=== PATIENT | male | born 1945 | race Asian ===

== ENCOUNTER 2017-07-14 08:00 | Outpatient (RCR) | payer OTHER, SELFPAY ==
--- NOTE | 2017-06-07 10:25 | HP.PTEVAL_ITS ---
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 Date of Evaluation: 05/31/17 Physical Therapist: Sandip Bartlett - Visit Plan Frequency: 2x /Week Duration: 4 Weeks Plan: Start with flexion based exercises, HS stretching, nerve glides, TA activation progression. - Subjective Subjective: Pt. 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 Pt. has lumbar spine degeneration at L2/L3 and L3/L4. Pt. reports having increased pain fro ~10 days. He reports no mechanism of injury, but that his pain just started to occur. Pt. reports pain at lumbar spine, but mostly at posterior thighs and gluteal regions. Pt. denies N/T and no changes in B/B. Pt. reports increased pain with: walking, standing, lifting. Pt. has decreased pain with lying down and heat. Pt. is able to complete all ADls, but has increased pain with work and household activities. Pt. is hopeful to reduce symptoms in order to get back to all activities without limitations. - Pain bilateral posterior thighs Pain Intensity (Out of 10): 4 Pain Intensity Range: 2, 5 lumbar spine Pain Intensity (Out of 10): 3 Pain Intensity Range: 1, 4 - Objective POSTURE: Pt. has redcued lumbar lordosis, normal thoracic kyphosiss. Pt. has slight sway back positioning. Pt. has slight FH positioning. Pt. has normal iliac crest heights with equal wt. shifting between bilateral LEs. PALPATION: Pt. has increased tenderness at lumbar erector spinea throughout lumbar spine. Pt. has no tenderness at SI joint or piriformis bilaterally. No pain at bilateral HS to palpation. NEUROLOGICAL: Pt. has normal sensation to light and sharp touch of bilateral LEs. Pt. has 2+ bilateral achilles and patellar DTR. Pt. is able to rise on heels and toes without issues or LOB. ROM: LUMBAR SPINE : flexion- min loss NE, ext min/mod loss increase NW, SB right min loss NE, SB Left min loss NE, rotation R and L min loss NE. Pt. has normal hip ROM bilaterally, HS tightness noted. MMT: RLE- ankle 5/5 throughout; knee- ext 5/5 , flexion 5-/5;hip- flexion 4+/5, abd 4/5, ext 4+/5. LLE- ankle- 5/5 throughout ; knee- ext 4/5, flexion 5-/5; hip- flexion 4+/5, abd 4/5, ext 4+/5. Core- poor+ . GAIT: Pt. has normal gait pattern, but has increased sway back positioning with gait. Pt. reports increased pain with gait compared to static standing or lying. - Special Tests L/S Slump test left side: Negative L/S Slump test right side: Negative L/S Left Straight Leg Raise: Negative L/S Right Straight Leg Raise: Negative Lumbar Standing: Flexion - Mechanical Response: No effect Lumbar Standing: Flexion - Symptoms During Testing: No effect Lumbar Standing: Flexion - Symptoms After Testing: No effect Lumbar Standing: Extension - Mechanical Response: No effect Lumbar Standing: Extension - Symptoms During Testing: Increases Lumbar Standing: Extension - Symptoms After Testing: No worse Lumbar Standing: Right Side Glides - Mechanical Response: No effect Lumbar Standing: Right Side [place] - Symptoms During Testing: No effect Lumbar Standing: Right Side [place] - Symptoms After Testing: No effect Lumbar Standing: Left Side [place] - Mechanical Response: No effect Lumbar Standing: Left Side [place] - Symptoms During Testing: No effect Lumbar Standing: Left Side [place] - Symptoms After Testing: No effect Lumbar Lying: Flexion - Mechanical Response: No effect Lumbar Lying: Flexion - Symptoms During Testing: Decreases Lumbar Lying: Flexion - Symptoms After Testing: No better Lumbar Lying: Extension - Mechanical Response: No effect Lumbar Lying: Extension - Symptoms During Testing: Increases Lumbar Lying: Extension - Symptoms After Testing: No worse Lumbar Static: Slouched Sit - Mechanical Response: No effect Lumbar Static: Slouched Sit - Symptoms During Testing: No effect Lumbar Static: Slouched Sit - Symptoms After Testing: No effect Lumbar Static: Sitting Erect - Mechanical Response: No effect Lumbar Static: Sitting Erect - Symptoms During Testing: No effect Lumbar Static: Sitting Erect - Symptoms After Testing: No effect Lumbar Static:Lying Prone in Extension - Mechanical Response: No effect Lumbar Static: Lying Prone in Extension - Sx During Testing: Increases Lumbar Static: Lying Prone in Extension - Sx After Testing: Worse - Goals Goal 1:: Pt. to be I with HEP. Goal Time Frame: 4-6 Weeks Goal 2:: Pt. to have increased B hip and core strength by 1/2 grade of all effected musculature reducing stress on lumbar spine with all functional mobility. Goal Time Frame: 4-6 Weeks Goal 3:: Pt. to have increased lumbar spine by 25% in all directions without increase in symptoms. Goal Time Frame: 4-6 Weeks Goal 4:: Pt. to ambulate and tolerate all job activities without issues allowing for increased quality of life. Goal Time Frame: 4-6 Weeks Goal 5:: Pt. to be educated in proper prophalaxis techniques. 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 Pt. has no marked weakness, but does have increased weakness in his core musculature. Pt. would benefit from PT to increase ROM, increase core and hip strength, and decrease symptoms. Rehabilitation Potential: Excellent - Anticipated Interventions Patient/Client Instruction: Educate patient on: Condition, Plan of Care, Risk Factors, Benefits of Fitness Program For the Purpose of:: To improve safety, To improve health and function, To foster healthy habits, To improve decision making, To facilitate caregiver knowledge, To improve self management, To prevent re-injury, To improve ability to perform tasks related to life management, To improve tolerance to ADL's Therapeutic Exercise to Include: Strength training, Power training, Endurance training, Body mechanics, Postural training, Flexibilty training, Passive ROM, Active ROM, Dynamic Lumbar Stabilization, Helga Exercises For the Purpose of:: To decrease pain, To increase ROM, To improve nutrient delivery to tissue, To increase oxygenation perfusion, To improve muscle performance and motor function, To improve gait and locomotor functions, To improve health of tissue, To decrease soft tissue restriction Manual Therapy Techniques to Include: Mobilization, Functional dry needling, Soft tissue mobilization For the Purpose of:: To decrease pain, To increase ROM, To improve nutrient delivery to tissue, To increase oxygenation perfusion, To improve muscle performance and motor function, To improve ability to perform ADL's, To improve health of tissue, To decrease soft tissue restriction, To increase flexibility/ ROM IF ES: Yes Cryotherapy (ice pack, ice massage): Yes Ultrasound (thermal/non thermal): Yes Pelvic traction supine: Yes For the Purpose of:: To decrease pain, To increase ROM, To improve nutrient delivery to tissue, To increase oxygenation perfusion, To improve muscle performance and motor function, To improve ability to perform ADL's, To improve health of tissue, To decrease soft tissue restriction Thank you for the opportunity to evaluate your patient. For Medicare and Medicare HMO plans, please review the plan of care and approve it. It will need to be FAXED BACK to us at [phone] for Medicare purposes. Please let me know if there are questions or concerns regarding this plan of care. Physician Signature: Date:
--- NOTE | 2017-07-22 12:10 | HP.PTDCSUM ---
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 Discharge Date: 07/18/17 Please see the following information for a summary of their discharge status. - Subjective Subjective: Pt. reports I am doing pretty well today. Pt. reports no pain in low back or R leg. Pt. reports minimal LUE pain. Pt. reports being 95% better. Pt. reports occassional L shoulder pain, but is better. - Pain bilateral posterior thighs Pain Intensity (Out of 10): 0 lumbar spine Pain Intensity (Out of 10): 0 R lateral hip Pain Intensity (Out of 10): 0 L shoulder Pain Intensity (Out of 10): 1 - Overall Improvement % Improvement: 95 - Objective Objective/Function: Pt. has improved motion and decreased R sided lumbar/leg pain. Pt. has slight L shoulder pain, but minimal. Pt. is independent with [facility] HEP for both back progression and L RTC stabilization. Pt. reports no issuses. Pt. is sleeping better as well. Pt. is able to complete all ADLs and work activities without issues. - Goals Goal 1:: Pt. to be I with HEP. Goal Progress: Goal Met Goal 2:: Pt. to have increased B hip and core strength by 1/2 grade of all effected musculature reducing stress on lumbar spine with all functional mobility. Goal Progress: Goal Met Goal 3:: Pt. to have increased lumbar spine by 25% in all directions without increase in symptoms. Goal Progress: Goal Met Goal 4:: Pt. to ambulate and tolerate all job activities without issues allowing for increased quality of life. Goal Progress: Goal Met Goal 5:: Pt. to be educated in proper prophalaxis techniques. Goal Progress: Goal Met - Plan Plan: Pt. to be DC from PT to HEP at this point in time. - D/C Information Discharge Comments: Pt. progressed as expected with PT for both lumbar radiculopathy and L shoulder RTC syndrome. Pt. is no longer having pain in R leg or lumbar spine, but does have slight 1/10 pain in L shoulder at times. Pt. is indepedent with HEP for both. Pt. will be DC from PT at this point in time. If there are questions or concerns regarding this patient's physical therapy, please feel free to call me at [phone]. Thank you for the referral of this patient. Sincerely, Sandip Bartlett
== END 2017-07-14 19:00 | disposition home or self-care (01) ==
LOC: PT 08:00
PROVIDERS: Family Provider Internal Medicine; PCP Internal Medicine
DX: S43.422D Sprain of left rotator cuff capsule, subsequent encounter (principal); M47.816 Spondylosis without myelopathy or radiculopathy, lumbar region
CPT/HCPCS: 97035; 97110; 97162

== ENCOUNTER → 2017-08-17 10:00 | Outpatient (CLI) | payer OTHER, SELFPAY | PROVIDERS: Family Provider Internal Medicine; PCP Internal Medicine; Visit Provider Internal Medicine Cardiovascular Disease | DX: R07.9 Chest pain, unspecified (principal) | CPT/HCPCS: 36415; 84484 ==

== ENCOUNTER → 2018-06-30 06:26 | Outpatient (CLI) | payer OTHER, SELFPAY ==
[2018-06-22 08:56] VITALS: BMI 23.1
--- NOTE | 2018-06-30 06:27 | ECHOCS_ITS ---
Reason For Study: S/P CABG Procedure This was a 2D Doppler, Color Flow transthoracic echocardiogram. Exam performed in department. Left Ventricle Normal LV size. Left ventricular systolic function is normal. The estimated ejection fraction is 65 %. Stage 1 diastolic dysfunction. No regional wall motion abnormalities noted. Right Ventricle Normal RV size. Normal systolic function. Atria Normal left atrium. Normal right atrium. Mitral Valve Normal mitral valve. Trivial eccentric mitral valve insufficiency. Tricuspid Valve Normal tricuspid valve. Mild (1+) tricuspid valve insufficiency. Pulmonary artery systolic pressure is 27 mmHg. Pulmonic Valve Normal pulmonic valve. Great Vessels Normal aortic root. The pulmonary artery is normal size. Normal inferior vena cava. Pericardium/Pleural No pericardial effusion. Medication Diluted definity 2ml given slow IV push to enhance endocardial definition. MMode/2D Measurements & Calculations LVIDd: 3.8 cm IVSd: 1.2 cm Ao root diam: 2.9 cm LVIDs: 2.5 cm LVPWd: 1.1 cm RVDd: 2.9 cm FS: 34.5 % LAV(MOD-bp): 32.7 ml EDV(MOD-sp4): 72.0 ml EDV(MOD-sp2): 63.0 ml LAV(MOD-bp) Indexed: 18.1 ml/m2 ESV(MOD-sp4): 21.9 ml EF(MOD-sp2): 69.7 % LAV(MOD-sp2): 29.3 ml EF(MOD-sp4): 69.5 % LAV(MOD-sp4): 33.8 ml SV(MOD-sp4): 50.1 ml SV(MOD-sp2): 43.9 ml LA A4 area: 15.3 cm2 LA dimension(2D): 3.6 cm RA A4 area: 13.0 cm2 Time Measurements MV dec time: 0.30 sec Doppler Measurements & Calculations MV E max maurisio: 64.1 cm/sec Lat Peak E' Maurisio: 6.9 cm/sec Med Peak E' Maurisio: 5.1 cm/sec MV A max maurisio: 86.4 cm/sec E/E' lat: 9.3 E/E' med: 12.6 MV E/A: 0.74 Ao V2 max: 137.6 cm/sec LV V1 max: 123.2 cm/sec PA V2 max: 134.6 cm/sec Ao max P.6 mmHg LV V1 max P.1 mmHg TR max maurisio: 240.1 cm/sec TR max P.1 mmHg Interpretation Summary Normal LV size. Left ventricular systolic function is normal. The estimated ejection fraction is 65 %. Stage 1 diastolic dysfunction. Mild (1+) tricuspid valve insufficiency. Ordering Physician: Beck De La Paz Referring Physician: TEDDY ELENA Performed By: Prema Cunningham, PRADEEP, RVT
--- NOTE | 2018-06-30 08:45 | STRESSREP ---
Stress Test Report Exercise myocardial perfusion stress test. 72-year-old male with a history of coronary artery bypass surgery. Medications: Aspirin, Lipitor, Glucophage, Toprol, losartan. Stress protocol: Resting EKG demonstrates normal sinus rhythm with a rate of 71 bpm normal intervals are noted resting blood pressure 144/82 mmHg. The patient exercised according to regular Rene protocol for total duration of 9 minutes and 46 seconds the maximum heart rate attained was 160 bpm which was 108% of maximum predicted heart rate the maximum workload was 11.3 metabolic equivalents. The patient maintained sinus rhythm throughout the recording. At rest there were no ST or T wave changes noted suggest ischemia peak exercise upsloping ST changes measuring 1.4-1.6 mm were noted. The above did not meet the criteria for ischemia. The test was terminated due to leg fatigue and shortness of breath. The resting blood pressure 144/82 with a peak blood pressure 164/58. No clinical angina was noted. Myocardial perfusion protocol. 11.2 mCi of technetium 99m sestamibi was injected at rest. The patient exercised according to regular Rene protocol for total duration of 9 minutes and 46 seconds at peak exercise 32.5 mCi of technetium 99m sestamibi was injected stress images were obtained stress and rest images were reconstructed and compared in the short axis vertical long horizontal long axis. Gated images were also obtained per Perfusion SPECT analysis: Review of the stress images demonstrate normal uptake of tracer noted in all areas of the myocardium. The resting images similarly demonstrate normal uptake of tracer noted in all areas of the myocardium. No reversibility is noted suggest ischemia. The gated ejection fraction is 80%. Conclusion: Normal exercise myocardial perfusion stress test at a high workload. Excellent functional capacity. No arrhythmias noted. No clinical angina present.
== END ==
PROVIDERS: Family Provider Internal Medicine; PCP Internal Medicine; Referring Provider Internal Medicine Cardiovascular Disease; Visit Provider Internal Medicine Cardiovascular Disease
DX: I25.10 Atherosclerotic heart disease of native coronary artery without angina pectoris (principal); Z95.1 Presence of aortocoronary bypass graft
CPT/HCPCS: 78452; 93017; 93306; A9500; Q9957; A4216; C8929

== ENCOUNTER → 2019-12-25 07:22 | Outpatient (CLI) | payer OTHER, SELFPAY ==
[2018-12-26 06:57] VITALS: BMI 23.1
--- NOTE | 2019-12-25 07:23 | CDU_ITS ---
Reason For Study: vertigo Rt. Velocities/BP Lt. Velocities/BP Prox CCA 95.6/22.6 cm/sec. Prox CCA 78.6/23.9 cm/sec. Mid CCA 79.9/21.3 cm/sec. Mid CCA 77.3/21.3 cm/sec. Dist CCA 77.3/18.6 cm/sec. Dist CCA 95.6/29.1 cm/sec. Prox ICA 64.3/17.3 cm/sec. Prox ICA 87.8/21.3 cm/sec. Mid ICA 59.1/14.7 cm/sec. Mid ICA 59.1/18.6 cm/sec. Dist ICA 52.5/21.3 cm/sec. Dist ICA 56.5/22.6 cm/sec. Rt. ICA/CCA = .8. Lt. ICA/CCA = 1.1. Prox ECA 60.4/9.5 cm/sec. Prox ECA 63.0/6.9 cm/sec. Rt. Vert. 42.1/8.2 cm/sec. Lt. Vert. 61.7/13.4 cm/sec. Right Extracranial There is intimal thickening but no significant atherosclerotic plaque noted in the right common carotid artery. There is intimal thickening but no significant atherosclerotic plaque noted in the right internal carotid artery. There is intimal thickening but no significant atherosclerotic plaque noted in the right external carotid artery. Antegrade flow is noted in the right vertebral artery. Left Extracranial There is intimal thickening but no significant atherosclerotic plaque noted in the left common carotid artery. There is heterogeneous, irregular atherosclerotic plaque noted in the left internal carotid artery. There is intimal thickening but no significant atherosclerotic plaque noted in the left external carotid artery. Antegrade flow is noted in the left vertebral artery. Procedure Carotid Duplex [id number]. The exam was diagnostic. Exam performed in department. Interpretation Summary Minimal intimal thickening of the right internal carotid artery with less than 50% stenosis. <50% stenosis right external carotid Irregular calcific plaque at the proximal left internal carotid artery with less than 50% stenosis. <50% stenosis left external carotid Patent and antegrade vertebrals bilaterally with less than 50% stenosis bilaterally Ordering Physician: Beck De La Paz Performed By: David Gannon RVT
--- NOTE | 2019-12-25 10:14 | STRESSREP ---
Stress Test Report Exercise myocardial perfusion stress test. 74-year-old man with a history of diabetes coronary artery bypass surgery. Stress protocol: Resting EKG demonstrates normal sinus rhythm with a rate of 66 bpm. The resting blood pressure was 142/82 mmHg. The patient exercised according to regular Rene protocol for 9 minutes completing stage III of the Rene protocol. The maximum heart rate was 153 bpm which was 105% of max impacted heart rate the maximum workload was 10.1 metabolic equivalents. At rest there were no ST or T wave changes noted to suggest ischemia at peak exercise upsloping ST changes only were noted approximately 1.1 mm which did not meet the criteria for ischemia. No clinical angina was noted the test was terminated due to dyspnea. The peak blood pressure 178/70 mmHg. Rate-pressure product was 26,800. Myocardial perfusion protocol. 11.1 mCi of technetium 99m sestamibi was injected at rest. Patient exercised according to regular Rene protocol for a total duration of 9 minutes at peak exercise 35.0 mCi of technetium 99m sestamibi was injected stress images were obtained stress and rest images were reconstructed and compared in the short axis vertical long horizontal long axis. Gated images were also obtained P Perfusion SPECT analysis: Review of the stress images demonstrate normal uptake of tracer noted in all areas of the myocardium the resting images similar demonstrate normal uptake of tracer noted in all areas of the myocardium. No reversibility is noted suggest ischemia. Gated SPECT analysis: The gated ejection fraction is 79%. Conclusion: Normal exercise myocardial perfusion stress test at a high workload. Preserved ejection fraction. Excellent functional aerobic capacity. In comparison to the previous stress test from a year ago the above findings are similar except for the patient exercising for 46 seconds less.
== END ==
PROVIDERS: PCP Internal Medicine; Referring Provider Internal Medicine Cardiovascular Disease; Visit Provider Internal Medicine Cardiovascular Disease
DX: I25.10 Atherosclerotic heart disease of native coronary artery without angina pectoris (principal); Z95.1 Presence of aortocoronary bypass graft; R42 Dizziness and giddiness
CPT/HCPCS: 78452; 93017; 93880; A9500; A4216

== ENCOUNTER → 2020-09-11 14:53 | Outpatient (CLI) | payer OTHER, SELFPAY ==
[2018-12-26 06:57] VITALS: BMI 23.1
--- NOTE | 2020-09-11 14:56 | VDLE_ITS ---
Reason For Study: venous insufficiency, swelling RIGHT LEFT CFV is compressible, spontaneous, phasic, CFV is compressible, spontaneous, phasic, competent and demonstrates normal competent, and demonstrates normal augmentation. augmentation. FV is compressible, spontaneous, phasic, FV is compressible, spontaneous, phasic, competent and demonstrates normal competent and demonstrates normal augmentation. augmentation. POP V is compressible, spontaneous, phasic, POP V is compressible, spontaneous, phasic, competent and demonstrates normal competent and demonstrates normal augmentation. augmentation. T/P Trunk is compressible. T/P Trunk is compressible. PTV is compressible. PTV is compressible. RT PerV is compressible. LT PerV is compressible. SFJ is competent and measures .61 cm. SFJ is competent and measures .59 cm. GSV proximal thigh measures .4 x .42 cm. GSV is partially harvested. Short segment of GSV at knee measures .27 x .34 cm. the GSV in the proximal thigh is competent GSV INCOMPETENT throughout for greater than and measures .25 x .27 cm. 0.5 seconds. SSV proximal calf is competent and SSV proximal calf is competent and measures .16 x .21 cm. measures .19 x .23 cm. ASV at knee is INCOMPETENT for greater than 0.5 seconds and measures .29 x .31 cm. Piano Accompanist V 18 cm proximal to the medial malleolus is incompetent for greater than .5 seconds. Procedure This is a venous duplex using B-mode, color flow and spectral Doppler. Exam performed in department. The exam was diagnostic. VL/Venous Duplex US - Fabricio Extrem Interpretation Summary Deep veins of the lower extremities are bilaterally patent and compressible seg mentally. There is no evidence of deep vein thrombosis on either side. Valvular competence appears in tact within the proximal deep venous systems bilaterally. Sapheno-femoral junctions are bilater ally competent . The right great saphenous vein appears patent and compressible segmentally. The rig ht great saphenous vein appears segmentally incompetent. The left great saphenous vein has been pr eviously harvested, but for a short segment in the proximal thigh, which is competent. Small saphen ous veins are patent and competent bilaterally. The accessory saphenous vein at knee level on the ri t is incompetent. An incompetent certified credit counselor vein is noted in the right calf, located 18 centimete rs proximal to the right medial malleolus. Ordering Physician: Gian Colvin Performed By: David Gannon RVT
== END ==
PROVIDERS: PCP Internal Medicine; Referring Provider Podiatrist; Visit Provider Podiatrist
DX: I87.2 Venous insufficiency (chronic) (peripheral) (principal); M79.89 Other specified soft tissue disorders
CPT/HCPCS: 93970

== ENCOUNTER → 2020-09-23 14:05 | Outpatient (CLI) | payer OTHER, SELFPAY ==
[2018-12-26 06:57] VITALS: BMI 23.1
[2020-09-23 15:56] LABS: Anion Gap 7 (5-15); BUN 10 mg/dL (7-18); BUN/Creat Ratio 13.1 RATIO (10-20); Calcium,Total 8.9 mg/dL (8.5-10.1); Chloride 100 mmol/L (98-107); Creatinine, Serum 0.76 mg/dL (0.70-1.30); EST Glomerular Filtration Rate 106 mL/min (>60); Est Glom Filt Rate - Afr Amer 128 mL/min (>60); Glucose 198 mg/dL (74-106); Sodium Level 132 mmol/L (136-145)
[2020-09-23 17:13] LABS: Troponin-I HS 3.5 pg/mL (3.0-78.5)
== END ==
PROVIDERS: PCP Internal Medicine; Referring Provider Internal Medicine Cardiovascular Disease; Visit Provider Internal Medicine Cardiovascular Disease
DX: I25.10 Atherosclerotic heart disease of native coronary artery without angina pectoris (principal); R07.9 Chest pain, unspecified; Z95.1 Presence of aortocoronary bypass graft; I10 Essential (primary) hypertension; E78.00 Pure hypercholesterolemia, unspecified
CPT/HCPCS: 36415; 80048; 84484

== ENCOUNTER 2020-09-24 09:40 | Day surgery (SDC) | payer OTHER, SELFPAY ==
[2020-09-23 16:02] VITALS: BMI 22.0
[2020-09-24 07:21] VITALS: BMI 22.0
--- NOTE | 2020-09-24 09:55 | RAD_ITS ---
STUDY: X-RAY CHEST REASON FOR EXAM: Male, 74 years old. chest pain TECHNIQUE: PA and lateral views of the chest. COMPARISON: 07/28/2015 FINDINGS: Status post median sternotomy. The lungs are clear and expanded. There is no demonstrated pleural abnormality. Normal size heart. Normal mediastinum and maribell. Normal visualized pulmonary arteries. Normal visualized aortic arch and descending thoracic aorta. There is a dextroscoliosis of the thoracic spine. Normal visualized ribs, clavicles, and shoulders. There is no demonstrated abnormality of the visualized soft tissue structures of the upper abdomen. RAD/Chest PA and Lateral IMPRESSION: No active disease. Electronically Signed: Preet Villafuerte MD at 12:49 EDT Tel , Service support ,
[2020-09-24 09:57] LABS: Absolute Lymphocyte Count 1.25 X10^3/uL (0.83-4.51); Absolute Neutrophil Count 3.2 X10^3/uL (2.0-7.7); Basophil# 0.03 X10^3/uL; Basophil% 0.6 % (0-1); Eosinophil# 0.17 X10^3/uL; Eosinophils% 3.3 % (0-5); Hematocrit 44.9 % (40-54); Hemoglobin 14.3 g/dL (13.0-16.5); Lymphocyte # 1.25 X10^3/ul (0.83-4.51); Lymphocyte % 24.4 % (19-41); Mean Corp Hgb Conc 31.8 g/dL (32-36); Mean Corpuscular Hgb 28.3 pg (27.0-32.0); Mean Corpuscular Volume 88.9 fL (80-94); Mean Platelet Vol. 9.3 fl (6.2-12.0); Monocyte# 0.48 X10^3/uL; Monocyte% 9.4 % (0-10); NRBC Flagged by Analyzer 0 % (0-5); Neutrophil # 3.17 X10^3/uL (2.7-7.7); Neutrophil % 61.9 % (47-70); Platelet Count 281 K/mm3 (150-450); RBC Distribution Width CV 12.8 % (11.6-14.6); RBC Distribution Width SD 41.7 fl (35.1-43.9); Red Blood Count 5.05 M/mm3 (4.6-6.2); White Blood Count 5.1 K/mm3 (4.4-11.0)
[2020-09-24 13:01] LABS: Bedside Glucose 74 mg/dL (70-110)
--- NOTE | 2020-09-24 13:05 | CL.D_ITS ---
Patient Name: GRISELDA HANKINS Study Date: 09/24/2020 Performing: Beck De La Paz MD Ht: 68.11 inches 173 cm : 1945 Wt: 145.51 lbs 66 kg Age: 74 Gender: male BSA: 1.79 PROCEDURE(S) PERFORMED [id number]/COR/LV/CABG CLINICAL PROFILE AND INDICATIONS Indications: Worsening Angina Heart Failure: None Stress/Imaging Stress/Image Study Performed: No CAD Presentations: Stable angina. CONCLUSIONS [place] left anterior descending artery with moderate mid segment disease, mild disease noted in the c ircumflex artery, mild to moderate disease noted in the right coronary artery. Saphenous vein graft to the obtuse marginal branch and diagonal branches are patent. THOMAS to the LAD is presumed occluded due to the good flow and lack of competitive flow noted in the LAD territory. Preserved ejection fr action is noted. Patient also developed moderate allergic reaction to the contrast agent despite prior prophylaxis RECOMMENDATIONS Medical therapy DESCRIPTION OF PROCEDURE The patient arrived to the procedure lab. The risks and benefits of the procedure as well as a full d escription of our services here and current unavailability of surgical backup were fully explained to the patient and/or their significant other prior to the catheterization. The Timeout was completed, verifying the correct patient and procedure. The patient's procedural site was prepped and draped in the usual fashion. Local anesthetic was given subcutaneously to right groin region with Lidocaine 2%. Using a modified Seldinger technique, arterial access was obtained via the right femoral artery, a 5 Fr sheath was inserted. Left Coronary Artery selective angiography was performed in multiple views u sing a 5 Fr. JL4 catheter. Right Coronary Artery selective angiography was then performed in multiple views using a 5 Fr. 3DRC (Abdullahi) catheter. Saphenous Vein graft to the Circumflex selective angio graphy was performed in multiple views using a 5 Fr. 3DRC (Abdullahi) catheter. Saphenous Vein graft to the DIAG 1 selective angiography was performed in multiple views using a 5 Fr. 3DRC (Terri dietz) catheter. Left Ventriculography was performed in VILLALOBOS projection using a 5 Fr. Pigtail cathete r. LV to AO pullback pressures were then recorded.Contrast was injected through the sheath and the [facility] Iliac and Femoral artery were assessed for possible closure device.The arterial sheath was pulled and a Mynx closure device was deployed for hemostasis CORONARY ANGIOGRAPHY DOMINANCE: Right Dominant LEFT HEART ASSESSMENT Left Ventricular Ejection Fraction: by LV Gram 65 % Normal LV wall motion Normal Left Ventricular systolic function LEFT MAIN: 30 % Stenosis LEFT ANTERIOR DESCENDING ARTERY: MID LAD: Moderate luminal irregularities up to 50% CIRCUMFLEX ARTERY: Mild luminal irregularities RIGHT CORONARY ARTERY: Moderate luminal irregularities up to 50% RT PLV: 65 % Stenosis GRAFTS: THOMAS graft to the Mid LAD is totally occluded Saphenous Vein graft to the 2nd OM is patent Saphenous Vein graft to the 1st Diagonal is patent COMPLICATIONS PROCEDURE MEDICATIONS Versed 1 mg IV Fentanyl 50 mcg IV Versed 1 mg IV Oxygen: 2 L/min via nasal cannula Benadryl 25 mg IV 09/24/2020 11:54:26 Benadryl 25 mg IV @ 09/24/2020 11:54:26 Pepcid 20 mg IV 09/24/2020 12:42:14 Solu-cortef 100 mg IV 09/24/2020 11:54:18 SUMMARY OF HEMODYNAMIC DATA Time AIR REST ECG 10:28:21 AO 157/77 (109) SA 12:04:42 AO 116/72 (93) 12:07:25 AO 97/67 (83) 12:11:43 LV 123/8, 18 12:21:30 LV 121/12, 18 12:21:36 LV 113/12, 18 12:22:15 LV 112/12, 19 12:22:21 LVp 117/12, 22 12:22:26 AOp 127/62 (91) 12:22:31 AO 127/65 (93) 12:26:28 Signed By Beck De La Paz MD On 09/24/2020 13:04:41 Beck De La Paz MD
[2020-09-24 16:20] VITALS: BP 128/63; PULSE 66; RESP 18; TEMP 36.8; O2SAT 98
[2020-09-24 16:23] VITALS: BMI 21.6
[2020-09-24 16:30] VITALS: PULSE 67
[2020-09-24 19:00] VITALS: PULSE 66
[2020-09-24] MEDS: DiphenhydrAMINE 25 MG Capsule PO (20:44)
[2020-09-24] MEDS: Famotidine 20 MG Tablet 40 MG PO (20:44)
[2020-09-24] MEDS: Atorvastatin Calcium 20 MG Tablet PO (20:44)
[2020-09-24] MEDS: 0.9% Saline Lock 10 ML Syringe IV (20:45)
[2020-09-24] MEDS: Hydrocortisone Sod Succinate 100 MG/2 ML Vial IV (20:45)
[2020-09-24 20:46] VITALS: BP 113/73; PULSE 64; RESP 16; TEMP 36.9; O2SAT 99
[2020-09-24 23:00] VITALS: PULSE 67
[2020-09-25 03:00] VITALS: PULSE 68
[2020-09-25 03:51] VITALS: BP 121/73; PULSE 70; RESP 18; TEMP 36.6; O2SAT 99
--- NOTE | 2020-09-25 06:46 | PCM.PN.CARD ---
Subjective Subjective Patient seen and evaluated. Appears to be doing well. No facial swelling seen and voice back to normal. Objective Data Vital Signs: Vital Signs Temp Pulse Resp BP Pulse Ox 97.9 F 70 18 121/73 H 99 09/25/20 03:51 09/25/20 03:51 09/25/20 03:51 09/25/20 03:51 09/25/20 03:51 Oxygen Delivery Method Room Air Weight: 142 lb Body Mass Index (BMI) 21.6 Intake & Output: Intake and Output for Last 24 Hours 09/23/20 09/24/20 09/25/20 23:59 23:59 23:59 Intake Total 240 / 240 120 / 120 Balance 240 / 240 120 / 120 Lab / Micro Data Result Diagrams: 09/24/20 09:46 Labs: Laboratory Results - last 24 hr 09/24/20 09/24/20 09:46 12:52 WBC 5.1 RBC 5.05 Hgb 14.3 Hct 44.9 MCV 88.9 MCH 28.3 MCHC 31.8 L RDW Std Deviation 41.7 RDW Coeff of Braxton 12.8 Plt Count 281 MPV 9.3 Immature Gran % (Auto) 0.400 Neut % (Auto) 61.9 Lymph % (Auto) 24.4 Parke % (Auto) 9.4 Eos % (Auto) 3.3 Baso % (Auto) 0.6 Absolute Neuts (auto) 3.2 Absolute Lymphs (auto) 1.25 Nucleated RBC % 0 POC Glucose 74 Cardiology Labs/Tests 09/24/20 09:46: WBC 5.1, RBC 5.05, Hgb 14.3, Hct 44.9, MCV 88.9, MCH 28.3, MCHC 31.8 L, Plt Count 281, MPV 9.3, Immature Gran % (Auto) 0.400, Neut % (Auto) 61.9, Lymph % (Auto) 24.4, Parke % (Auto) 9.4, Eos % (Auto) 3.3, Baso % (Auto) 0.6, Absolute Neuts (auto) 3.2, Nucleated RBC % 0 Rhythm: Normal sinus rhythm EKG: ECHO: Stress Test: Cardiac Cath: PCI: CT Surgery: Holter monitor: EPS: PPM: CXR: Chest CT Scan: Radiography Diagnostic Testing: Radiology Impression Chest X-Ray 09/24/20 09:55 IMPRESSION: No active disease. Electronically Signed: Preet Villafuerte MD at 12:49 EDT Tel , Service support , Physical Exam Const oriented x3 and healthy appearing Orientation / Consciousness: awake HEENT normocephalic Eyes PERRL and conjunctivae normal Neck supple, no JVD and no carotid bruits Chest inspection of chest normal Resp normal respiratory effort and clear to auscultation bilaterally Cardio Palpation: normal PMI Rate: regular rate Rhythm: regular rhythm Heart Sounds: S1 normal and S2 normal Peripheral Pulses: pulses 2+ throughout GI normal to inspection, nondistended, normoactive bowel sounds Extremity normal to inspection and no clubbing, cyanosis or edema Psych mental status grossly normal Assessment & Plan Assessment/Plan (1) Allergic angioedema: PLAN: Patient did experience allergic reaction to contrast agent of a moderate degree. Had been prophylaxed with IV Benadryl and Solu-Medrol and was given additional Benadryl, Solu-Medrol, Pepcid with resolution. This morning feels back to normal. Will be discharged for outpatient follow-up. (2) H/O coronary artery bypass surgery: PLAN: He is status post coronary artery bypass surgery. Cardiac catheterization demonstrated patency of the saphenous vein graft to the diagonal and obtuse marginal branch, LAD with mild to moderate disease, left circumflex artery with mild disease, right coronary artery with moderate disease. The THOMAS to the LAD is presumed to be occluded. Ejection fraction was normal. We will continue with medical therapy. (3) Essential (primary) hypertension: PLAN: Blood pressure appears to be under good control and no changes will be made at this time.
--- NOTE | 2020-09-25 06:50 | DCINST_ITS ---
Discharge Instructions Diet Discharge Diet: Low fat / Low cholesterol Activity Discharge Activity: Return to Normal Activity Return to work on:: 09/26/20July shower in (days): 1 Dressing / Incision Call your doctor if your incision/area has: Continuous Slow Oozing, Increased Pain/ Swelling, Increased Redness and Swelling at the incision site Call your doctor if you observe: Fever of 101 or Higher, Shortness of breath and - (Throat discomfort or difficulty swallowing or talking) Change Dressing in: do not change dressing Remove Dressing in: 1 day Follow Up Care Test Results: Test results from this visit will be discussed in further detail a t your follow-up appointment, if applicable. Discharge Plan Admission Attending Provider: Beck De La Paz Primary Care Provider: Jb Merlos Instructions Patient Instructions: ED Chest Pain, Noncardiac Discharge Orders/Prescriptions Prescriptions: Continued losartan 25 mg tablet 25 mg PO DAILY RF: 0 esomeprazole magnesium [Nexium] 40 mg capsule,delayed release(DR/EC) 40 mg PO DAILY PRN (Reason: Heartburn) RF: 0 metformin 500 MG tablet 500 mg PO BIDCM RF: 0 atorvastatin 20 MG tablet 20 mg PO QHS RF: 0 metoprolol succinate 50 MG tablet 50 mg PO DAILY RF: 0 aspirin 81 MG tablet,chewable 81 mg PO DAILY@0800 RF: 0 cholecalciferol (vitamin D3) 1,000 UNIT tablet 1,000 unit PO DAILY RF: 0 nitroglycerin 0.4 mg tablet, sublingual 0.4 mg SUBLINGUAL Q5-15M PRN (Reason: chest pain) Qty: 25 RF: 5 Referrals / Follow Up: Jb Merlos MD [Primary Care Provider] - Disposition Disposition (needs filled in before D/C Order can be placed): Home, Self Care
[2020-09-25 06:55] VITALS: BP 121/73; PULSE 70; RESP 18; TEMP 36.6; O2SAT 99
[2020-09-25 07:00] VITALS: PULSE 66
[2020-09-25 08:10] VITALS: BP 119/55; PULSE 62; RESP 18; TEMP 36.8; O2SAT 100
[2020-09-25 08:14] VITALS: BP 119/55; PULSE 62
[2020-09-25] MEDS: Metoprolol(XL)Succ 50 MG Tablet PO (08:14)
[2020-09-25] MEDS: Losartan Potassium 25 MG Tablet PO (08:14)
[2020-09-25] MEDS: Aspirin 81 MG TAB.CHEW PO (08:14)
== END 2020-09-25 06:50 | disposition home or self-care (01) ==
LOC: CLSP 09:41 → PCU 16:11
PROVIDERS: PCP Internal Medicine; Referring Provider Internal Medicine Cardiovascular Disease; Visit Provider Internal Medicine Cardiovascular Disease
DX: I25.10 Atherosclerotic heart disease of native coronary artery without angina pectoris (principal); I10 Essential (primary) hypertension; R09.89 Other specified symptoms and signs involving the circulatory and respiratory systems; E78.5 Hyperlipidemia, unspecified; E11.9 Type 2 diabetes mellitus without complications; Z95.1 Presence of aortocoronary bypass graft; Z79.82 Long term (current) use of aspirin; Z79.84 Long term (current) use of oral hypoglycemic drugs; Z79.899 Other long term (current) drug therapy
CPT/HCPCS: 36415; 71046; 82962; 85025; 93459; 99152; 99153; C1760; J7040; Q9967; A4216; C1769; J3490

== ENCOUNTER 2021-07-07 08:54 | Outpatient (CLI) | payer OTHER, SELFPAY ==
[2021-07-07 09:27] LABS: Color, Urine Yellow (Yellow); Glucose, Dipstick Normal (Normal); Ketone-Dipstick Negative (Negative); Leukocyte Esterase-Dipstick Negative /ul (Negative); Nitrite-Dipstick Negative (Negative); Occult Blood-Urine 50 /ul (Negative); Protein-Dipstick 15 mg/dl (Negative); Specific Gravity, Urine 1.015 (1.002-1.030); Urine Bilirubin Dipstick Negative (Negative); Urine Clarity Clear (Clear); Urine Urobilinogen Normal (Normal)
== END 2021-07-07 23:59 | disposition home or self-care (01) ==
LOC: LAB 08:55
PROVIDERS: PCP Internal Medicine; Visit Provider Urology
DX: R31.21 Asymptomatic microscopic hematuria (principal)
CPT/HCPCS: 81002

== ENCOUNTER 2022-03-01 13:00 | Outpatient (RCR) | payer OTHER, SELFPAY | END 2022-03-01 19:00 | disposition home or self-care (01) | LOC: PT 13:00 | PROVIDERS: PCP Internal Medicine | DX: M19.071 Primary osteoarthritis, right ankle and foot (principal); M47.24 Other spondylosis with radiculopathy, thoracic region; M40.294 Other kyphosis, thoracic region | CPT/HCPCS: 97014; 97035; 97110; 97140; 97163; G0283 ==

== ENCOUNTER → 2022-05-12 | Outpatient (CLI) | payer OTHER, SELFPAY | END | disposition home or self-care (01) | LOC: SL 20:26 | PROVIDERS: PCP Internal Medicine; Visit Provider Otolaryngology Otolaryngology/Facial Plastic Surgery | DX: R06.83 Snoring (principal); R53.83 Other fatigue; G47.33 Obstructive sleep apnea (adult) (pediatric) | CPT/HCPCS: 95810 ==

== ENCOUNTER → 2022-07-19 | Outpatient (CLI) | payer OTHER, SELFPAY ==
[2022-07-19 10:34] LABS: Absolute Lymphocyte Count 0.88 X10^3/uL (0.83-4.51); Absolute Neutrophil Count 4.4 X10^3/uL (2.0-7.7); Basophil# 0.03 X10^3/uL; Basophil% 0.5 % (0-1); Eosinophil# 0.13 X10^3/uL; Eosinophils% 2.2 % (0-5); Hematocrit 44.8 % (40-54); Hemoglobin 14.7 g/dL (13.0-16.5); Lymphocyte # 0.88 X10^3/ul (0.83-4.51); Lymphocyte % 14.6 % (19-41); Mean Corp Hgb Conc 32.8 g/dL (32-36); Mean Corpuscular Hgb 29.4 pg (27.0-32.0); Mean Corpuscular Volume 89.6 fL (80-94); Mean Platelet Vol. 9.4 fl (6.2-12.0); Monocyte# 0.51 X10^3/uL; Monocyte% 8.5 % (0-10); NRBC Flagged by Analyzer 0 % (0-5); Neutrophil # 4.44 X10^3/uL (2.7-7.7); Neutrophil % 73.9 % (47-70); Platelet Count 332 K/mm3 (150-450); RBC Distribution Width CV 12.4 % (11.6-14.6); RBC Distribution Width SD 40.8 fl (35.1-43.9)
[2022-07-19 11:04] LABS: AST(SGOT) 23 U/L (15-37); Alanine Aminotransfer ALT/SGPT 37 U/L (16-61); Albumin, Serum 3.8 g/dL (3.2-5.0); Alkaline Phosphatase 65 U/L (45-117); Anion Gap 6 (5-15); BUN 10 mg/dL (7-18); BUN/Creat Ratio 14.6 RATIO (10-20); Bilirubin, Direct 0.15 mg/dL (0.00-0.30); CRP, High Sensitivity Cardiac < 0.16 mg/L; Calcium,Total 9.4 mg/dL (8.5-10.1); Chloride 99 mmol/L (98-107); Cholesterol 105 mg/dL (200); Creatinine, Serum 0.68 mg/dL (0.70-1.30); EST Glomerular Filtration Rate 119 mL/min (>60); Est Glom Filt Rate - Afr Amer 144 mL/min (>60); Globulin 3.2 g/dL (2.2-4.2); Glucose 118 mg/dL (74-106); High Density Lipoprotein 59 mg/dL; Potassium 4.4 mmol/L (3.5-5.1); Sodium Level 131 mmol/L (136-145); T4 Total, Thyroxin 8.4 ug/dL (4.5-12.1); Thyroid Stim Hormone (TSH) 3.39 uIU/mL (0.358-3.74); Triglycerides 74 mg/dL; Very Low Density Lipoprotein 15 mg/dL (5-40)
[2022-07-20 13:08] LABS: Anti-dsDNA Ab <1 IU/mL (0-9)
== END | disposition home or self-care (01) ==
LOC: LAB 09:03
PROVIDERS: PCP Internal Medicine; Visit Provider Internal Medicine Cardiovascular Disease
DX: Z95.1 Presence of aortocoronary bypass graft (principal); M89.8X1 Other specified disorders of bone, shoulder; R07.9 Chest pain, unspecified; E78.00 Pure hypercholesterolemia, unspecified
CPT/HCPCS: 36415; 80048; 80061; 80076; 83735; 84436; 84443; 85025; 86141; 86225

== ENCOUNTER → 2022-10-11 | Outpatient (CLI) | payer OTHER, SELFPAY ==
--- NOTE | 2022-10-11 16:15 | VDLE_ITS ---
Reason For Study: Bilateral leg pain RIGHT LEFT GSV is normal. CFV is compressible, spontaneous, phasic, CFV is compressible, spontaneous, phasic, competent, and demonstrates normal competent and demonstrates normal augmentation. augmentation. FV is compressible, spontaneous, phasic, FV is compressible, spontaneous, phasic, competent and demonstrates normal competent and demonstrates normal augmentation. augmentation. POP V is compressible, spontaneous, phasic, POP V is compressible, spontaneous, phasic, competent and demonstrates normal competent and demonstrates normal augmentation. augmentation. T/P Trunk is compressible. T/P Trunk is compressible. PTV is compressible. PTV is compressible. LT PerV is compressible. RT PerV is compressible. GSV previously harvested. Thrombus filled varicose veins, non-dilated, noted in the right mid-distal calf. Procedure This is a venous duplex using B-mode, color flow and spectral Doppler. Exam performed in department. A preliminary report was called and/or faxed to Dr. De La Paz. VL/Venous Duplex US - Fabricio Extrem Interpretation Summary Acute superficial vein thrombosis is noted in right calf varicosities. Deep veins of the bilateral lower extremities are patent and compressible segme ntally. There is no evidence of bilateral lower extremity deep vein thrombosis. The right great sap henous vein appears patent and compressible segmentally. Ordering Physician: Beck De La Paz Referring Physician: Jb Merlos M.D. Performed By: Gertrudis Cruz RVT
== END | disposition home or self-care (01) ==
PROVIDERS: PCP Internal Medicine; Referring Provider Internal Medicine Cardiovascular Disease; Visit Provider Internal Medicine Cardiovascular Disease
DX: M79.661 Pain in right lower leg (principal)
CPT/HCPCS: 93970; 93971

== ENCOUNTER → 2022-11-01 | Outpatient (CLI) | payer OTHER, SELFPAY ==
--- NOTE | 2022-11-01 13:47 | VDLE_ITS ---
Reason For Study: Lt leg pain RIGHT LEFT CFV is compressible, spontaneous, phasic, GSV is normal. competent and demonstrates normal CFV is compressible, spontaneous, phasic, augmentation. competent, and demonstrates normal Procedure augmentation. This is a venous duplex using B-mode, color FV is compressible, spontaneous, phasic, flow and spectral Doppler. competent and demonstrates normal Exam performed in department. augmentation. A preliminary report was called and/or faxed POP V is compressible, spontaneous, phasic, to Dr. Mcclendon. competent and demonstrates normal augmentation. T/P Trunk is compressible. PTV is compressible. LT PerV is compressible. VL/Venous Duplex US, Unilateral Interpretation Summary Deep veins of the left lower extremity are patent and compressible segmentally. There is no evidence of left lower extremity deep vein thrombosis. Valvular competence appears intac t within the proximal deep venous system on the left . The left great saphenous vein appears patent a nd compressible segmentally. The right common femoral vein is patent and compressible . Ordering Physician: Jose Mcclendon Referring Physician: Jb Merlos M.D. Performed By: Gertrudis Cruz RVT
== END | disposition home or self-care (01) ==
LOC: CVS 13:46
PROVIDERS: PCP Internal Medicine; Referring Provider Surgery; Visit Provider Surgery
DX: M79.605 Pain in left leg (principal)
CPT/HCPCS: 93971

== ENCOUNTER → 2023-01-17 | Outpatient (CLI) | payer OTHER, SELFPAY ==
--- NOTE | 2023-01-17 13:13 | VDLE_ITS ---
Reason For Study: Venous Insufficiency RIGHT LEFT CFV is compressible, spontaneous, phasic, CFV is compressible, spontaneous, phasic, competent and demonstrates normal competent, and demonstrates normal augmentation. augmentation. FV is compressible, spontaneous, phasic, FV is compressible, spontaneous, phasic, competent and demonstrates normal competent and demonstrates normal augmentation. augmentation. POP V is compressible, spontaneous, phasic, POP V is compressible, spontaneous, phasic, competent and demonstrates normal competent and demonstrates normal augmentation. augmentation. T/P Trunk is compressible. T/P Trunk is compressible. PTV is compressible. PTV is compressible. RT PerV is compressible. LT PerV is compressible. SFJ is competent and measures 0.52 cm. SFJ is competent and measures 0.59 cm. GSV proximal thigh measures 0.28 x 0.31 cm. GSV HX harvest for CABG. GSV at knee measures 0.30 x 0.36 cm. SSV proximal calf is competent and measures GSV is competent throughout. 0.23 x 0.28 cm. SSV proximal calf is competent and measures 0.23 x 0.28 cm. Procedure This is a venous duplex using B-mode, color flow and spectral Doppler. Exam performed in department. The exam was diagnostic. VL/Venous Duplex US - Fabricio Extrem Interpretation Summary Deep veins of the lower extremities are bilaterally patent and compressible seg mentally. There is no evidence of deep vein thrombosis on either side. Valvular competence appears in tact within the proximal deep venous systems bilaterally. The right great saphenous vein appear s patent and compressible segmentally. The left great saphenous vein is absent, having been previously harvested. Sapheno-femoral junctions are bilaterally competent . The right great saphenous vein appears segmentally competent. Small saphenous veins are patent and competent bilateral ly. Ordering Physician: Jose Mcclendon Referring Physician: Jb Merlos M.D. Performed By: Omar Quezada RVFreeman
== END | disposition home or self-care (01) ==
LOC: CVS 13:11
PROVIDERS: PCP Internal Medicine; Referring Provider Surgery; Visit Provider Surgery
DX: I80.01 Phlebitis and thrombophlebitis of superficial vessels of right lower extremity (principal)
CPT/HCPCS: 93970

== ENCOUNTER 2023-02-02 11:00 | Outpatient (RCR) | payer OTHER, SELFPAY ==
--- NOTE | 2022-11-08 15:17 | HP.PTEVAL_ITS ---
Patient's Visit Information Visit Information Visit Information: GRISELDA HANKINS is a 77 year old M referred to Physical Therapy by HODAN MAHER with a diagnosis of LBP w/o myelopathy or radicupathy. Date of Evaluation: 11/08/22 Physical Therapist: Clifford Alfaro, PT, JULIA, SCS, CSCS Visit Plan Frequency: 3x /Week Duration: 6 Weeks Plan: plan to see 3xweek for 6 weeks. Use modalities and manual therapy to decrease pain Subjective Subjective: Mr. Jas Hankins is a pleasant [employer] who I have treated in the past. He states that about 1-2 months ago he began to experience left side Low back pain. He doesn't remember a specific episode, activity or travel that increased his LBP. Since, the weekend of Oct 30 he has been experiencing left hip and leg pain. He thought that he had developed blood clots and was worked up for a DVT but those were negative. 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 In addition he has been diagnosed with long covid syndrome. Today I placed him in the seated position and tested his DTR he was 3/3 on his right side at knee and Achilles and 2/3 on his left side. He demonstrated weakness with hip flexion and left ext./curl compared to right. Int./ext. hip rotation was WFL's Mildly positive slump test on the left versus r. When I placed him prone he has a little step at L1-2 and tenderness to palpation on the lower spinous processes. Extension in proone and extension with over pressure increased his left hip symptoms. Right sideling with gapping decreased his symptoms. Balance/Special Test Scores Oswestry Low Back Score: 26 Goals Goal 1:: Return demo HEP and understand the diagnosis Goal Time Frame: 1 Week Goal 2:: Place in a postural position that reduces symtoms Goal Time Frame: 1 Week Goal 3:: Intiate a lumbar stabilization program with neutral spine Goal Time Frame: 2 Weeks Rehabilitation Potential Physical Therapy Diagnosis: LBP with L referal Rehabilitation Potential: Good Anticipated Interventions Patient/Client Instruction: Educate patient on: Condition and Plan of Care For the Purpose of:: To decrease pain and To assume or resume ADL's Text: Thank you for the opportunity to evaluate your patient. For Medicare and Medicare HMO plans, please review the plan of care and approve it. It will need to be FAXED BACK to us at [phone] for Medicare purposes. For Medicare only, by signing this I certify the plan of care. Please let me know if there are questions or concerns regarding this plan of care. Physician Signature: Date:
--- NOTE | 2023-02-14 14:00 | HP.PTDCSUM ---
Discharge Summary D/C summary: It has been my pleasure to treat GRISELDA HANKINS referred by HODAN MAHER, with the diagnosis of LBP w/o myelopathy or radicupathy for a total of 27 visit(s). Discharge Date: 02/02/23 Please see the following information for a summary of their discharge status. Subjective Subjective: Today Jas is doing well there is no report of back or leg pain for the past several days. Pain Back: Pain Intensity (Out of 10): 4 Left Hip: Pain Intensity (Out of 10): 0 Left Lower Extremity: Pain Intensity (Out of 10): 4 Overall Improvement % Improvement: 75 Objective Objective/Function: Negative slump and SLR. No referred pain into leg like previously Goals Goal 1:: Return demo HEP and understand the diagnosis Goal Progress: Goal Met Goal 2:: Place in a postural position that reduces symtoms Goal Progress: Goal Met Goal 3:: Intiate a lumbar stabilization program with neutral spine Goal Progress: Goal Met Plan Plan: As I mentioned Jas and his brother are schedule to join fitness memberships. I believe the reason that his therapy took longer to progress was his tolerance to exercises due to his long COVID syndrome. D/C Information Discharge Comments: I feel that jas will continue to progress in strength if he continues with his strengthening routine and begins to build up his aerobic stamina. d/c sentence: If there are questions or concerns regarding this patient's physical therapy, please feel free to call me at [phone]. Thank you for the referral of this patient. Sincerely, Clifford Alfaro, PT, JULIA, SCS, CSCS Balance/Gait/Functional tests Balance/Special Test Scores Oswestry Low Back Score: 17 Improvement % Improvement: 75
== END 2023-02-02 19:00 | disposition home or self-care (01) ==
LOC: PT 11:00
PROVIDERS: PCP Internal Medicine
DX: M47.816 Spondylosis without myelopathy or radiculopathy, lumbar region (principal)
CPT/HCPCS: 97012; 97014; 97035; 97110; 97140; 97162; G0283

== ENCOUNTER → 2023-04-13 | Outpatient (CLI) | payer OTHER, SELFPAY ==
--- NOTE | 2023-04-13 13:50 | RAD_ITS ---
STUDY: X-RAY CHEST REASON FOR EXAM: Male, 77 years old. Shortness of breath. TECHNIQUE: Frontal and lateral views of the chest. COMPARISON: 09/24/2020. FINDINGS: The lungs are clear and expanded. There is no demonstrated pleural abnormality. Normal size heart. Stable sternotomy wires. Normal mediastinum and maribell. Normal visualized pulmonary arteries. Normal visualized aortic arch and descending thoracic aorta. Thoracolumbar scoliosis unchanged. Normal visualized ribs, clavicles, and shoulders. No abnormality of the visualized soft tissue structures of the upper abdomen. RAD/Chest PA and Lateral IMPRESSION: Stable chest with no acute or active cardiopulmonary disease Electronically Signed: Meliton Tellez MD at 15:17 EST ,
[2023-04-13 14:54] LABS: Hematocrit 43.3 % (40-54); Hemoglobin 14.5 g/dL (13.0-16.5); Mean Corp Hgb Conc 33.5 g/dL (32-36); Mean Corpuscular Hgb 29.8 pg (27.0-32.0); Mean Corpuscular Volume 89.1 fL (80-94); Platelet Count 271 K/mm3 (150-450); RBC Distribution Width CV 12.5 % (11.6-14.6); RBC Distribution Width SD 41.3 fl (35.1-43.9); Red Blood Count 4.86 M/mm3 (4.6-6.2); White Blood Count 6.6 K/mm3 (4.4-11.0)
[2023-04-13 15:09] LABS: D-Dimer Quantitative (DVT/PE) 0.29 FEU/ug/m (0.27-0.49)
[2023-04-13 16:00] LABS: BNP,B-Type NATRIURETIC PEPTIDE 39.3 pg/mL (0-100)
[2023-04-13 16:31] LABS: ALB/GLOB Ratio 1.3 RATIO (0.9-2.4); AST(SGOT) 19 U/L (15-37); Alanine Aminotransfer ALT/SGPT 28 U/L (16-61); Albumin, Serum 3.8 g/dL (3.2-5.0); Alkaline Phosphatase 71 U/L (45-117); Anion Gap 6 (5-15); BUN 12 mg/dL (7-18); BUN/Creat Ratio 18.3 RATIO (10-20); Calcium,Total 9.1 mg/dL (8.5-10.1); Chloride 98 mmol/L (98-107); Creatinine, Serum 0.66 mg/dL (0.70-1.30); EST Glomerular Filtration Rate 125 mL/min (>60); Est Glom Filt Rate - Afr Amer 151 mL/min (>60); Glucose 134 mg/dL (74-106); Protein, Total 6.8 g/dL (6.4-8.2); Sodium Level 133 mmol/L (136-145); Troponin-I HS 6 pg/mL (3.0-78.0)
== END | disposition home or self-care (01) ==
PROVIDERS: PCP Internal Medicine; Referring Provider Internal Medicine Cardiovascular Disease; Visit Provider Internal Medicine Cardiovascular Disease
DX: R06.02 Shortness of breath (principal); I25.10 Atherosclerotic heart disease of native coronary artery without angina pectoris; Z95.1 Presence of aortocoronary bypass graft; I10 Essential (primary) hypertension; E78.00 Pure hypercholesterolemia, unspecified
CPT/HCPCS: 36415; 71046; 80053; 83880; 84484; 85027; 85379

== ENCOUNTER 2023-08-14 16:33 | Emergency (ER) | payer OTHER, SELFPAY ==
[2023-08-14 16:35] VITALS: BP 147/66; PULSE 66; RESP 16; TEMP 36.3; O2SAT 100; BMI 21.7
[2023-08-14 17:17] VITALS: BP 153/70; BP 159/78; BP 163/79; PULSE 70; PULSE 71; PULSE 74
--- NOTE | 2023-08-14 17:35 | EX.ED.DYSGE1 ---
HPI History of Present Illness Chief Complaint: Hypotension Narrative Narrative: 77-year-old male presenting with low blood pressures at home. He states his blood pressure is usually normal at about 120/80. He is on losartan 25 mg p.o. daily and metoprolol extended release 50 mg daily. Patient states his medications have not changed. Patient states that on about Tuesday of this week he had 3 days of diarrhea and felt unwell. He was seen by his primary care's nurse practitioner and had orthostatic vital signs done which were normal. He states his CBC and CMP were okay except for sodium was slightly low at around 133. Otherwise his labs were normal. Patient encouraged to drink plenty of water and Gatorade. He states he has been drinking about 48 ounces of water a day and about 12 ounces of Gatorade. His diarrhea has resolved. Does not any abdominal pain. He does state that he urinates frequently because he is on Flomax. 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 He states his fatigue is generally worse in the morning when he wakes up until about 9 or 10:00 in the morning and then he is more alert and awake. He states he does not have a history of sleep apnea but his last apnea test [facility] Medical History Atherosclerotic heart disease of [place] coronary artery without angina pectoris Carotid bruit Essential (primary) hypertension History of DVT (deep vein thrombosis) Hyperlipidemia Type 2 diabetes mellitus Home Medications ?Medication ?Instructions ?Recorded ?Last Taken ?Type aspirin 81 mg chewable tablet 81 mg PO DAILY@0800 heart health 08/26/14 09/24/20 History atorvastatin 20 mg tablet 20 mg PO QHS cholesterol 08/26/14 Unknown History cholecalciferol (vitamin D3) 25 1,000 unit PO DAILY vitamin 08/26/14 Unknown History mcg (1,000 unit) tablet metformin 500 mg tablet 500 mg PO BIDCM diabetes 08/26/14 Unknown History losartan 25 mg tablet 25 mg PO DAILY blood pressure 12/23/17 Unknown History nitroglycerin 0.4 mg sublingual 0.4 mg sublingual Q5-15M PRN chest 04/11/19 Unknown Rx tablet pain #25 tabs tamsulosin 0.4 mg capsule ea PO 05/21/22 Unknown History choline and magnesium salicylate 1 tab PO DAILY 04/13/23 Unknown History 1,000 mg tablet flaxseed oil 1,000 mg capsule 1,000 mg PO DAILY 04/13/23 Unknown History metoprolol succinate 50 mg 25 mg PO DAILY blood pressure 04/13/23 Unknown History tablet,extended release 24 hr zinc gluconate 100 mg tablet 100 mg PO DAILY 04/13/23 Unknown History Allergy/AdvReac Type Severity Reaction Status Date / Time iodine AdvReac Severe Unknown Verified 05/21/22 09:39 lisinopril AdvReac Intermediate Cough Verified 05/21/22 09:39 Iodinated Contrast Media AdvReac Swelling Verified 05/21/22 09:39 (CONTRASTS) niacin AdvReac Upset Verified 05/21/22 09:39 Stomach Family History Brother CAD (coronary artery disease) Sister CAD (coronary artery disease) Father , Age 76 of [place] CAD (coronary artery disease) Myocardial infarction Mother , Age 93 No problems noted. Surgical History H/O coronary artery bypass surgery (05/31/06) History of left heart catheterization (09/24/20) Social History Smoking Status: Never smoker EXAM Physical Exam Const Vital Signs: 08/14/23 16:35 08/14/23 16:51 08/14/23 17:17 Temperature 97.3 F L Temperature Source Temporal Pulse Rate 66 Pulse Rate [Lying] 70 Pulse Rate [Sitting (for 1 minute prior to obtaining)] 71 Pulse Rate [Standing (for 1 minute prior to obtaining)] 74 Respiratory Rate 16 Respiratory Pattern Normal Blood Pressure 147/66 H Blood Pressure [Lying] 153/70 H Blood Pressure [Sitting (for 1 minute prior to obtaining)] 159/78 H Blood Pressure [Standing (for 1 minute prior to obtaining)] 163/79 H Blood Pressure Mean 93 Blood Pressure Mean [Lying] 97 Blood Pressure Mean [Sitting (for 1 minute prior to obtaining)] 105 Blood Pressure Mean [Standing (for 1 minute prior to obtaining)] 107 Pulse Ox 100 Oxygen Delivery Method Room Air 08/14/23 18:35 Temperature Temperature Source Pulse Rate 88 Pulse Rate [Lying] Pulse Rate [Sitting (for 1 minute prior to obtaining)] Pulse Rate [Standing (for 1 minute prior to obtaining)] Respiratory Rate 16 Respiratory Pattern Blood Pressure 144/64 H Blood Pressure [Lying] Blood Pressure [Sitting (for 1 minute prior to obtaining)] Blood Pressure [Standing (for 1 minute prior to obtaining)] Blood Pressure Mean 90 Blood Pressure Mean [Lying] Blood Pressure Mean [Sitting (for 1 minute prior to obtaining)] Blood Pressure Mean [Standing (for 1 minute prior to obtaining)] Pulse Ox 98 Oxygen Delivery Method Room Air General Appearance ED: Negative for pallor HEENT Reports normocephalic, head/scalp atraumatic and moist mucous membranes Eyes PERRL and EOMs intact bilaterally Resp normal respiratory effort and clear to auscultation bilaterally Auscultation: Negative for rales, rhonchi or wheezes Cardio regular rate and regular rhythm GI normal to inspection, nondistended, normoactive bowel sounds Narrative: Deferred Neuro oriented x3 and CN's II-XII intact bilaterally Sensorium / Orientation: alert Motor Exam: strength 5/5 throughout Psych mental status grossly normal Attitude: No agitated Skin no rashes or lesions noted and no wounds General Skin Exam: Negative for jaundice or pallor MDM MDM MDM Narrative Medical decision making narrative: Patient presenting with low blood pressures and reported hypotension at home. He states his blood pressure was in the 100s systolically at home. He has been feeling lightheaded this week and has had some diarrhea which is passing still hydrating pretty well and drinking 48 ounces of water and 12 ounces Gatorade. He has not changed his blood pressure medications. His blood pressure here today on arrival was 147/66. We discussed his symptoms and he stated he had some normal blood work earlier this week. We will check a urinalysis and a CBC to assess white blood cell count, hemoglobin, platelets. BMP to assess renal function, electrolytes, glucose. Orthostatic vital signs to be obtained. Orthostatic vital signs are negative. Patient's blood pressure is normotensive and slightly high. CBC shows a normal white blood cell count of 5.9. Hemoglobin 13.7. Platelets are normal at 259. BMP shows a sodium of 138 chloride 97. Creatinine is 0.59. BUN/creatinine ratio is 27.3. Glucose 72. Patient was given a liter of normal saline. I discussed with the patient that likely he is drinking too much water to electrolyte drink ratio. Can also add salt to his diet. He should continue to drink plenty of fluids. Impression: 1. Lightheadedness 2. Dehydration 3. Hyponatremia Lab Data Labs: Laboratory Results - last 24 hr 08/14/23 08/14/23 08/14/23 17:35 17:35 18:05 WBC Cancelled Corrected WBC Cancelled RBC Cancelled Hgb Cancelled Hct Cancelled MCV Cancelled MCH Cancelled MCHC Cancelled RDW Std Deviation Cancelled RDW Coeff of Braxton Cancelled Plt Count Cancelled MPV Cancelled Immature Gran % (Auto) Cancelled Neut % (Auto) Cancelled Lymph % (Auto) Cancelled [place] % (Auto) Cancelled Eos % (Auto) Cancelled Baso % (Auto) Cancelled Absolute Neuts (auto) Cancelled Absolute Lymphs (auto) Cancelled Total Counted Cancelled Neutrophils % (Manual) Cancelled Band Neutrophils % Cancelled Lymphocytes % (Manual) Cancelled Monocytes % (Manual) Cancelled Eosinophils % (Manual) Cancelled Basophils % (Manual) Cancelled Metamyelocytes % Cancelled Myelocytes % Cancelled Promyelocytes % Cancelled Blast Cells % Cancelled Plasma Cell % (Manual) Cancelled Other Cells % Cancelled Nucleated RBC % Cancelled Nucleated RBCs/100 WBC Cancelled Differential Comment Cancelled Diff Path Review Cancelled Hypersegmented Neuts Cancelled Atypical Lymphocytes Cancelled Reactive Lymphocytes Cancelled Smudge Cells Cancelled Toxic Granulation Cancelled Toxic Vacuolation Cancelled Dohle Bodies Cancelled Solo Rods Cancelled Platelet Estimate Cancelled Plt Morphology Comment Cancelled RBC Morphology Cancelled Cancelled Polychromasia Cancelled Hypochromasia Cancelled Basophilic Stippling Cancelled Anisocytosis Cancelled Microcytosis Cancelled Macrocytosis Cancelled Spherocytes Cancelled Sickle Cells Cancelled Target Cells Cancelled Tear Drop Cells Cancelled Ovalocytes Cancelled Stomatocytes Cancelled [place] Bodies Cancelled Harleen Cells Cancelled Bite Cells Cancelled Crenated Cell Cancelled Acanthocytes (Spur) Cancelled Rouleaux Cancelled Schistocytes Cancelled Sodium 130 L Potassium 4.2 Chloride 97 L Carbon Dioxide 26.0 Anion Gap 7 BUN 16 Creatinine 0.59 L Estim Creat Clear Calc 65.86 Est GFR (MDRD) Af Amer 172 Est GFR (MDRD) Non-Af 142 BUN/Creatinine Ratio 27.3 H Glucose 72 L Calcium 8.7 Urine Color Yellow Urine Clarity Clear Urine pH 6.5 Ur Specific [place] 1.010 Urine Protein Negative Urine Glucose (UA) Normal Urine Ketones Negative Urine Occult Blood 25 H Urine Nitrite Negative Urine Bilirubin Negative Urine Urobilinogen Normal Ur Leukocyte Esterase Negative Urine RBC 0 SEEN Urine WBC 0 SEEN Ur Squamous Epith Cells 0 SEEN Urine Bacteria 0 SEEN Urine Mucus 0 SEEN 08/14/23 18:26 WBC 5.9 Corrected WBC RBC 4.58 L Hgb 13.7 Hct 40.3 MCV 88.0 MCH 29.9 MCHC 34.0 RDW Std Deviation 40.6 RDW Coeff of Braxton 12.5 Plt Count 259 MPV 8.6 Immature Gran % (Auto) 0.300 Neut % (Auto) 64.5 Lymph % (Auto) 21.2 [place] % (Auto) 10.1 H Eos % (Auto) 3.4 Baso % (Auto) 0.5 Absolute Neuts (auto) 3.8 Absolute Lymphs (auto) 1.24 Total Counted Neutrophils % (Manual) Band Neutrophils % Lymphocytes % (Manual) Monocytes % (Manual) Eosinophils % (Manual) Basophils % (Manual) Metamyelocytes % Myelocytes % Promyelocytes % Blast Cells % Plasma Cell % (Manual) Other Cells % Nucleated RBC % 0 Nucleated RBCs/100 WBC Differential Comment Diff Path Review Hypersegmented Neuts Atypical Lymphocytes Reactive Lymphocytes Smudge Cells Toxic Granulation Toxic Vacuolation Dohle Bodies Solo Rods Platelet Estimate Plt Morphology Comment RBC Morphology Polychromasia Hypochromasia Basophilic Stippling Anisocytosis Microcytosis Macrocytosis Spherocytes Sickle Cells Target Cells Tear Drop Cells Ovalocytes Stomatocytes [place] Bodies Harleen Cells Bite Cells Crenated Cell Acanthocytes (Spur) Rouleaux Schistocytes Sodium Potassium Chloride Carbon Dioxide Anion Gap BUN Creatinine Estim Creat Clear Calc Est GFR (MDRD) Af Amer Est GFR (MDRD) Non-Af BUN/Creatinine Ratio Glucose Calcium Urine Color Urine Clarity Urine pH Ur Specific [place] Urine Protein Urine Glucose (UA) Urine Ketones Urine Occult Blood Urine Nitrite Urine Bilirubin Urine Urobilinogen Ur Leukocyte Esterase Urine RBC Urine WBC Ur Squamous Epith Cells Urine Bacteria Urine Mucus Discharge Plan Triage Chief Complaint: Hypotension ED Provider: Juan M Albarran Dx/Rx/DC Orders Prescriptions: No Action losartan 25 mg tablet 25 mg PO DAILY tamsulosin 0.4 mg capsule PO Patient Comments: Take 1 capsule by mouth once daily. flaxseed oil 1,000 mg capsule 1,000 mg PO DAILY Rx Instructions: administer with a meal choline,magnesium salicylate 1,000 mg tablet 1 tab PO DAILY zinc gluconate 100 mg tablet 100 mg PO DAILY metformin 500 MG tablet 500 mg PO BIDCM atorvastatin 20 MG tablet 20 mg PO QHS aspirin 81 MG tablet,chewable 81 mg PO DAILY@0800 cholecalciferol (vitamin D3) 1,000 UNIT tablet 1,000 unit PO DAILY metoprolol succinate 50 mg tablet extended release 24 hr 25 mg PO DAILY nitroglycerin 0.4 mg tablet, sublingual 0.4 mg SUBLINGUAL Q5-15M PRN (Reason: chest pain) Qty: 25 5RF Rx Instructions: until response; do not exceed 3 doses per episode Primary Care Provider: Jb Merlos Referrals: Jb Merlos MD [Primary Care Provider] - Print Language: Latvian
[2023-08-14 18:02] LABS: Anion Gap 7 (5-15); BUN 16 mg/dL (7-18); BUN/Creat Ratio 27.3 RATIO (10-20); Calcium,Total 8.7 mg/dL (8.5-10.1); Chloride 97 mmol/L (98-107); Creatinine, Serum 0.59 mg/dL (0.70-1.30); EST Glomerular Filtration Rate 142 mL/min (>60); Est Glom Filt Rate - Afr Amer 172 mL/min (>60); Estimated Creatinine Clearance 65.86 ml/min; Glucose 72 mg/dL (74-106); Potassium 4.2 mmol/L (3.5-5.1); Sodium Level 130 mmol/L (136-145)
[2023-08-14 18:12] LABS: Bacteria 0 SEEN /hpf (None Seen); Mucous, Urine 0 SEEN /hpf (<or=2+); Red Blood Cells-Urine 0 SEEN /hpf (0-5); Squamous Epithelial Cells - UA 0 SEEN /hpf (0-5); White Blood Cells 0 SEEN /hpf (0-5)
[2023-08-14 18:18] LABS: Color, Urine Yellow (Yellow); Glucose, Dipstick Normal (Normal); Ketone-Dipstick Negative (Negative); Leukocyte Esterase-Dipstick Negative /ul (Negative); Nitrite-Dipstick Negative (Negative); Occult Blood-Urine 25 /ul (Negative); Protein-Dipstick Negative (Negative); Urine Bilirubin Dipstick Negative (Negative); Urine Clarity Clear (Clear); Urine Urobilinogen Normal (Normal); Urine pH 6.5 (5.0 - 8.0)
[2023-08-14 18:35] VITALS: BP 144/64; PULSE 88; RESP 16; O2SAT 98
[2023-08-14 18:58] LABS: Absolute Lymphocyte Count 1.24 X10^3/uL (0.83-4.51); Absolute Neutrophil Count 3.8 X10^3/uL (2.0-7.7); Basophil# 0.03 X10^3/uL; Basophil% 0.5 % (0-1); Eosinophils% 3.4 % (0-5); Hematocrit 40.3 % (40-54); Hemoglobin 13.7 g/dL (13.0-16.5); Lymphocyte # 1.24 X10^3/ul (0.83-4.51); Lymphocyte % 21.2 % (19-41); Mean Corpuscular Hgb 29.9 pg (27.0-32.0); Mean Platelet Vol. 8.6 fl (6.2-12.0); Monocyte# 0.59 X10^3/uL; Monocyte% 10.1 % (0-10); NRBC Flagged by Analyzer 0 % (0-5); Neutrophil # 3.77 X10^3/uL (2.7-7.7); Neutrophil % 64.5 % (47-70); Platelet Count 259 K/mm3 (150-450); RBC Distribution Width CV 12.5 % (11.6-14.6); RBC Distribution Width SD 40.6 fl (35.1-43.9); Red Blood Count 4.58 M/mm3 (4.6-6.2); White Blood Count 5.9 K/mm3 (4.4-11.0)
[2023-08-14] MEDS: 0.9% Normal Saline (1000mL) 1,000 ML 999 ML IV (19:08)
[2023-08-14 19:56] VITALS: BP 145/68; PULSE 75; RESP 11; TEMP 36.6; O2SAT 94
[2023-08-14 20:00] VITALS: BP 160/81; PULSE 88; RESP 16; O2SAT 98
== END 2023-08-14 20:20 | disposition home or self-care (01) ==
PROVIDERS: Emergency Provider Student in an Organized Health Care Education/Training Program; PCP Internal Medicine; Visit Provider Student in an Organized Health Care Education/Training Program
DX: I95.9 Hypotension, unspecified (principal); E11.9 Type 2 diabetes mellitus without complications; E86.0 Dehydration; E87.1 Hypo-osmolality and hyponatremia; R42 Dizziness and giddiness; I10 Essential (primary) hypertension; Z79.899 Other long term (current) drug therapy; I25.10 Atherosclerotic heart disease of native coronary artery without angina pectoris; E78.5 Hyperlipidemia, unspecified; Z79.82 Long term (current) use of aspirin; Z79.84 Long term (current) use of oral hypoglycemic drugs; Z95.5 Presence of coronary angioplasty implant and graft
CPT/HCPCS: 80048; 81001; 85025; 96360; 99284; J7030; A4216

== ENCOUNTER → 2023-09-22 | Outpatient (CLI) | payer OTHER, SELFPAY | END | disposition home or self-care (01) | PROVIDERS: PCP Internal Medicine; Referring Provider Otolaryngology Otolaryngology/Facial Plastic Surgery; Visit Provider Otolaryngology Otolaryngology/Facial Plastic Surgery | DX: J02.9 Acute pharyngitis, unspecified (principal) | CPT/HCPCS: 87070; 87077 ==

== ENCOUNTER → 2023-10-26 | Outpatient (CLI) | payer OTHER, SELFPAY ==
--- NOTE | 2023-10-26 18:39 | CT_ITS ---
STUDY: CT CHEST, ABDOMEN T PELVIS WITHOUT CONTRAST REASON FOR EXAM: Male, 78 years old. sob RADIATION DOSAGE (If Supplied By Facility): CTDIvol = ( 7.65 ) mGy, DLP = ( 688.10 ) mGycm TECHNIQUE: Transaxial imaging was performed without the administration of intravenous contrast material. Individualized dose optimization techniques were used for this CT. COMPARISON: No relevant priors. FINDINGS: CHEST The lungs are normal. There is no demonstrated pleural abnormality. Heart size is normal. There is mild coronary artery calcification Tiny subcentimeter mediastinal nodes likely benign. Normal hilar regions. Normal unenhanced pulmonary arteries. Atherosclerotic changes of the aorta without evidence for aneurysm Postop change status post median sternotomy and CABG Dorsal spine demonstrates degenerative changes . ABDOMEN . Normal liver. Normal gallbladder and extrahepatic biliary system. Normal spleen. Normal pancreas. Normal bilateral adrenal glands. No evidence for renal obstruction. There are bilateral renal cysts which will not require additional imaging. Normal visualized stomach. Normal small intestine. Normal colon. The appendix is visualized and appears normal. Atherosclerotic changes of the aorta without evidence for aneurysm. Normal inferior vena cava. Normal retroperitoneum. Normal abdominal wall. Normal osseous structures. PELVIS Markedly enlarged prostate impinging upon the base of the bladder which is poorly distended and thick walled Normal visualized small intestine. Diffuse fecal retention noted in the colon Minor diverticular changes of the colon without evidence for acute diverticulitis. No evidence for acute appendicitis. There is no pelvic fluid. There is no pelvic lymphadenopathy or mass lesion. Normal visualized pelvic arteries. Normal abdominal wall. Lumbar spine demonstrates degenerative change.. Grade 1 retrolisthesis at L3-4 Probable small bone island in the left ischium and acetabulum CT/CT Chest, Abd, Pelvis WO Cont IMPRESSION: ASHD without evidence for acute cardiopulmonary pathology. Markedly enlarged prostate encroaching upon the base of the bladder which is incompletely distended and thick walled. Minor diverticular changes of the colon without evidence for acute diverticulitis No acute abnormality within the abdomen and pelvis Electronically Signed: Gian Armas MD at 22:58 EDT ,
== END | disposition home or self-care (01) ==
PROVIDERS: PCP Internal Medicine; Referring Provider Internal Medicine Cardiovascular Disease; Visit Provider Internal Medicine Cardiovascular Disease
DX: R06.02 Shortness of breath (principal)
CPT/HCPCS: 71250; 74176

== ENCOUNTER 2024-02-20 16:39 | Emergency (ER) | payer OTHER, SELFPAY ==
[2024-02-20 16:41] VITALS: BP 149/76; PULSE 77; RESP 18; TEMP 36; O2SAT 100; BMI 21.3
--- NOTE | 2024-02-20 17:22 | EDS_ITS ---
HPI HPI - GI History of Present Illness Chief Complaint: Abd Pain Informant: patient Abdominal Pain/Flank Pain Onset: Weeks (1) Context: Gradual Onset Timing: Intermittent Quality: Burning Location: LLQ (Left inguinal area) and - Worsened by: - (Standing) Relieved by: - (Laying down, urination) Nausea/Vomiting/Emesis GI Symptom: Negative for Nausea or Vomiting Diarrhea/Melena/Hematochezia GI Symptom: Negative for Diarrhea, Melena or Hematochezia Associated Symptoms Associated Symptoms: Positive for Frequency; Negative for Dysuria or Hematuria Narrative Narrative: Patient presents with abdominal pain that has been getting worse over the past week. Patient states it is over the left inguinal area. Patient states it is gradually getting worse. Patient describes it as burning. Patient states it is worse with standing and better with laying down. Patient also states it gets better when he urinates. Patient denies any nausea or vomiting. Patient denies any diarrhea, melena, or hematochezia. Patient denies any dysuria or hematuria. Patient does admit to some urinary frequency but states he drinks a lot of water. Patient also admits to some fatigue. Patient states he knows he has a history of prostatic hypertrophy. [facility] Medical History History of DVT (deep vein thrombosis) Essential (primary) hypertension Type 2 diabetes mellitus Hyperlipidemia Atherosclerotic heart disease of [place] coronary artery without angina pectoris Carotid bruit Home Medications ?Medication ?Instructions ?Recorded ?Last Taken ?Type aspirin 81 mg chewable tablet 81 mg PO DAILY@0800 heart health 08/26/14 09/24/20 History atorvastatin 20 mg tablet 20 mg PO QHS cholesterol 08/26/14 Unknown History cholecalciferol (vitamin D3) 25 1,000 unit PO DAILY vitamin 08/26/14 Unknown History mcg (1,000 unit) tablet metformin 500 mg tablet 500 mg PO BIDCM diabetes 08/26/14 Unknown History losartan 25 mg tablet 25 mg PO DAILY blood pressure 12/23/17 Unknown History nitroglycerin 0.4 mg sublingual 0.4 mg sublingual Q5-15M PRN chest 04/11/19 Unknown Rx tablet pain #25 tabs tamsulosin 0.4 mg capsule ea PO 05/21/22 Unknown History choline and magnesium salicylate 1 tab PO DAILY 04/13/23 Unknown History 1,000 mg tablet flaxseed oil 1,000 mg capsule 1,000 mg PO DAILY 04/13/23 Unknown History metoprolol succinate 50 mg 25 mg PO DAILY blood pressure 04/13/23 Unknown History tablet,extended release 24 hr zinc gluconate 100 mg tablet 100 mg PO DAILY 04/13/23 Unknown History escitalopram oxalate 10 mg tablet 10 mg PO DAILY #60 tabs 10/12/23 Unknown Rx Allergy/AdvReac Type Severity Reaction Status Date / Time iodine AdvReac Severe Unknown Verified 02/20/24 16:41 lisinopril AdvReac Intermediate Cough Verified 02/20/24 16:41 Iodinated Contrast Media AdvReac Swelling Verified 02/20/24 16:41 (CONTRASTS) niacin AdvReac Upset Verified 02/20/24 16:41 Stomach Family History Brother CAD (coronary artery disease) Sister CAD (coronary artery disease) Father , Age 76 of [place] CAD (coronary artery disease) Myocardial infarction Mother , Age 93 No problems noted. Surgical History History of left heart catheterization (09/24/20) H/O coronary artery bypass surgery (05/31/06) Social History Smoking Status: Never smoker ROS ROS ED Constitutional Constitutional ED: Denies chills or fever(s) Eyes Eyes: Denies blurry vision or change in vision ENT ENT ED: Denies rhinorrhea or sore throat Cardiovascular Cardiovascular: Denies chest pain or palpitations Respiratory/Chest Respiratory/Chest: Denies cough or dyspnea Gastrointestinal Gastrointestinal: Reports abdominal pain; Denies nausea or vomiting Genitourinary Genitourinary ED: Denies dysuria or hematuria Musculoskeletal Musculoskeletal: Reports back pain; Denies neck pain Integumentary Reports rash; Denies abscess Neurologic Neurologic: Denies headache(s) or weakness Allergic/Immunologic Allergic/Immunologic ED: Denies mouth swelling or urticaria EXAM Physical Exam Const Vital Signs: 02/20/24 16:41 02/20/24 18:40 02/20/24 20:00 Temperature 96.8 F L 98.2 F Temperature Source Temporal Oral Pulse Rate 77 74 86 Respiratory Rate 18 16 15 Blood Pressure 149/76 H 136/82 H 130/76 H Blood Pressure Mean 100 100 94 Pulse Ox 100 99 99 Oxygen Delivery Method Room Air Room Air 02/20/24 20:46 Temperature 98.2 F Temperature Source Pulse Rate 85 Respiratory Rate 16 Blood Pressure 138/73 H Blood Pressure Mean 94 Pulse Ox 99 Oxygen Delivery Method Positive well nourished and well developed General Appearance ED: well developed and NAD HEENT Reports moist mucous membranes Neck supple and no JVD Resp normal respiratory effort and clear to auscultation bilaterally Cardio regular rate and regular rhythm GI non-tender and non-distended Palpation: soft and hernia indirect inguinal left Neuro CN's II-XII intact bilaterally, moves all extremities and no sensory deficits noted Sensorium / Orientation: alert Motor Exam: strength 5/5 throughout Psych mental status grossly normal MDM MDM MDM Narrative Medical decision making narrative: Differential diagnosis includes inguinal hernia, urinary tract infection, inguinal lymphadenopathy, and viral illness. CBC will be obtained to assess for leukocytosis and anemia. Basic metabolic profile will be obtained to assess for hepatic function, renal function, and electrolyte abnormality. Urinalysis will be obtained to assess for urinary tract infection and hematuria. CT scan of the abdomen and pelvis will be obtained to assess for ureteral calculus and inguinal hernia. Lab Data Attestation: I reviewed the patient's lab results. Lab results narrative: CBC was reviewed and was within normal limits. Basic metabolic profile was reviewed. Sodium was slightly low at 132 which is consistent with previous results. Glucose was slightly elevated at 120. The remainder is within normal limits. Urinalysis was reviewed. There is no evidence of urinary tract infection or hematuria. Labs: Laboratory Results - last 24 hr 02/20/24 02/20/24 17:20 17:46 WBC 6.2 RBC 4.62 Hgb 14.0 Hct 40.9 MCV 88.5 MCH 30.3 MCHC 34.2 RDW Std Deviation 41.1 RDW Coeff of Braxton 12.6 Plt Count 260 MPV 8.7 Immature Gran % (Auto) 0.300 Neut % (Auto) 72.0 H Lymph % (Auto) 15.8 L [place] % (Auto) 9.1 Eos % (Auto) 2.1 Baso % (Auto) 0.7 Absolute Neuts (auto) 4.4 Absolute Lymphs (auto) 0.97 Nucleated RBC % 0 Sodium 132 L Potassium 4.1 Chloride 98 Carbon Dioxide 29.0 Anion Gap 6 BUN 15 Creatinine 0.65 L Estim Creat Clear Calc 63.60 Est GFR (MDRD) Af Amer 151 Est GFR (MDRD) Non-Af 125 BUN/Creatinine Ratio 22.9 H Glucose 120 H Calcium 9.0 Urine Color Yellow Urine Clarity Clear Urine pH 6.0 Ur Specific [place] 1.010 Urine Protein Negative Urine Glucose (UA) Normal Urine Ketones Negative Urine Occult Blood 50 H Urine Nitrite Negative Urine Bilirubin Negative Urine Urobilinogen Normal Ur Leukocyte Esterase Negative Urine RBC 0-5 SEEN Urine WBC 0-5 SEEN Ur Squamous Epith Cells 0-5 SEEN Urine Bacteria 0 SEEN Urine Mucus 0 SEEN Radiography Diagnostic Testing: Clinical Impression(s) from Imaging Studies Abdomen/Pelvis CT 02/20/24 17:27 IMPRESSION: Nonspecific ileus diffuse fecal retention in the colon. Mild left renal pelvocaliectasis and hydroureter without definitive evidence for ureteral calculus of uncertain etiology possibly due to recent passage of stone or reflux.. Clinical correlation recommended Electronically Signed: Gian Armas MD at 19:01 EST , CT scan of the abdomen and pelvis was obtained. There is a nonspecific ileus and diffuse fecal retention. There is no acute abnormality noted. This was interpreted by the radiologist and was also independently reviewed by myself. Treatment and Re-Evaluation :: Patient was advised that his pain could be coming from a left inguinal hernia. It is easily reducible. There is no evidence of strangulation or incarceration. Patient was instructed to follow-up with his primary care physician in 5 to 7 days. Patient was also given a referral for general surgery. Patient was instructed return if worse in any way. Patient understood and was agreeable with the plan. All questions were answered. Discharge Plan Triage Chief Complaint: Abd Pain ED Provider: Hilario Dumont Dx/Rx/DC Orders Clinical Impression: Hernia, inguinal, left, Constipation Instructions: ED Constipation (Adult), ED Hernia (Adult) Prescriptions: No Action losartan 25 mg tablet 25 mg PO DAILY tamsulosin 0.4 mg capsule PO Patient Comments: Take 1 capsule by mouth once daily. flaxseed oil 1,000 mg capsule 1,000 mg PO DAILY Rx Instructions: administer with a meal choline,magnesium salicylate 1,000 mg tablet 1 tab PO DAILY zinc gluconate 100 mg tablet 100 mg PO DAILY metformin 500 MG tablet 500 mg PO BIDCM atorvastatin 20 MG tablet 20 mg PO QHS aspirin 81 MG tablet,chewable 81 mg PO DAILY@0800 cholecalciferol (vitamin D3) 1,000 UNIT tablet 1,000 unit PO DAILY metoprolol succinate 50 mg tablet extended release 24 hr 25 mg PO DAILY nitroglycerin 0.4 mg tablet, sublingual 0.4 mg SUBLINGUAL Q5-15M PRN (Reason: chest pain) Qty: 25 5RF Rx Instructions: until response; do not exceed 3 doses per episode escitalopram oxalate 10 mg tablet 10 mg PO DAILY Qty: 60 3RF Primary Care Provider: Jb Merlos Referrals: Jb Merlos MD [Primary Care Provider] - 5-7 Days Mita Yepez MD [Med Staff - Active Staff] - 5-7 Days Print Language: Citizen Of [place] Disposition Disposition: Home, Self Care Discharge Date/Time: 02/20/24 21:11
--- NOTE | 2024-02-20 17:27 | CT_ITS ---
STUDY: CT ABDOMEN AND PELVIS WITHOUT CONTRAST REASON FOR EXAM: Male, 78 years old. Pain RADIATION DOSAGE (If Supplied By Facility): CTDIvol = ( 6.07 ) mGy, DLP = ( 273.06 ) mGycm TECHNIQUE: Transaxial images were obtained from the dome of the diaphragm to the symphysis pubis without oral contrast, and without intravenous contrast. Sagittal and coronal images were reconstructed. Individualized dose optimization techniques were used for this CT. COMPARISON: None. FINDINGS: The visualized lung bases are unremarkable. The visualized portions of the heart are within normal limits. Normal liver. Contracted gallbladder without calcified stones likely physiologic.. Normal spleen. Normal pancreas. Normal bilateral adrenal glands. Right renal cyst is noted which will not require additional imaging. .. There is also a large left renal cyst which will not require additional imaging however there is also mild dilatation of left renal collecting system and ureter of uncertain etiology without definitive evidence for ureteral calculus possibly due to recent passage of a stone or reflux. Normal visualized stomach. Mild ileus with diffuse fecal retention in the colon. Scattered diverticular disease of the colon without evidence for acute diverticulitis. The appendix is visualized and appears normal. Atherosclerotic change of the aorta without evidence for aneurysm. Normal inferior vena cava. Normal retroperitoneum. Incompletely distended thick walled bladder in association with enlarged prostate possibly due to chronic outlet obstruction. Cystitis is less likely however clinical correlation is recommended. Large fat-containing left inguinal hernia without stranding in the fat. Lumbar spine demonstrates degenerative change . Grade 1 retrolisthesis at L2-3 CT/Abdomen/Pelvis without Cont IMPRESSION: Nonspecific ileus diffuse fecal retention in the colon. Mild left renal pelvocaliectasis and hydroureter without definitive evidence for ureteral calculus of uncertain etiology possibly due to recent passage of stone or reflux.. Clinical correlation recommended Electronically Signed: Gian Armas MD at 19:01 EST ,
[2024-02-20 17:43] LABS: Absolute Lymphocyte Count 0.97 X10^3/uL (0.83-4.51); Absolute Neutrophil Count 4.4 X10^3/uL (2.0-7.7); Basophil# 0.04 X10^3/uL; Basophil% 0.7 % (0-1); Eosinophil# 0.13 X10^3/uL; Eosinophils% 2.1 % (0-5); Hematocrit 40.9 % (40-54); Lymphocyte # 0.97 X10^3/ul (0.83-4.51); Lymphocyte % 15.8 % (19-41); Mean Corp Hgb Conc 34.2 g/dL (32-36); Mean Corpuscular Hgb 30.3 pg (27.0-32.0); Mean Corpuscular Volume 88.5 fL (80-94); Mean Platelet Vol. 8.7 fl (6.2-12.0); Monocyte# 0.56 X10^3/uL; Monocyte% 9.1 % (0-10); NRBC Flagged by Analyzer 0 % (0-5); Neutrophil # 4.43 X10^3/uL (2.7-7.7); Platelet Count 260 K/mm3 (150-450); RBC Distribution Width CV 12.6 % (11.6-14.6); RBC Distribution Width SD 41.1 fl (35.1-43.9); Red Blood Count 4.62 M/mm3 (4.6-6.2); White Blood Count 6.2 K/mm3 (4.4-11.0)
[2024-02-20 17:54] LABS: Bacteria 0 SEEN /hpf (None Seen); Mucous, Urine 0 SEEN /hpf (<or=2+)
[2024-02-20 18:08] LABS: Color, Urine Yellow (Yellow); Glucose, Dipstick Normal (Normal); Ketone-Dipstick Negative (Negative); Leukocyte Esterase-Dipstick Negative /ul (Negative); Nitrite-Dipstick Negative (Negative); Occult Blood-Urine 50 /ul (Negative); Protein-Dipstick Negative (Negative); Urine Bilirubin Dipstick Negative (Negative); Urine Clarity Clear (Clear); Urine Urobilinogen Normal (Normal)
[2024-02-20 18:32] LABS: Anion Gap 6 (5-15); BUN 15 mg/dL (7-18); BUN/Creat Ratio 22.9 RATIO (10-20); Chloride 98 mmol/L (98-107); Creatinine, Serum 0.65 mg/dL (0.70-1.30); EST Glomerular Filtration Rate 125 mL/min (>60); Est Glom Filt Rate - Afr Amer 151 mL/min (>60); Glucose 120 mg/dL (74-106); Potassium 4.1 mmol/L (3.5-5.1); Sodium Level 132 mmol/L (136-145)
[2024-02-20 18:40] VITALS: BP 136/82; PULSE 74; RESP 16; O2SAT 99
[2024-02-20 18:55] LABS: Squamous Epithelial Cells - UA 0-5 SEEN /hpf (0-5)
[2024-02-20 18:59] LABS: Red Blood Cells-Urine 0-5 SEEN /hpf (0-5); White Blood Cells 0-5 SEEN /hpf (0-5)
[2024-02-20 20:00] VITALS: BP 130/76; PULSE 86; RESP 15; TEMP 36.8; O2SAT 99
[2024-02-20 20:46] VITALS: BP 138/73; PULSE 85; RESP 16; TEMP 36.8; O2SAT 99
== END 2024-02-20 21:11 | disposition home or self-care (01) ==
PROVIDERS: Emergency Provider Emergency Medicine; PCP Internal Medicine; Referring Provider Emergency Medicine; Visit Provider Emergency Medicine
DX: K40.90 Unilateral inguinal hernia, without obstruction or gangrene, not specified as recurrent (principal); E11.9 Type 2 diabetes mellitus without complications; I25.10 Atherosclerotic heart disease of native coronary artery without angina pectoris; K59.00 Constipation, unspecified; I10 Essential (primary) hypertension; E78.5 Hyperlipidemia, unspecified; Z79.82 Long term (current) use of aspirin; Z79.84 Long term (current) use of oral hypoglycemic drugs; Z79.899 Other long term (current) drug therapy
CPT/HCPCS: 74176; 80048; 81001; 85025; 99283; A4216

== ENCOUNTER 2024-04-02 06:11 | Emergency (ER) | payer OTHER, SELFPAY ==
[2024-04-02 06:13] VITALS: BP 145/80; PULSE 70; RESP 16; TEMP 36.1; O2SAT 100; BMI 21.9
[2024-04-02] MEDS: Lidocaine Jelly 2% 20 ML Syringe (URO-JET) 1 APPLIC TOPICAL (06:28)
[2024-04-02 06:59] LABS: Bacteria 0 SEEN /hpf (None Seen); Mucous, Urine 0 SEEN /hpf (<or=2+); Squamous Epithelial Cells - UA 0 SEEN /hpf (0-5); White Blood Cells 0 SEEN /hpf (0-5)
[2024-04-02 07:11] LABS: Color, Urine Yellow (Yellow); Glucose, Dipstick Normal (Normal); Ketone-Dipstick Negative (Negative); Leukocyte Esterase-Dipstick Negative /ul (Negative); Nitrite-Dipstick Negative (Negative); Occult Blood-Urine 25 /ul (Negative); Protein-Dipstick Negative (Negative); Urine Bilirubin Dipstick Negative (Negative); Urine Clarity Clear (Clear); Urine Urobilinogen Normal (Normal)
[2024-04-02 07:12] LABS: Anion Gap 7 (5-15); BUN 9 mg/dL (7-18); BUN/Creat Ratio 16.8 RATIO (10-20); Calcium,Total 8.4 mg/dL (8.5-10.1); Chloride 87 mmol/L (98-107); Creatinine, Serum 0.54 mg/dL (0.70-1.30); EST Glomerular Filtration Rate 157 mL/min (>60); Est Glom Filt Rate - Afr Amer 190 mL/min (>60); Estimated Creatinine Clearance 65.13 ml/min; Glucose 125 mg/dL (74-106); Potassium 4.5 mmol/L (3.5-5.1); Sodium Level 121 mmol/L (136-145)
[2024-04-02 07:24] LABS: Red Blood Cells-Urine 0-5 SEEN /hpf (0-5)
--- NOTE | 2024-04-02 07:31 | EX.ED.DYSGE1 ---
HPI History of Present Illness Chief Complaint: Complaint Informant: patient and friend Narrative Narrative: Patient is a 78-year-old male with past medical history of CAD hypertension hyperlipidemia. He recently underwent surgery at outside hospital for a hernia on March 22. He also has a history of BPH. He states he has been doing well but that over the last 10 to 12 hours has only been able to get a small amount of urine out and has been feeling like his abdomen is beginning to distend and become painful. Therefore with concern for urinary retention he presents for evaluation. The patient also reports that his sodium values have been running low and has concern that it may have dropped from his last testing on March 22. He does report he drank more fluids last night to see if this would help with urination but denies any ingestion of medication that is not his own history of SIADH or polydipsia [facility] Medical History History of DVT (deep vein thrombosis) Essential (primary) hypertension Type 2 diabetes mellitus Hyperlipidemia Atherosclerotic heart disease of [place] coronary artery without angina pectoris Carotid bruit Home Medications ?Medication ?Instructions ?Recorded ?Last Taken ?Type aspirin 81 mg chewable tablet 81 mg PO DAILY@0800 heart health 08/26/14 09/24/20 History atorvastatin 20 mg tablet 20 mg PO QHS cholesterol 08/26/14 Unknown History cholecalciferol (vitamin D3) 25 1,000 unit PO DAILY vitamin 08/26/14 Unknown History mcg (1,000 unit) tablet losartan 25 mg tablet 25 mg PO DAILY blood pressure 12/23/17 Unknown History tamsulosin 0.4 mg capsule 0.4 mg PO QHS 05/21/22 Unknown History escitalopram oxalate 10 mg tablet 10 mg PO DAILY #60 tabs 10/12/23 Unknown Rx metformin 500 mg tablet,extended 500 mg PO DAILY 04/02/24 Unknown History release 24 hr metoprolol succinate 25 mg 25 mg PO DAILY 04/02/24 Unknown History tablet,extended release 24 hr (Toprol XL) Allergy/AdvReac Type Severity Reaction Status Date / Time iodine AdvReac Severe Unknown Verified 04/02/24 06:15 lisinopril AdvReac Intermediate Cough Verified 04/02/24 06:15 Iodinated Contrast Media AdvReac Swelling Verified 04/02/24 06:15 (CONTRASTS) niacin AdvReac Upset Verified 04/02/24 06:15 Stomach Family History Brother CAD (coronary artery disease) Sister CAD (coronary artery disease) Father , Age 76 of [place] CAD (coronary artery disease) Myocardial infarction Mother , Age 93 No problems noted. 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) Social History Smoking Status: Never smoker ROS ROS ED Constitutional Constitutional ED: Denies chills or fever(s) ENT ENT ED: Denies sore throat Cardiovascular Cardiovascular: Denies chest pain Respiratory/Chest Respiratory/Chest: Denies cough or dyspnea Gastrointestinal Gastrointestinal: Reports abdominal pain; Denies diarrhea, nausea or vomiting Genitourinary Genitourinary ED: Reports other Details: Positive urinary retention Musculoskeletal Musculoskeletal: Denies back pain Integumentary Reports other Details: Positive abdominal bruising Neurologic Neurologic: Denies headache(s), paresthesias or weakness Hematologic/Lymphatic Hematologic/Lymphatic: Denies easy bleeding or easy bruising EXAM Physical Exam Const Vital Signs: 04/02/24 06:13 Temperature 97 F L Temperature Source Temporal Pulse Rate 70 Respiratory Rate 16 Blood Pressure 145/80 H Blood Pressure Mean 101 Pulse Ox 100 Positive well nourished and well developed General Appearance ED: well developed; Negative for pallor HEENT HEENT Narrative: Normocephalic atraumatic Eyes PERRL and EOMs intact bilaterally General Eye ED: Negative for scleral icterus Neck supple and no JVD Resp normal respiratory effort and clear to auscultation bilaterally Cardio regular rate and regular rhythm GI GI Narrative: Patient has organomegaly in the lower mid abdomen/suprapubic region consistent with a distended bladder and acute urinary retention. There is mild pain of the palpation over top the distended bladder. Patient has ecchymosis to the anterior aspect of his abdomen consistent with recent hernia surgery. Surgical wounds are clean dry and intact. No secondary findings to suggest infection and no obvious seroma or hematoma noted. Auscultation: normoactive bowel sounds Palpation: soft Narrative: No blood or discharge from the urethral meatus. No testicular masses or swelling. No secondary soft tissue changes to suggest Kian's gangrene Extremity normal to inspection Neuro oriented x3, CN's II-XII intact bilaterally and no sensory deficits noted Sensorium / Orientation: alert Motor Exam: strength 5/5 throughout Psych mental status grossly normal Skin no rashes or lesions noted Skin Narrative: Soft tissue changes to the abdominal wall consistent recent hernia surgery as documented above General Skin Exam: Negative for jaundice or pallor MDM MDM MDM Narrative Medical decision making narrative: Patient presented to the ER slightly hypertensive but otherwise with stable vital. He reported roughly 10 to 12 hours since his last normal urination. Physical exam is consistent with acute urinary retention most likely brought about by his recent surgery/anesthesia and his history of BPH. Secondary to this a Ojeda catheter was placed and there was spontaneous resolution of the organomegaly and resolution of the patient's symptoms. In order to rule out acute kidney injury from the 10 to 12 hours without urination basic blood work was obtained. Creatinine is 0.54 which is near baseline and goes against LEXII. There is also concern for potential secondary UTI so urine sample was sent for testing and does not reveal signs of infection. As the patient does have a history of hyponatremia the base metabolic panel was also checked and now shows that it has decreased from 129 on March 22 down to 121. Chart review suggest that losartan may be the cause of his hyponatremia. A random cortisol level as well as a urinary osmole value will be checked. However as the patient is asymptomatic do not feel there is need for admission. The case was discussed with his head of sales promotion Dr. De La Paz who recommends that as losartan may be potential cause that we stop the medication for the next week. He feels there is no need for additional medications as patient is also on metoprolol. There is also potential that Lexapro could be the patient's cause for hyponatremia but the patient states he is only been on this for a few days and therefore this is most likely not the cause. Dr. De La Paz also inform me that after the patient surgery his brother was instructing him to drink lots of water as he felt he needed to rehydrate after the procedure and the excessive free water drinking could have led to the drop in sodium. Therefore at this time he does not have LEXII he is not uroseptic he is asymptomatic from the hyponatremia and his urinary retention has been resolved with the Ojeda catheter there is no need for further workup and he can follow-up as an outpatient. History & Record Review Discussion w/independent historian: Patient and Friend Lab Data Attestation: I reviewed the patient's lab results. Labs: Laboratory Results - last 24 hr 04/02/24 06:52 Sodium 121 L Potassium 4.5 Chloride 87 L Carbon Dioxide 27.0 Anion Gap 7 BUN 9 Creatinine 0.54 L Estim Creat Clear Calc 65.13 Est GFR (MDRD) Af Amer 190 Est GFR (MDRD) Non-Af 157 BUN/Creatinine Ratio 16.8 Glucose 125 H Calcium 8.4 L Urine Color Yellow Urine Clarity Clear Urine pH 7.0 Ur Specific [place] 1.010 Urine Protein Negative Urine Glucose (UA) Normal Urine Ketones Negative Urine Occult Blood 25 H Urine Nitrite Negative Urine Bilirubin Negative Urine Urobilinogen Normal Ur Leukocyte Esterase Negative Urine RBC 0-5 SEEN Urine WBC 0 SEEN Ur Squamous Epith Cells 0 SEEN Urine Bacteria 0 SEEN Urine Mucus 0 SEEN Discharge Plan Triage Chief Complaint: Complaint ED Provider: Dominick Ortiz Dx/Rx/DC Orders Clinical Impression: Acute urinary retention, Essential (primary) hypertension, Hyponatremia, BPH (benign prostatic hyperplasia) Instructions: ED Ojeda Catheter, Care, ED Hyponatremia, ED Urinary Retention, Male Prescriptions: No Action losartan 25 mg tablet 25 mg PO DAILY tamsulosin 0.4 mg capsule 0.4 mg PO QHS Patient Comments: Take 1 capsule by mouth once daily. atorvastatin 20 MG tablet 20 mg PO QHS aspirin 81 MG tablet,chewable 81 mg PO DAILY@0800 cholecalciferol (vitamin D3) 1,000 UNIT tablet 1,000 unit PO DAILY metformin 500 mg tablet extended release 24 hr 500 mg PO DAILY metoprolol succinate [Toprol XL] 25 mg tablet extended release 24 hr 25 mg PO DAILY escitalopram oxalate 10 mg tablet 10 mg PO DAILY Qty: 60 3RF Primary Care Provider: Jb Merlos Referrals: Eliud Landry MD [Med Staff - Active Staff] - Jb Merlos MD [Primary Care Provider] - Activity Restrictions/Additional Instructions: Please stop your losartan for the next week to see if this helps improve your low sodium. Also please reduce your water ingestion as this could have driven down your sodium value. Follow-up with urology for repeat evaluation and to discuss Ojeda catheter removal. Return to the ER should you have any further concerns Print Language: Montene[place] Disposition Disposition: Home, Self Care
[2024-04-02 08:34] LABS: Osmolality, Urine 297 mOsm/KG
[2024-04-02 08:57] VITALS: BP 151/74; PULSE 78; RESP 18; TEMP 36.8; O2SAT 95
== END 2024-04-02 09:09 | disposition home or self-care (01) ==
PROVIDERS: Emergency Provider Emergency Medicine; PCP Internal Medicine; Visit Provider Emergency Medicine
DX: R33.8 Other retention of urine (principal); E11.9 Type 2 diabetes mellitus without complications; I10 Essential (primary) hypertension; N40.1 Benign prostatic hyperplasia with lower urinary tract symptoms; E87.1 Hypo-osmolality and hyponatremia; E78.5 Hyperlipidemia, unspecified; I25.10 Atherosclerotic heart disease of native coronary artery without angina pectoris; Z79.82 Long term (current) use of aspirin; Z79.899 Other long term (current) drug therapy
CPT/HCPCS: 51702; 80048; 81001; 82533; 83935; 99284

== ENCOUNTER → 2024-04-03 | Outpatient (CLI) | payer OTHER, SELFPAY ==
[2024-04-03 17:20] LABS: Anion Gap 9 (5-15); BUN 13 mg/dL (7-18); BUN/Creat Ratio 23.6 RATIO (10-20); Calcium,Total 8.3 mg/dL (8.5-10.1); Chloride 88 mmol/L (98-107); Creatinine, Serum 0.55 mg/dL (0.70-1.30); EST Glomerular Filtration Rate 152 mL/min (>60); Est Glom Filt Rate - Afr Amer 184 mL/min (>60); Glucose 154 mg/dL (74-106); Potassium 4.2 mmol/L (3.5-5.1); Sodium Level 122 mmol/L (136-145)
== END | disposition home or self-care (01) ==
LOC: LAB 15:14
PROVIDERS: PCP Internal Medicine; Referring Provider Internal Medicine Cardiovascular Disease; Visit Provider Internal Medicine Cardiovascular Disease
DX: E87.1 Hypo-osmolality and hyponatremia (principal)
CPT/HCPCS: 36415; 80048

== ENCOUNTER → 2024-09-10 | Outpatient (CLI) | payer OTHER, SELFPAY ==
--- NOTE | 2024-09-10 10:00 | RAD_ITS ---
PROCEDURE: CHEST PA AND LATERAL 09/10/2024 REASON FOR EXAM: Coronary artery disease. TECHNIQUE: CHEST PA AND LATERAL COMPARISON: Chest radiograph April 13, 2023 FINDINGS: Hardware: Sternotomy wires and mediastinal vascular clips from bypass surgery. Heart: Normal size. Mediastinum: Normal contour. Lungs: Clear. Bones: No aggressive process. Stable scoliosis. RAD/Chest PA and Lateral IMPRESSION: No acute process. Stable exam compared to prior Reading Location: [facility]
--- NOTE | 2024-09-10 10:08 | ECHOD_ITS ---
Reason For Study : CORONARY ARTERY DISEASE Procedure This was a 2D Doppler, Color Flow transthoracic echocardiogram. Myocardial strain analysis was performed in this exam to aid in the assessment of cardiac function. Exam performed in department. Left Ventricle Normal LV size. The left ventricular ejection fraction is 60 %. No regional wall motion abnormalities noted. Right Ventricle Normal RV size. Normal systolic function. Atria Normal left atrium. Normal right atrium. Mitral Valve There is mild to moderate mitral annular calcification. Trivial eccentric mitral valve insufficiency. Tricuspid Valve Normal tricuspid valve. Mild (1+) tricuspid valve insufficiency. Pulmonary artery systolic pressure is 40 mmHg. Aortic Valve Trisinus/trileaflet aortic valve. Peak aortic valve gradient 15 mmHg. Mean aortic valve gradient 8 mmHg. Mild aortic stenosis. Pulmonic Valve Normal pulmonic valve. Great Vessels Normal aortic root. The pulmonary artery is normal size. Inferior vena cava collapse with respiration. Pericardium/Pleural No pericardial effusion. MMode/2D Measurements & Calculations LVIDd: 3.8 cm IVSd: 1.0 cm LVOT diam: 1.9 cm LVIDs: 1.9 cm LVPWd: 1.0 cm LVOT area: 2.7 cm2 RVDd: 3.6 cm FS: 50.0 % asc Aorta Diam: 3.0 cm LAV(MOD-bp): 39.3 ml LVAd ap4: 16.7 cm2 LAV(MOD-bp) Indexed: 23.4 ml/m2 LVLd ap4: 6.5 cm LAV(MOD-sp2): 45.4 ml EDV(MOD-sp4): 35.5 ml LAV(MOD-sp4): 32.2 ml EDV(sp4-el): 36.2 ml LVAs ap4: 7.1 cm2 LVLs ap4: 5.2 cm ESV(MOD-sp4): 9.2 ml ESV(sp4-el): 8.3 ml EF(MOD-sp4): 74.2 % EF(sp4-el): 77.0 % LVAd ap2: 15.4 cm2 SV(MOD-sp4): 26.4 ml SV(MOD-sp2): 19.4 ml LVLd ap2: 6.7 cm SI(MOD-sp4): 15.7 ml/m2 SI(MOD-sp2): 11.6 ml/m2 EDV(MOD-sp2): 30.6 ml EDV(sp2-el): 30.3 ml LVAs ap2: 8.6 cm2 LVLs ap2: 5.7 cm ESV(MOD-sp2): 11.2 ml ESV(sp2-el): 11.0 ml EF(MOD-sp2): 63.3 % SV(sp4-el): 27.8 ml Ao sinus diam: 2.[address] Junction: 2.2 cm LA dimension(2D): 3.6 cm LA A4 area: 13.7 cm2 RA A4 area: 11.3 cm2 TAPSE: 1.7 cm Time Measurements MV dec time: 0.17 sec Doppler Measurements & Calculations MV E max maurisio: 93.6 cm/sec Lat Peak E' Maurisio: 10.7 cm/sec Med Peak E' Maurisio: 8.9 cm/sec MV A max maurisio: 87.2 cm/sec E/E' lat: 8.7 E/E' med: 10.5 MV E/A: 1.1 MV dec slope: 554.7 cm/sec2 Ao V2 max: 192.9 cm/sec LV V1 max: 125.3 cm/sec Ao max P.9 mmHg LV V1 max P.3 mmHg Ao V2 mean: 134.7 cm/sec LV V1 mean P.9 mmHg Ao mean P.1 mmHg LV V1 mean: 79.7 cm/sec Ao V2 VTI: 44.2 cm LV V1 VTI: 28.9 cm AV (velocity ratio): 0.65 CINTIA(I,D): 1.8 cm2 CINTIA(V,D): 1.8 cm2 SV(LVOT): 78.6 ml PA V2 max: 124.1 cm/sec TR max maurisio: 300.3 cm/sec TR max P.1 mmHg ECHO/Echo Complete Interpretation Summary Normal LV size. No regional wall motion abnormalities noted. Mean aortic valve gradient 8 mmHg. Trisinus/trileaflet aortic valve. Mild aortic stenosis. The left ventricular ejection fraction is 60 %. Pulmonary artery systolic pressure is 40 mmHg. The global longitudinal strain = -19.4 % (normal). Ordering Physician: Beck De La Paz Referring Physician: Jb Merlos M.D. Performed By: Kathie Ernandez RDCS
--- NOTE | 2024-09-10 20:07 | STRESSREP ---
Stress Test Report Pharmacologic myocardial perfusion stress test. 78-year-old male with a history of coronary artery disease status post coronary bypass surgery for preop evaluation Resting EKG demonstrates sinus rhythm with a rate of 66 bpm. Resting blood pressure is 144/82 mmHg. 0.4 mg of regadenoson was infused per usual protocol followed by rapid intravenous saline flush injection. Continuous EKG monitoring was performed. The maximum heart rate was 94 bpm which was 66% of max impacted heart rate the maximum workload was 1 metabolic equivalent. At rest there were no ST or T wave changes noted to suggest ischemia and at peak infusion nonspecific ST changes were noted which did not meet the criteria for ischemia. No clinical angina is noted. The final blood pressure was 124/62 mmHg. Myocardial perfusion protocol. 11.7 mCi of technetium 99m sestamibi was injected at rest. 0.4 mg of regadenoson was infused per usual protocol. At peak infusion 34.4 mCi of technetium 99m sestamibi was injected stress images were obtained stress and rest images were reconstructed and compared in the short axis vertical long and horizontal long axis. Gated images were also obtained. Perfusion SPECT analysis: Review of the stress images demonstrate normal uptake of tracer noted in all areas of the myocardium. The resting images similar demonstrated normal uptake of tracer noted in all areas of the myocardium. No areas of reversibility are noted to suggest ischemia and no previous infarct is noted. Gated SPECT analysis: The gated ejection fraction is over 80%. Conclusion: Normal pharmacologic myocardial perfusion stress test. Preserved ejection fraction.
== END | disposition home or self-care (01) ==
PROVIDERS: PCP Internal Medicine; Referring Provider Internal Medicine Cardiovascular Disease; Visit Provider Internal Medicine Cardiovascular Disease
DX: I25.10 Atherosclerotic heart disease of native coronary artery without angina pectoris (principal)
CPT/HCPCS: 71046; 78452; 93017; 93306; A9500; A4216; J2785

== ENCOUNTER 2024-10-31 14:30 | Inpatient (IN) | payer OTHER, MEDICARE, SELFPAY ==
[2024-10-31 14:37] VITALS: BP 125/64; PULSE 78; RESP 16; TEMP 36.8; O2SAT 100; BMI 22.1
[2024-10-31 16:51] LABS: Mucous, Urine 0 SEEN /hpf (<or=2+); Squamous Epithelial Cells - UA 0 SEEN /hpf (0-5)
[2024-10-31 16:54] LABS: Color, Urine Yellow (Yellow); Glucose, Dipstick Normal (Normal); Ketone-Dipstick Negative (Negative); Leukocyte Esterase-Dipstick Negative /ul (Negative); Nitrite-Dipstick Negative (Negative); Occult Blood-Urine 250 /ul (Negative); Protein-Dipstick 30 mg/dl (Negative); Specific Gravity, Urine 1.010 (1.002-1.030); Urine Bilirubin Dipstick Negative (Negative)
[2024-10-31 17:03] VITALS: BP 125/64; PULSE 78; RESP 16; TEMP 36.8; O2SAT 100
[2024-10-31 17:06] LABS: Red Blood Cells-Urine 50-100 SEEN /hpf (0-5)
[2024-10-31 22:00] VITALS: PULSE 82; RESP 16
[2024-10-31] MEDS: Senna/Docusate Sodium 1 Tablet 2 TABLET PO (22:14)
[2024-11-01 06:00] LABS: Hematocrit 33.1 % (40-54); Hemoglobin 11.1 g/dL (13.0-16.5); Immature Granulocytes Count 0.030 X10^3/uL (0.0-0.0); Mean Corp Hgb Conc 33.5 g/dL (32-36); Mean Corpuscular Volume 89.2 fL (80-94); Mean Platelet Vol. 9.3 fl (6.2-12.0); NRBC Flagged by Analyzer 0 % (0-5); Platelet Count 181 K/mm3 (150-450); RBC Distribution Width CV 13.1 % (11.6-14.6); RBC Distribution Width SD 42.8 fl (35.1-43.9); Red Blood Count 3.71 M/mm3 (4.6-6.2); White Blood Count 5.3 K/mm3 (4.4-11.0)
[2024-11-01 06:20] LABS: AST(SGOT) 26 U/L (<=37); Alanine Aminotransfer ALT/SGPT 19 U/L (<=46); Albumin, Serum 3.0 g/dL (3.4-4.8); Alkaline Phosphatase 61 U/L (40-129); Anion Gap 8 (5-15); BUN 14 mg/dL (4-19); BUN/Creat Ratio 24.7 RATIO (10-20); Calcium,Total 8.5 mg/dL (7.6-11.0); Carbon Dioxide 26.4 mmol/L (21.0-32.0); Chloride 98 mmol/L (98-108); Estimated Creatinine Clearance 64.69 ml/min (50-250); Globulin 2.3 g/dL (2.2-4.2); Glucose 110 mg/dL (70-99); Magnesium 1.9 mg/dL (1.5-2.2); Potassium 5.0 mmol/L (3.3-5.1)
[2024-11-01 07:00] VITALS: BP 136/65; PULSE 83; RESP 18; TEMP 36.9; O2SAT 95
[2024-11-01] MEDS: metFORMIN (XR) 500 MG Tablet PO (08:16)
--- NOTE | 2024-11-01 09:32 | HP.PCM_ITS ---
Documented by User: SALAS Arnold 11/01/24 10:22 HPI - General General Date of Admission: 10/31/24 Date of Service: 11/01/24 Chief Complaint: rehab follow TKR HPI Narrative GRISELDA HANKINS (Bala), is a very pleasant 79 M who presents with debility related to left total knee replacement. He has history of coronary artery disease, primary essential hypertension, hyperlipidemia, type 2 diabetes, hyponatremia, BPH and urinary retention. Patient did have a total left knee replacement on 10/29/2024. At that time he did have a Ojeda catheter that was removed following surgery. He then experienced urinary retention in which the Ojeda catheter was replaced on 10/30/2024. He did present to the inpatient rehab unit with a Ojeda catheter in place. UA on 10/31/24. prior to admission to the inpatient rehab showed moderate 250 RBCs, 0-5 leukocytes, no nitrates or bacteria growth. I did review the patient's medication list with him which he indicated that he currently takes sodium chloride tablets 1 g twice daily. This order was placed. Patient did have a sodium of 132 and does have history of hyponatremia. Discussion with Dr. Castle indicated that we should place the patient on a fluid restriction of 1800 mL/day to assist with maintaining his sodium levels. I did review his previous admissions and reviewed his echocardiogram from 09/10/2024. EF was 60% showed a mild to moderate annular calcification on the patient's mitral valve, tricuspid is mild 1+ valve insufficiency, mild aortic stenosis otherwise normal. Based on the patient's urinary retention and patient having history of urinary retention we will leave the Ojeda catheter in for 48 hours prior to removing. Plan will be to remove the Ojeda catheter on 11/03/2024. When discussing the patient's pain with him he states that when he is seated his pain is minimal and it is a 2- 3/10. He states that when he eats he begins to work with physical therapy his pain does elevate to the 8/10 level. We did have a discussion about the importance of keeping his pain under control as best possible so that he can work with physical therapy to the best of his ability. Patient states agreement. Patient did receive oxycodone 5 mg p.o. 2 hours prior to physical therapy so that he would be more able to participate to his full potential. He is also receiving scheduled Tylenol every 8 hours to assist with maintaining his pain over time. Patient is in agreement that he needs to stay on top of his pain rather than getting behind his pain and understands the need to request medications prior to his pain getting out of control. He is also receiving cyclobenzaprine 10 mg p.o. every 8 hours to assist with muscle spasms. On assessment of his left lower extremity I did note that his knee is swollen but not pitting. There is no heat or erythema noted. He does have a Mepilex in place to his surgical incision which is clean dry and intact. Will continue to monitor. All questions answered. I did spend 74 minutes reviewing this patient's previous charts, discussion with Dr. Castle about the patient's care and plans going forward. Reviewing labs and radiological studies. Patient assessment, documentation and ordering. [facility] Medical History History of DVT (deep vein thrombosis) Essential (primary) hypertension Type 2 diabetes mellitus Hyperlipidemia Atherosclerotic heart disease of [place] coronary artery without angina pectoris Carotid bruit Home Medications ?Medication ?Instructions ?Recorded ?Last Taken ?Type aspirin 81 mg chewable tablet 81 mg PO DAILY@0800 hear t health 08/26/14 10/31/24 History atorvastatin 20 mg tablet 20 mg PO QHS cholesterol 04/1110/30/24 History cholecalciferol (vitamin D3) 25 1,000 unit PO DAILY vi tamin 08/26/14 Unknown History mcg (1,000 unit) tablet losartan 25 mg tablet 25 mg PO DAILY blood pressur e 12/23/17 Unknown History tamsulosin 0.4 mg capsule 0.4 mg PO QHS BPH 05/21/22 0 10/30/24 22:00 History escitalopram oxalate 10 mg tablet 10 mg PO DAILY depre ssion #60 tabs 10/12/23 10/30/24 Rx metformin 500 mg tablet,extended 500 mg PO DAILY blood sugar 04/02/24 10/31/24 History release 24 hr metoprolol succinate 25 mg 25 mg PO DAILY blood pressu re 04/02/24 10/31/24 History tablet,extended release 24 hr (Toprol XL) acetaminophen 500 mg tablet 1,000 mg PO Q8 pain Unknown History cyclobenzaprine 10 mg tablet 10 mg PO Q8H PRN muscle s pasms 10/31/24 10/30/24 History oxycodone 5 mg tablet 5 mg PO Q6H PRN pain 5 Unknown History polyethylene glycol 3350 17 17 g PO DAILY bowel mobili ty 10/31/24 Unknown History gram/dose oral powder (Miralax) urea 15 gram oral powder packet 1 packet PO DAILY sodi um 10/31/24 10/31/24 History (Ure-Na) Allergy/AdvReac Type Severity Reaction Status Date / Time iodine AdvReac Severe Unknown Verified 08/16/24 15:23 lisinopril AdvReac Intermediate Cough Verified 08/16/24 15:23 Iodinated Contrast Media AdvReac Swelling Verified 08/16/24 15:23 (CONTRASTS) niacin AdvReac Upset Verified 08/16/24 15:23 Stomach Family History Brother CAD (coronary artery disease) Sister CAD (coronary artery disease) Father , Age 76 of [place] CAD (coronary artery disease) Myocardial infarction Mother , Age 93 No problems noted. 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) Social History Smoking Status: Never smoker ROS Review of Systems ROS Unobtainable: Denies due to encephalopathy, due to endotracheal tube, due to mental condition, due to mental status or other Constitutional Constitutional: Reports systems reviewed and no addt'l complaints, except as documented and as per HPI Eyes Eyes: Reports systems reviewed and no addt'l complaints, except as documented ENT HEENT: Reports systems reviewed and no addt'l complaints, except as documented Respiratory/Chest Respiratory/Chest: Reports cough and other Details: Patient states intermittent cough that is not troublesome Gastrointestinal Gastrointestinal: Reports systems reviewed and no addt'l complaints, except as documented Genitourinary Genitourinary: Reports difficulty urinating and other Details: Patient does have a Ojeda catheter in place for urinary retention prior to admission Musculoskeletal Musculoskeletal: Reports as per HPI, extremity pain, joint pain, joint swelling, muscle spasms and muscle weakness Integumentary Integumentary: Reports systems reviewed and no addt'l complaints, except as documented and as per HPI Neurologic Neurologic: Reports systems reviewed and no addt'l complaints, except as documented Psychiatric Psychiatric: Reports systems reviewed and no addt'l complaints, except as documented Endocrine Endocrinology: Reports systems reviewed and no addt'l complaints, except as documented Hematologic/Lymphatic Hematologic/Lymphatic: Reports systems reviewed and no addt'l complaints, except as documented Allergic/Immunologic Allergic/Immunologic: Reports systems reviewed and no addt'l complaints, except as documented Vital Signs Vital Signs Vital Signs: 10/31/24 14:37 10/31/24 15:37 10/31/24 17:03 Temperature 98.2 F 98.2 F Temperature Source Temporal Temporal Pulse Rate 78 78 Pulse Strength Respiratory Rate 16 16 Respiratory Effort Normal Non-Labored Respiratory Depth Normal Respiratory Pattern Normal Blood Pressure 125/64 H 125/64 H Blood Pressure Mean 84 84 Blood Pressure Source Monitor Monitor Blood Pressure Position Semi-Fowlers Semi-Fowlers Blood Pressure Location Right Arm Right Arm Pulse Ox 100 100 Oxygen Delivery Method Room Air Room Air Room Air 10/31/24 22:00 10/31/24 22:00 11/01/24 07:00 Temperature 98.4 F Temperature Source Temporal Pulse Rate 82 83 Pulse Strength Normal (2+) Respiratory Rate 16 18 Respiratory Effort Normal Non-Labored Respiratory Depth Normal Respiratory Pattern Normal Blood Pressure 136/65 H Blood Pressure Mean 88 Blood Pressure Source Blood Pressure Position Blood Pressure Location Pulse Ox 95 Oxygen Delivery Method Room Air Room Air 11/01/24 07:00 11/01/24 08:56 Temperature 98.4 F Temperature Source Temporal Pulse Rate 83 Pulse Strength Normal (2+) Respiratory Rate 18 Respiratory Effort Respiratory Depth Respiratory Pattern Blood Pressure 136/65 H Blood Pressure Mean 88 Blood Pressure Source Blood Pressure Position Blood Pressure Location Pulse Ox 95 Oxygen Delivery Method Room Air Weight Weight: 136 lb 14.513 oz Body Mass Index (BMI) 22.1 Physical Exam Const alert, oriented x3 and no apparent distress General Appearance: cooperative, comfortable and well kempt Orientation / Consciousness: awake, oriented to person, oriented to place and oriented to time Exam Limitations: no limitations HEENT normocephalic Mouth: oral and palatal mucosa normal Eyes PERRL Neck full ROM General: normal visual inspection Lymph Lymphatic: no lymphadenopathy noted Chest Chest: abnormal inspection of the chest Resp normal respiratory effort, normal air movement, no retractions, no use of accessory muscles and clear to auscultation bilaterally Effort and Inspection: able to speak in complete sentences Cardio regular rate, regular rhythm, S1 normal heart sound and S2 normal heart sound Bruits: carotid bruit left Peripheral Pulses: pulses 2+ throughout GI normal to inspection, nondistended, normoactive bowel sounds, soft to palpation, non-tender and non-distended no CVA tenderness Bladder / Kidney Exam: catheter in place Back/Spine normal ROM Extremity Extremity Narrative: Left TKR General Extremity: other findings Other Details: Per HPI Peripheral Pulses: Yes pulses 2+ throughout Skin no rashes or lesions noted General Skin Exam: no breakdown and elasticity normal Wound Narrative: Left knee surgical incision. Dressing is clean dry and intact, no ecchymosis, heat or drainage. Edema noted Neuro oriented x3 Sensorium / Orientation: awake, alert, oriented to person, oriented to place and oriented to time Speech: speech normal Psych mental status grossly normal Appearance: grossly normal Attitude: calm and engaged Activity / Motor Behavior: appropriate eye contact Speech: normal speech Insight: insight good Judgement: judgement good Results Lab / Micro Data Attestation: I reviewed the patient's lab results. 11/01/24 05:37 11/01/24 05:37 Labs: Laboratory Results - last 24 hr 10/31/24 16:42: POC Glucose 128 H 10/31/24 16:45: Urine Color Yellow, Urine Clarity Clear, Urine pH 8.0, Ur Specific Kingsley 1.010, Urine Protein 30 H, Urine Glucose (UA) Normal, Urine Ketones Negative, Urine Occult Blood 250 H, Urine Nitrite Negative, Urine Bilirubin Negative, Urine Urobilinogen Normal, Ur Leukocyte Esterase Negative, Urine RBC 50-100 SEEN, Urine WBC 0-5 SEEN, Ur Squamous Epith Cells 0 SEEN, Urine Bacteria 0 SEEN, Urine Mucus 0 SEEN 10/31/24 22:23: POC Glucose 136 H 11/01/24 05:37: WBC 5.3, RBC 3.71 L, Hgb 11.1 L, Hct 33.1 L, MCV 89.2, MCH 29.9, MCHC 33.5, RDW Std Deviation 42.8, RDW Coeff of Braxton 13.1, Plt Count 181, MPV 9.3, Immature Gran % (Auto) 0.600, Neut % (Auto) 65.5, Lymph % (Auto) 16.0 L, M yady % (Auto) 12.2 H, Eos % (Auto) 5.1 H, Baso % (Auto) 0.6, Absolute Neuts (auto) 3.5, Absolute Lymphs (auto) 0.85, Nucleated RBC % 0, Sodium 132 L, Potassium 5.0, Chloride 98, Carbon Dioxide 26.4, Anion Gap 8, BUN 14, Creatinine 0.56 L, Estim Creat Clear Calc 64.69, Est GFR (MDRD) Non-Af 99, BUN/Creatinine Ratio 24.7 H, Glucose 110 H, Calcium 8.5, Phosphorus 3.1, Magnesium 1.9, Total Bilirubin 0.47, AST 26, ALT 19, Alkaline Phosphatase 61, Total Protein 5.3 L, A lbumin 3.0 L, Globulin 2.3, Albumin/Globulin Ratio 1.3 11/01/24 07:10: POC Glucose 111 H Imaging Per HPI Assessment & Plan Assessment/Plan (1) Physical debility: (2) Painful total knee replacement, left: QUALIFIERS: Encounter type: subsequent encounter Qualified Code(s): T84.84XD - Pain due to internal orthopedic prosthetic devices, implants and grafts, subsequent encounter; Z96.652 - Presence of left artificial knee joint PLAN: Physical debility/painful total left knee pain replacement 1. Continue with PT/OT 2. Polar Care per protocol 3. Incentive spirometry 10 times per hour while awake 4. Fall precautions 5. Wound care per protocol 6. Tylenol 1 g p.o. scheduled every 8 hours 7. Cyclobenzaprine 10 mg p.o. every 8 hours 8. Oxycodone 5 mg p.o. 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 Blood sugars AC and at bedtime 2. Sliding scale insulin per protocol 3. Metformin 500 mg p.o. daily 4. May discontinue sliding scale insulin once patient's blood sugars are consistently within normal limits Charges/Coding Visit Charges Inpatient E&M: 07342 Init Hosp L2 Documented by User: Dr. Ria Martin, 11/02/24 11:50 HPI - General General Date of Admission: 10/31/24 HPI Narrative GRISELDA HANKINS (Bala), is a very pleasant 79 M who presents with debility related to left total knee replacement. He has history of coronary artery disease, primary essential hypertension, hyperlipidemia, type 2 diabetes, hyponatremia, BPH and urinary retention. Patient did have a total left knee replacement on 10/29/2024. At that time he did have a Ojeda catheter that was removed following surgery. He then experienced urinary retention in which the Ojeda catheter was replaced on 10/30/2024. He did present to the inpatient rehab unit with a Ojeda catheter in place. UA on 10/31/24. prior to admission to the inpatient rehab showed moderate 250 RBCs, 0-5 leukocytes, no nitrates or bacteria growth. I did review the patient's medication list with him which he indicated that he currently takes sodium chloride tablets 1 g twice daily. This order was placed. Patient did have a sodium of 132 and does have history of hyponatremia. Discussion with Dr. Martin indicated that we should place the patient on a fluid restriction of 1800 mL/day to assist with maintaining his sodium levels. I did review his previous admissions and reviewed his echocardiogram from 09/10/2024. EF was 60% showed a mild to moderate annular calcification on the patient's mitral valve, tricuspid is mild 1+ valve insufficiency, mild aortic stenosis otherwise normal. Based on the patient's urinary retention and patient having history of urinary retention we will leave the Ojeda catheter in for 48 hours prior to removing. Plan will be to remove the Ojeda catheter on 11/03/2024. When discussing the patient's pain with him he states that when he is seated his pain is minimal and it is a 2- 3/10. He states that when he begins to work with physical therapy his pain does elevate to the 8/10 level. We did have a discussion about the importance of keeping his pain under control as best possible so that he can work with physical therapy to the best of his ability. Patient states agreement. Patient did receive oxycodone 5 mg p.o. 2 hours prior to physical therapy so that he would be more able to participate to his full potential. He is also receiving scheduled Tylenol every 8 hours to assist with maintaining his pain over time. Patient is in agreement that he needs to stay on top of his pain rather than getting behind his pain and understands the need to request medications prior to his pain getting out of control. He is also receiving cyclobenzaprine 10 mg p.o. every 8 hours to assist with muscle spasms. On assessment of his left lower extremity I did note that his knee is swollen but not pitting. There is no heat or erythema noted. He does have a Mepilex in place to his surgical incision which is clean dry and intact. Will continue to monitor. All questions answered. He was admitted to the acute inpt rehab unit at [facility] on 10/31/24 for 3 hours of therapy daily to restore function /independence at or near his level prior to surgery. I did spend 74 minutes reviewing this patient's previous charts, discussion with Dr. Martin about the patient's care and plans going forward. Reviewing labs and radiological studies. Patient assessment, documentation and ordering. I independently interviewed and examined the patient. I reviewed Marilee Yip's note and agree with her findings. We discussed the plan for treatment and the orders were written. I suspect the urine retention is related to narcotics and Flexeril. Will change the muscle relaxer to Tizanidine. Plan a voiding trial on Tuesday. Recheck a BMP on Tuesday and an . Fluid restrict to 1800 cc daily. [facility] Medical History History of DVT (deep vein thrombosis) Essential (primary) hypertension Type 2 diabetes mellitus Hyperlipidemia Atherosclerotic heart disease of [place] coronary artery without angina pectoris Carotid bruit Home Medications ?Medication ?Instructions ?Recorded ?Last Taken ?Type aspirin 81 mg chewable tablet 81 mg PO DAILY@0800 hear t health 08/26/14 10/31/24 History atorvastatin 20 mg tablet 20 mg PO QHS cholesterol 04/1110/30/24 History cholecalciferol (vitamin D3) 25 1,000 unit PO DAILY vi tamin 08/26/14 Unknown History mcg (1,000 unit) tablet losartan 25 mg tablet 25 mg PO DAILY blood pressur e 12/23/17 Unknown History tamsulosin 0.4 mg capsule 0.4 mg PO QHS BPH 05/21/22 0 10/30/24 22:00 History escitalopram oxalate 10 mg tablet 10 mg PO DAILY depre ssion #60 tabs 10/12/23 10/30/24 Rx metformin 500 mg tablet,extended 500 mg PO DAILY blood sugar 04/02/24 10/31/24 History release 24 hr metoprolol succinate 25 mg 25 mg PO DAILY blood pressu re 04/02/24 10/31/24 History tablet,extended release 24 hr (Toprol XL) acetaminophen 500 mg tablet 1,000 mg PO Q8 pain Unknown History cyclobenzaprine 10 mg tablet 10 mg PO Q8H PRN muscle s pasms 10/31/24 10/30/24 History oxycodone 5 mg tablet 5 mg PO Q6H PRN pain 5 Unknown History polyethylene glycol 3350 17 17 g PO DAILY bowel mobili ty 10/31/24 Unknown History gram/dose oral powder (Miralax) urea 15 gram oral powder packet 1 packet PO DAILY sodi um 10/31/24 10/31/24 History (Ure-Na) Allergy/AdvReac Type Severity Reaction Status Date / Time iodine AdvReac Severe Unknown Verified 08/16/24 15:23 lisinopril AdvReac Intermediate Cough Verified 08/16/24 15:23 Iodinated Contrast Media AdvReac Swelling Verified 08/16/24 15:23 (CONTRASTS) niacin AdvReac Upset Verified 08/16/24 15:23 Stomach Family History Brother CAD (coronary artery disease) Sister CAD (coronary artery disease) Father , Age 76 of [place] CAD (coronary artery disease) Myocardial infarction Mother , Age 93 No problems noted. 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) Social History Smoking Status: Never smoker Results Lab / Micro Data 11/01/24 05:37 11/01/24 05:37 Assessment & Plan Assessment/Plan (1) Physical debility: (2) Painful total knee replacement, left: QUALIFIERS: Encounter type: subsequent encounter Qualified Code(s): T84.84XD - Pain due to internal orthopedic prosthetic devices, implants and grafts, subsequent encounter; Z96.652 - Presence of left artificial knee joint (3) Hyperglycemia due to type 2 diabetes mellitus: QUALIFIERS: Diabetes mellitus 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
[2024-11-01 10:19] VITALS: PULSE 83
[2024-11-01] MEDS: Metoprolol(XL)Succ 25 MG Tablet PO (10:19)
[2024-11-01] MEDS: Senna/Docusate Sodium 1 Tablet 2 TABLET PO (10:19)
[2024-11-01] MEDS: Polyethylene Glycol 3350 17 GM PACKET PO (10:19)
[2024-11-01] MEDS: Cholecalciferol (VIT D3) 25 MCG TABLET (1,000 UNITS) PO (10:20)
[2024-11-01 14:02] VITALS: O2SAT 98
[2024-11-01 18:00] VITALS: BP 117/59; PULSE 82; RESP 16; TEMP 37.1; O2SAT 99
[2024-11-01 21:15] VITALS: PULSE 82; RESP 16; O2SAT 99
[2024-11-02 06:00] VITALS: BP 138/65; PULSE 79; RESP 16; TEMP 36.3; O2SAT 98
[2024-11-02] MEDS: metFORMIN (XR) 500 MG Tablet PO (08:23)
[2024-11-02 08:57] VITALS: BP 109/63; PULSE 83
[2024-11-02] MEDS: Metoprolol(XL)Succ 25 MG Tablet PO (08:57)
[2024-11-02] MEDS: Cholecalciferol (VIT D3) 25 MCG TABLET (1,000 UNITS) PO (08:58)
[2024-11-02] MEDS: Senna/Docusate Sodium 1 Tablet 2 TABLET PO ×2 (08:59→20:25)
--- NOTE | 2024-11-02 11:50 | PCM.RU.PYE ---
Admission Information Primary Diagnosis:: Physical debility secondary to left total knee replacement Status Changes from Prescreening?: No changes Identified Actual Problem List:: Skin Intergrity, Pain, ALteration in Cmfrt, Bladder Incontinence (No incontinence but does have urine retention), Bowel, Constipation, Alteration in Sleep, Mobility Impaired, Self Care Deficit, Alteration/ Air Exchange and Alteration-Leisure Activ. Potential Problem List:: DVT, Bleeding, Infection, UTI, Aspiration, Falls, Skin Integrity and Depression Risk of Complications DVT: SMITH Garcia and - (Aspirin 81 mg p.o. twice daily per orthopedics) Bleeding: Monitor Lab Values, Nursing to Teach Precautions for anti-coagulation therapy., Wound, if applicable, to be assessed every shift. and Stroke patients assessed for lethargy or change in status. Infection: Clinical Staff to Monitor for S/S of infection: and S/S of infection include fever, redness, warmth, etc. Urinary Tract Infection: Monitor for frequency, burning, discomfort, or incontinence. and Nursing will obtain urine sample for urinalysis and C&S when ordered. Aspiration: Clinical staff will monitor for coughing, drooling, congestion., Speech will evaluate swallowing and dsyphasia. and Nursing will monitor patient swallowing during meals. Falls: Patient will be evaluated for Fall Precautions and Patient will be placed on Fall Precautions as indicated per protocol. Skin Breakdown: Nursing will assess skin daily using assessment tool. and Nursing will place on Skin Breakdown Precautions as indicated. Pain: Clinical staff will assess patient's pain level per protocol., Medications will be given, if needed, and the pain level reassessed. and Other methods: Massage, distraction, decrease stimulus, etc. used PRN. Plan of Care Patient requires physician specializing in physical medicine and rehab oversight to provide close medical supervision of rehab issues including: Pain Management, Sleep Problems, Bowel and Bladder, Medical and co-morbidity Management, DVT prophylaxis, Rehabilitation Leadership and Coordination of treatment team Patient needs Physical Therapy: For a minimum of 1 hour and At least 5 out of 7 days Patient needs Physical Therapy to improve:: Mobility, Strengthening, Transfers, Stretching, ROM, Endurance, Stairs, Gait and Balance Patient needs Occupational Therapy: For a minimum of 1 hour and At least 5 out of 7 days Patient needs Occupational Therapy to improve ADL's incl.: Eating, Grooming, Bathing, Dressing, Toileting, Toilet transfers, Community Reintegration, Higher functioning activities, Household tasks, Adaptive Equipment, Splinting and Other activities as determined Patient requires 24/7 Rehabilitation Nursing for: Pain Issues, Identifying and preventing risk factors, Monitoring and reporting current medical conditions, Assisting with ambulation, transfer, and all ADL's, Teaching patients about disease process and medications, Family teaching, Providing safe environment, Bowel and Bladder Issues, Skin integrity and Medication Management Patient needs Polygraph Examiner/ Case Management for: Discharge Planning, Arranging Home Equipment or Services and Family Interventions Patient needs Dietary and Nutrition Services for: Adequate Nutrition, Nutritional Supplements and Nutritional Education Goals Goals Patient will remain: free from falls Patient will perform eating at: MOD I level of assist. Patient will perform bed mobility at: MOD I level of assist. Patient will complete transfers from bed to chair at: MOD I level of assist. Patient will ambulate: - (250 feet with wheeled walker at mod I on various surfaces) Patient will complete upper body dressing at: MOD I level of assist. Patient will complete lower body dressing at: MOD I level of assist. (Using adaptive equipment as needed to facilitate increased independence with self-care) Patient will complete toilet transfer at: MOD I level of assist. Patient will complete toileting at: MOD I level of assist. Patient will perform bathing at: MOD I level of assist. (He will complete upper body bathing independently and lower body bathing at mod I with adaptive equipment as needed) Patient will perform Tub/Shower transfer at: - (Supervision) Patient will complete grooming at: MOD I level of assist. (While standing at the sink) Patient will complete home management skills at: MOD I level of assist. Patient will achieve: - (14 steps with 1 handrail and least restrictive device at standby assist to allow access to his bedroom/full bath.) Patient will have pain level of: of 3 or less Patient's skin will: remain intact Patient will receive: adequate nutrition. Discharge Planning Pt Prognosis for Sig. Practical Improv. w/in Reasonable Time: Good Estimated Length of stay (days): 14 Anticipated D/C Destination: Home with Outpt Therapy Was Preadmission Assessment Accurate?: Yes
--- NOTE | 2024-11-02 12:02 | PN_ITS ---
Subjective Subjective Afebrile VSS -blood pressure has ranged from 109/63 to 136/65 since arrival on rehab. The heart rate has ranged from 78-83. Maintaining appropriate oxygen saturation on RA Oral intake - FOOD good FLUIDS good the record was reviewed and blood sugars are well-controlled with no hypoglycemia. No blood sugars greater than 160 since admission to rehab. Discussed with nursing - no problems that need addressed Reviewed the THERAPY notes Medication list reviewed. He only took 1 Oxy 5 mg yesterday AM and he took 5 mg this AM. C/O severe pain, 12/05, with flexing the knee today. He is c/o pain in the left thigh......this preceded the recent surgery. He has hyperalgesia with stroking the skin of the L thigh and with light touch. Some muscle spasm but, not severe. He denies shortness of breath, chest pain, lightheadedness, cephalgia, nausea/vomiting/abdominal pain and calf tenderness. Objective Data Objective Data Vital Signs: Vital Signs Temp Pulse Resp BP Pulse Ox O2 Del Method 97.4 F L 83 16 109/63 98 Room Air 11/02/24 06:00 11/02/24 08:57 11/02/24 06:00 11/02/24 08:57 11/02/24 06:00 11/02/24 09:10 Oxygen Delivery Method Room Air Weight: 136 lb 14.513 oz Body Mass Index (BMI) 22.1 Intake & Output: Intake and Output for Last 24 Hours 10/31/24 11/01/24 11/02/24 23:59 23:59 23:59 Intake Total 840 / 840 75 / 75 Output Total 550 / 550 900 / 900 695 / 695 Balance -550 / -550 -60 / -60 -620 / -620 Lab / Micro Data 11/01/24 05:37 11/01/24 05:37 Labs: Laboratory Results - last 24 hr 11/01/24 16:18: POC Glucose 159 H 11/01/24 21:26: POC Glucose 116 H 11/02/24 05:50: POC Glucose 121 H 11/02/24 11:10: POC Glucose 128 H Physical Exam Const alert, oriented x3 and no apparent distress Constitutional Narrative: Very pleasant and talkative. General Appearance: cooperative Neck supple and no JVD Resp normal respiratory effort, normal air movement and clear to auscultation bilaterally Resp Narrative: No conversational dyspnea. Using the incentive spirometer regularly. Had a mild cough yesterday but this has resolved with use of the IS. Effort and Inspection: Negative for tachypneic Cardio regular rate, regular rhythm, S1 normal heart sound, S2 normal heart sound, no murmurs, no rub and no gallops GI normal to inspection, nondistended, normoactive bowel sounds, soft to palpation and non-tender Extremity no calf tenderness Extremity Narrative: Trace edema of the left ankle. Skin Rashes: no rashes Assessment & Plan Assessment/Plan (1) Physical debility: (2) Painful total knee replacement, left: QUALIFIERS: Encounter type: subsequent encounter Qualified Code(s): T84.84XD - Pain due to internal orthopedic prosthetic devices, implants and grafts, subsequent encounter; Z96.652 - Presence of left artificial knee joint (3) Hyperglycemia due to type 2 diabetes mellitus: QUALIFIERS: Diabetes mellitus longterm insulin use: without longterm use Qualified Code(s): E11.65 - Type 2 diabetes mellitus with hyperglycemia (4) Urine retention: (5) Acute blood loss as cause of postoperative anemia: (6) Chronic hyponatremia: (7) Radicular pain: PLAN: Plan 1. Continue therapy 2. Discontinue Flexeril due to the anticholinergic side effects. Will start tizanidine 2 mg p.o. 3 times daily. 3. Neuropathy compounded pain cream to the left anterior thigh 3 times daily.......suspect there is a neuropathic component to the pain. 4. Voiding trial on Tuesday 5. BMP and HH on Tuesday. 6. I do not feel he has adequate pain relief and this will impair his ability to do therapy. Will start tramadol 50 mg p.o. every 8 hours and continue as needed oxycodone 5 mg for breakthrough pain only. Charges/Coding Visit Charges Inpatient E&M: 33747 [facility] Hosp L1
[2024-11-02] MEDS: Neuropathy Pain Cream Compound 60 CLICK TUBE TOPICAL ×2 (13:45→20:26)
[2024-11-02 18:00] VITALS: BP 130/55; PULSE 83; RESP 15; TEMP 36.7; O2SAT 98
[2024-11-02 19:45] VITALS: PULSE 83; RESP 15; O2SAT 98
[2024-11-03 06:00] VITALS: BP 139/67; PULSE 76; RESP 17; TEMP 36.7; O2SAT 99
[2024-11-03] MEDS: Neuropathy Pain Cream Compound 60 CLICK TUBE TOPICAL ×3 (08:25→22:20)
[2024-11-03] MEDS: metFORMIN (XR) 500 MG Tablet PO (08:29)
[2024-11-03 09:01] VITALS: O2SAT 99
[2024-11-03 10:37] VITALS: PULSE 88
[2024-11-03] MEDS: Cholecalciferol (VIT D3) 25 MCG TABLET (1,000 UNITS) PO (10:37)
[2024-11-03] MEDS: Polyethylene Glycol 3350 17 GM PACKET PO (10:37)
[2024-11-03] MEDS: Metoprolol(XL)Succ 25 MG Tablet PO (10:37)
[2024-11-03] MEDS: Senna/Docusate Sodium 1 Tablet 2 TABLET PO ×2 (10:40→22:20)
[2024-11-03 16:53] VITALS: BP 103/53; PULSE 74; RESP 16; TEMP 36.6; O2SAT 99
[2024-11-04 06:00] VITALS: BP 125/58; PULSE 72; RESP 16; TEMP 36.6; O2SAT 97; BMI 22.1
[2024-11-04] MEDS: Neuropathy Pain Cream Compound 60 CLICK TUBE TOPICAL ×3 (06:27→21:19)
[2024-11-04] MEDS: metFORMIN (XR) 500 MG Tablet PO (08:10)
[2024-11-04 08:11] VITALS: BP 125/58; PULSE 72
[2024-11-04] MEDS: Metoprolol(XL)Succ 25 MG Tablet PO (08:11)
[2024-11-04] MEDS: Cholecalciferol (VIT D3) 25 MCG TABLET (1,000 UNITS) PO (08:11)
[2024-11-04] MEDS: Polyethylene Glycol 3350 17 GM PACKET PO (08:12)
[2024-11-04 08:45] LABS: Hematocrit 32.7 % (40-54); Hemoglobin 11.0 g/dL (13.0-16.5)
[2024-11-04 09:15] LABS: Anion Gap 8 (5-15); BUN 11 mg/dL (4-19); BUN/Creat Ratio 20.4 RATIO (10-20); Calcium,Total 8.5 mg/dL (7.6-11.0); Carbon Dioxide 26.2 mmol/L (21.0-32.0); Chloride 96 mmol/L (98-108); Estimated Creatinine Clearance 64.69 ml/min (50-250); Glucose 241 mg/dL (70-99); Potassium 5.0 mmol/L (3.3-5.1)
[2024-11-04 17:52] VITALS: BP 128/70; PULSE 70; RESP 16; TEMP 36.8; O2SAT 97
[2024-11-04] MEDS: Senna/Docusate Sodium 1 Tablet 2 TABLET PO (21:19)
[2024-11-05] MEDS: Neuropathy Pain Cream Compound 60 CLICK TUBE TOPICAL ×3 (05:01→21:38)
[2024-11-05 06:00] VITALS: BP 133/67; PULSE 83; RESP 16; TEMP 36.8; O2SAT 98
--- NOTE | 2024-11-05 07:55 | PCM.PROGNOTE ---
Subjective Subjective Jas was seen on TEAM rounds today. His brother was present in the room for rounds and all questions were answered to their satisfaction. 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 The blood sugar record was reviewed and the blood sugars are under excellent control with no hypoglycemia. Ojeda catheter was discontinued yesterday a.m. The first postvoid residual was 156 but the postvoid residual today at 05 100 was 534. Last BM was 11/03/24 Discussed with nursing - no problems that need addressed Reviewed the THERAPY notes Medication list reviewed. Has not had to take any Oxy for breakthrough pain All recent lab was personally reviewed. Hemoglobin is stable at 11. Sodium yesterday was 130 with a potassium of 5.0. fluid restriction was decreased to 1500 cc daily but, if the I&O's are accurate he has not been drinking even 1500 cc daily. Objective Data Objective Data Vital Signs: Vital Signs Temp Pulse Resp BP Pulse Ox O2 Del Method 98.2 F 83 16 133/67 H 98 Room Air 11/05/24 06:00 11/05/24 06:00 11/05/24 06:00 11/05/24 06:00 11/05/24 06:00 11/05/24 06:00 Oxygen Delivery Method Room Air Weight: 136 lb 14.513 oz Body Mass Index (BMI) 22.1 Intake & Output: Intake and Output for Last 24 Hours 11/03/24 11/04/24 11/05/24 23:59 23:59 23:59 Intake Total 870 / 870 960 / 1160 200 / 200 Output Total 1974 / 1974 1600 / 1600 0 / 0 Balance -1105 / -1105 -640 / -440 200 / 200 Lab / Micro Data 11/04/24 08:30 11/04/24 08:30 Labs: Laboratory Results - last 24 hr 11/04/24 06:17: POC Glucose 107 H 11/04/24 08:30: Hgb 11.0 L, Hct 32.7 L, Sodium 130 L, Potassium 5.0, Chloride 96 L, Carbon Dioxide 26.2, Anion Gap 8, BUN 11, Creatinine 0.55 L, Estim Creat Clear Calc 64.69, Est GFR (MDRD) Non-Af 100, BUN/Creatinine Ratio 20.4 H, Glucose 241 H, Calcium 8.5 11/04/24 10:47: POC Glucose 148 H 11/04/24 17:21: POC Glucose 116 H 11/04/24 21:26: POC Glucose 150 H 11/05/24 07:06: POC Glucose 147 H Physical Exam Const alert, oriented x3 and no apparent distress Constitutional Narrative: Seems more fatigued today. General Appearance: cooperative Resp normal respiratory effort, normal air movement and clear to auscultation bilaterally Effort and Inspection: Negative for tachypneic Cardio regular rate, regular rhythm, no murmurs, no rub and no gallops Cardio Narrative: No ectopy GI normal to inspection, nondistended, normoactive bowel sounds, soft to palpation and non-tender Extremity no calf tenderness Extremity Narrative: Mild pitting edema of the left ankle. No pain in the calf with compression. 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 Continue therapy 2. Change Accu-Cheks to twice daily. 3. Increase Flomax to 0.8 mg nightly 4. Check urine osmolality, serum osmolality and urine sodium this morning. 5. Change the scheduled Tramadol to 25 mg BID Continue PRN Oxy for breakthrough pain. Change tizanidine to 2 mg p.o. every 8 hours as needed muscle spasm. Continue the neuropathy cream TID to the left anterior thigh. 6. I encouraged him to increase fluids........would drink the Ensure because it has protein in it for healing and this can increase the solute load rather than increasing free water. 7. Recheck BMP on Tuesday or . Charges/Coding Visit Charges Inpatient E&M: 75285 Subs Hosp L2
[2024-11-05] MEDS: Senna/Docusate Sodium 1 Tablet 2 TABLET PO (08:21)
[2024-11-05] MEDS: Polyethylene Glycol 3350 17 GM PACKET PO (08:21)
[2024-11-05] MEDS: Cholecalciferol (VIT D3) 25 MCG TABLET (1,000 UNITS) PO (08:21)
[2024-11-05] MEDS: metFORMIN (XR) 500 MG Tablet PO (08:21)
[2024-11-05 09:14] VITALS: PULSE 83
[2024-11-05] MEDS: Metoprolol(XL)Succ 25 MG Tablet PO (09:14)
[2024-11-05 10:08] LABS: Osmolality, Serum 285 mOsm/KG (280-301)
[2024-11-05 11:48] LABS: Osmolality, Urine 515 mOsm/KG
--- NOTE | 2024-11-05 13:01 | CASEMGMT ---
Social Work IDT met with patient and brother for Team meeting. Discussed patient's progress in PT/OT/SN/MD. Educated to YUMIKO Pinon CM insurance with [employer] 11/13 and continued stay is not guaranteed with each review. YOVANNY confirmed although pt lives alone, dtr is coming into town to stay with pt on 11/12. Offered therapy training with dtr and plan for DC next week after continued progress. Dtr will remain in town for about 2 weeks. Pt and brother want to ensure pt has as much independence prior to DC home. YOVANNY confirmed pt's preference is [facility] at [place]. Will ReTeam next week and assist with DC plans. Devorah Villasenor [employer]OOKB[employer] APPRENTICE EDUCATION COURSES SALES REPRESENTATIVE
[2024-11-05 18:00] VITALS: BP 137/68; PULSE 84; RESP 16; TEMP 36.9; O2SAT 99
[2024-11-06] MEDS: Neuropathy Pain Cream Compound 60 CLICK TUBE TOPICAL ×3 (05:31→22:30)
[2024-11-06 06:00] VITALS: BP 130/66; PULSE 77; RESP 18; TEMP 36.3; O2SAT 94
[2024-11-06 08:02] VITALS: PULSE 77
[2024-11-06] MEDS: Cholecalciferol (VIT D3) 25 MCG TABLET (1,000 UNITS) PO (08:02)
[2024-11-06] MEDS: Metoprolol(XL)Succ 25 MG Tablet PO (08:02)
[2024-11-06] MEDS: metFORMIN (XR) 500 MG Tablet PO (08:03)
[2024-11-06] MEDS: Polyethylene Glycol 3350 17 GM PACKET PO (08:03)
--- NOTE | 2024-11-06 11:20 | PCM.PROGNOTE ---
Subjective Subjective Afebrile VSS -blood pressure over the past 24 hours has ranged from 130/66 to 137/68. Heart rate is within normal limits. Maintaining appropriate oxygen saturation on RA Oral intake - FOOD eating 75 to 100% of his meals. FLUIDS poor. Despite encouraging him to increase his fluid intake to 1500 cc daily he only took 920 yesterday. On 11/04/2024 his intake was 9:16 AM on 11/03/2024 it was 878. The blood sugar record was reviewed and blood sugars are well-controlled. He is now on twice daily Accu-Cheks. The initial PVR after discontinuing the Ojeda catheter yesterday was 534 but the 2 PVR since then have been 55 and 68. Discussed with nursing -nursing reports he did not sleep well last night due to pain and using the bathroom frequently. Tramadol was changed to 25 mg twice daily yesterday because he was complaining of fatigue. He had 1 dose of oxycodone last night at 2:39 AM. Reviewed the THERAPY notes Medication list reviewed. Urine osmolality yesterday was 515 with a urine sodium of 50. Serum osmolality was normal at 285 and these results are consistent with SIADH. He is c/o nocturia and is trying to attribute this to Flomax. I told him Flomax helps to improve flow and improve nocturia.....it does not cause nocturia. Despite continued encouragement to increase his fluid intake he continues to have poor fluid intake. Denies dysuria. Denies calf pain. The Left thigh pain is better with the arthritis cream. Denies CP/SOB. Objective Data Objective Data Vital Signs: Vital Signs Temp Pulse Resp BP Pulse Ox O2 Del Method 97.4 F L 77 18 130/66 H 94 Room Air 11/06/24 06:00 11/06/24 08:02 11/06/24 06:00 11/06/24 06:00 11/06/24 06:00 11/06/24 09:20 Oxygen Delivery Method Room Air Weight: 136 lb 14.513 oz Body Mass Index (BMI) 22.1 Intake & Output: Intake and Output for Last 24 Hours 11/04/24 11/05/24 11/06/24 23:59 23:59 23:59 Intake Total 960 / 1160 920 / 920 390 / 390 Output Total 1600 / 1600 650 / 650 650 / 650 Balance -640 / -440 270 / 270 -260 / -260 Lab / Micro Data 11/04/24 08:30 11/04/24 08:30 Labs: Laboratory Results - last 24 hr 11/05/24 11:10: Urine Osmolality 515, Ur Random Sodium 50 11/05/24 16:33: POC Glucose 112 H 11/06/24 05:39: POC Glucose 129 H Physical Exam Const alert, oriented x3 and no apparent distress Resp normal respiratory effort, normal air movement and clear to auscultation bilaterally Resp Narrative: No conversational dyspnea. Effort and Inspection: Negative for tachypneic Cardio regular rate, regular rhythm, no murmurs, no rub and no gallops Cardio Narrative: No ectopy GI normal to inspection, nondistended, normoactive bowel sounds, soft to palpation and non-tender Extremity no calf tenderness Extremity Narrative: Mild pitting edema of the left ankle. No pain in the calf with compression. Skin Rashes: no rashes Assessment & Plan Assessment/Plan (1) Physical debility: (2) Painful total knee replacement, left: QUALIFIERS: Encounter type: subsequent encounter Qualified Code(s): T84.84XD - Pain due to internal orthopedic prosthetic devices, implants and grafts, subsequent encounter; Z96.652 - Presence of left artificial knee joint (3) Hyperglycemia due to type 2 diabetes mellitus: QUALIFIERS: Diabetes mellitus residential insulin use: without residential use Qualified Code(s): E11.65 - Type 2 diabetes mellitus with hyperglycemia (4) Urine retention: (5) Acute blood loss as cause of postoperative anemia: (6) Chronic hyponatremia: (7) Radicular pain: PLAN: Plan 1. Continue therapy 2. He had to have Oxy last night in the middle of the night. He may be getting up frequently because he awakens in pain. Will add a scheduled dose of Tramadol at HS. 3. check a UA since he had a Ojeda catheter in. He is AF and denies dysuria. Charges/Coding Visit Charges Inpatient E&M: 37549 Subs Hosp L1
[2024-11-06 18:00] VITALS: BP 139/50; PULSE 68; RESP 16; TEMP 36.6; O2SAT 95
[2024-11-06] MEDS: Senna/Docusate Sodium 1 Tablet 2 TABLET PO (22:31)
[2024-11-07 06:00] VITALS: BP 131/69; PULSE 77; RESP 16; TEMP 36.3; BMI 21.8
[2024-11-07] MEDS: Neuropathy Pain Cream Compound 60 CLICK TUBE TOPICAL ×3 (06:40→22:07)
[2024-11-07 08:21] VITALS: BP 131/69; PULSE 77
[2024-11-07] MEDS: metFORMIN (XR) 500 MG Tablet PO (08:21)
[2024-11-07] MEDS: Metoprolol(XL)Succ 25 MG Tablet PO (08:21)
[2024-11-07] MEDS: Cholecalciferol (VIT D3) 25 MCG TABLET (1,000 UNITS) PO (08:21)
[2024-11-07] MEDS: Senna/Docusate Sodium 1 Tablet 2 TABLET PO ×2 (08:23→22:05)
--- NOTE | 2024-11-07 09:48 | VDLE_ITS ---
Reason For Study Reason For Study: Left leg pain RIGHT LEFT CFV is compressible, spontaneous, phasic, competent GSV is normal. and demonstrates normal augmentation. CFV is compressible, spontaneous, phasic, competent, Procedure and demonstrates normal augmentation. This is a venous duplex using B-mode, color flow and FV is compressible, spontaneous, phasic, competent and spectral Doppler. demonstrates normal augmentation. Exam performed portable in patient room. POP V is compressible, spontaneous, phasic, competent A preliminary report was called and/or faxed to and demonstrates normal augmentation. Mario. T/P Trunk is compressible. PTV is compressible. Acute deep vein thrombosis is noted in the Vilma V and Soleus V. It is dilated and NONCOMPRESSIBLE. VL/Venous Duplex US, Unilateral Interpretation Summary Acute deep vein thrombosis noted in the left peroneal vein, soleus vein. Ordering Physician: Ria Martin Referring Physician: Jb Merlos M.D. Performed By: Gertrudis Cruz RVT
--- NOTE | 2024-11-07 11:45 | PN_ITS ---
Subjective Subjective Afebrile Vital signs stable Blood sugars are well-controlled with no hypoglycemia. Good appetite and eating well but fluid intake is still poor despite much encouragement to increase his fluids. 70 cc yesterday and then 200 overnight. Urinates small amounts ......more likely than not due to poor fluid intake. Last 2 PVR's were less than 100 He took 1 dose of oxycodone 5 mg yesterday at approximately 2:30 AM. Took 1 dose this morning at 830. He had tramadol 50 mg at at bedtime last night. Denies burning or painful urination. Complaining of urinary frequency but, D/W nursing and he only had 2 voids last night. He goes a small amount. Denies CP, SOB, cough, N/V/abd pain. He is c/o Left calf pain last night........he denies at this time but, he had an Oxycodone this AM in addition to Tramadol. Did not offer that he had L thigh pain but, when I asked about it he c/o pain.......he has not been complaining of this to nursing or therapy. Objective Data Objective Data Vital Signs: Vital Signs Temp Pulse Resp BP Pulse Ox O2 Del Method 97.3 F L 77 16 131/69 H 95 Room Air 11/07/24 06:00 11/07/24 08:21 11/07/24 06:00 11/07/24 08:21 11/06/24 18:00 11/07/24 09:28 Oxygen Delivery Method Room Air Weight: 135 lb 12.876 oz Body Mass Index (BMI) 21.8 Intake & Output: Intake and Output for Last 24 Hours 11/05/24 11/06/24 11/07/24 23:59 23:59 23:59 Intake Total 920 / 920 1070 / 1070 200 / 200 Output Total 650 / 650 1050 / 1050 600 / 600 Balance 270 / 270 20 / 20 -400 / -400 Lab / Micro Data 11/04/24 08:30 11/04/24 08:30 Labs: Laboratory Results - last 24 hr 11/06/24 17:12: POC Glucose 121 H 11/07/24 06:57: POC Glucose 128 H Physical Exam Const alert and no apparent distress General Appearance: cooperative Resp clear to auscultation bilaterally Cardio regular rate and regular rhythm GI normal to inspection, nondistended, normoactive bowel sounds, soft to palpation and non-tender Extremity Extremity Narrative: He is c/o left calf pain with compression of the calf. The left ankle edema and the edema of the knee are much improved since admission. Incision is intact with no dehiscence. No erythem and no DC from the incision. It is closed with dermabond. Assessment & Plan Assessment/Plan (1) Physical debility: (2) Painful total knee replacement, left: QUALIFIERS: Encounter type: subsequent encounter Qualified Code(s): T84.84XD - Pain due to internal orthopedic prosthetic devices, implants and grafts, subsequent encounter; Z96.652 - Presence of left artificial knee joint (3) Hyperglycemia due to type 2 diabetes mellitus: QUALIFIERS: Diabetes mellitus assisted insulin use: without assisted use Qualified Code(s): E11.65 - Type 2 diabetes mellitus with hyperglycemia (4) Urine retention: (5) Acute blood loss as cause of postoperative anemia: (6) Chronic hyponatremia: (7) Radicular pain: (8) Pain of left calf: (9) Left leg DVT: PLAN: Plan 1. Continue therapy 2. Venous US of the LLE today. Has been taking ASA 81 mg BID for DVT prophylaxis. He has a hx of DVT in the past. 3. Check a UA today 4. Check 3 more PVR's 5. Continue the current pain regimen. 6. Lab ordered for tomorrow. Charges/Coding Visit Charges Inpatient E&M: 78483 Subs Hosp L2
[2024-11-07] MEDS: APIXABAN 5 MG TABLET 10 MG PO ×2 (12:15→22:06)
[2024-11-07 12:24] LABS: Mucous, Urine 0 SEEN /hpf (<or=2+); Red Blood Cells-Urine 0 SEEN /hpf (0-5)
[2024-11-07 12:33] LABS: Color, Urine Yellow (Yellow); Glucose, Dipstick Normal (Normal); Ketone-Dipstick Negative (Negative); Leukocyte Esterase-Dipstick 500 /ul (Negative); Nitrite-Dipstick Positive (Negative); Occult Blood-Urine 50 /ul (Negative); Protein-Dipstick 30 mg/dl (Negative); Specific Gravity, Urine 1.010 (1.002-1.030); Urine Bilirubin Dipstick Negative (Negative)
[2024-11-07 12:41] LABS: Transitional Epithelial - Ur 0-5 SEEN /hpf (0-5)
[2024-11-07 12:42] LABS: Squamous Epithelial Cells - UA 0-5 SEEN /hpf (0-5)
[2024-11-07 17:05] VITALS: BP 117/58; PULSE 77; RESP 16; TEMP 36.3; O2SAT 100
[2024-11-07 22:00] VITALS: PULSE 77; RESP 16; O2SAT 100
--- NOTE | 2024-11-08 04:54 | NURSING ---
am medication given at this time d/t pt reports that his pain a 8/10 on the pain scale to his knee and calf. will give oxyir later if pain is still not controlled
[2024-11-08 05:03] VITALS: BP 143/69; PULSE 72; RESP 18; TEMP 36.8; O2SAT 97
[2024-11-08 06:22] LABS: Anion Gap 9 (5-15); BUN 14 mg/dL (4-19); BUN/Creat Ratio 25.5 RATIO (10-20); Calcium,Total 8.6 mg/dL (7.6-11.0); Carbon Dioxide 25.7 mmol/L (21.0-32.0); Chloride 97 mmol/L (98-108); Estimated Creatinine Clearance 64.17 ml/min (50-250); Glucose 134 mg/dL (70-99); Potassium 4.4 mmol/L (3.3-5.1)
[2024-11-08] MEDS: Neuropathy Pain Cream Compound 60 CLICK TUBE TOPICAL ×3 (07:14→22:20)
[2024-11-08] MEDS: Senna/Docusate Sodium 1 Tablet 2 TABLET PO ×2 (09:06→22:22)
[2024-11-08] MEDS: Cholecalciferol (VIT D3) 25 MCG TABLET (1,000 UNITS) PO (09:07)
[2024-11-08] MEDS: APIXABAN 5 MG TABLET 10 MG PO ×2 (09:07→22:21)
[2024-11-08] MEDS: metFORMIN (XR) 500 MG Tablet PO (09:07)
[2024-11-08 09:08] VITALS: BP 130/66; PULSE 77
[2024-11-08] MEDS: Metoprolol(XL)Succ 25 MG Tablet PO (09:08)
--- NOTE | 2024-11-08 10:40 | PCM.PROGNOTE ---
Subjective Subjective Afebrile VSS - Maintaining appropriate oxygen saturation on RA Oral intake - FOOD good FLUIDS he did better with fluids yesterday and took 1615 (fluid restriction is 1500) but prior to yesterday he was taking generally less than 1 L a day. The last 3 postvoid residuals have ranged from 1-142. Last bowel movement was yesterday. Discussed with nursing - He is very Anxious and perseverates. He also has short term memory problems and we have to repeat things several times. Reviewed the THERAPY notes Medication list reviewed. I observed him walking in the grant today and his pace is much better. He does not appear to be in pain ambulating. Pain seems to be adequately controlled. He is on tramadol 25 mg twice daily and 50 mg at bedtime. He has been taking oxycodone 5 mg in the a.m.......in anticipation of pain? He appears to have good energy today. Nursing tells me that he only was up 2 X's last night to urinate. He is hesitant to do things for himself and needs a lot of encouragement from nursing to do what he can. No CP, SOB, cough, hemoptysis, palpitations. C/O pain in the left thigh and worried that the clot is propagating but, the pain in the left thigh is not new and has not changed since admission. He is not c/o fatigue today. He forgot that he is on scheduled Tramadol for pain and has been asking for OXY because he wanted to prevent pain with therapy. He tells me that he does not like taking OXY. I reminded him that he is on Tramdol 25 mg in the AM and afternoon and 50 mg at HS. Objective Data Objective Data Vital Signs: Vital Signs Temp Pulse Resp BP Pulse Ox O2 Del Method 98.2 F 77 18 130/66 H 97 Room Air 11/08/24 05:03 11/08/24 09:08 11/08/24 05:03 11/08/24 09:08 11/08/24 05:03 11/08/24 05:03 Oxygen Delivery Method Room Air Weight: 135 lb 12.876 oz Body Mass Index (BMI) 21.8 Intake & Output: Intake and Output for Last 24 Hours 11/06/24 11/07/24 11/08/24 23:59 23:59 23:59 Intake Total 1070 / 1070 1615 / 1615 420 / 420 Output Total 1050 / 1050 2250 / 2250 1150 / 1150 Balance -635 / -635 -730 / -730 Lab / Micro Data 11/04/24 08:30 11/08/24 05:34 Labs: Laboratory Results - last 24 hr 11/07/24 12:06: Urine Color Yellow, Urine Clarity Sl. Cloudy, Urine pH 7.0, Ur Specific Dexter 1.010, Urine Protein 30 H, Urine Glucose (UA) Normal, Urine Ketones Negative, Urine Occult Blood 50 H, Urine Nitrite Positive H, Urine Bilirubin Negative, Urine Urobilinogen Normal, Ur Leukocyte Esterase 500 H, Urine RBC 0 SEEN, Urine WBC 25-50 SEEN, Ur Squamous Epith Cells 0-5 SEEN, Ur Transition Epith Cell 0-5 SEEN, Urine Bacteria 3+, Urine Mucus 0 SEEN 11/07/24 16:18: POC Glucose 141 H 11/08/24 05:34: Sodium 132 L, Potassium 4.4, Chloride 97 L, Carbon Dioxide 25.7, Anion Gap 9, BUN 14, Creatinine 0.57 L, Estim Creat Clear Calc 64.17, Est GFR (MDRD) Non-Af 99, BUN/Creatinine Ratio 25.5 H, Glucose 134 H, Calcium 8.6 11/08/24 06:38: POC Glucose 133 H Radiography Diagnostic Testing: Radiology Impression Venous Doppler Study 11/07/24 09:48 Interpretation Summary Acute deep vein thrombosis noted in the left peroneal vein, soleus vein. Ordering Physician: Ria Martin Referring Physician: Jb Merlos M.D. Performed By: Gertrudis Cruz RVT Physical Exam Const alert, oriented x3 and no apparent distress Constitutional Narrative: sitting in the recliner at the bedside. He is MOD I in his room now. Observed him ambulating from 1 side of the room to the other and then backing up to the recliner to sit. No LOB and very steady. Resp normal respiratory effort, normal air movement and clear to auscultation bilaterally Effort and Inspection: Negative for tachypneic Cardio regular rate, regular rhythm and no gallops Cardio Narrative: No ectopy GI normal to inspection, nondistended, normoactive bowel sounds, soft to palpation and non-tender Skin Skin Narrative: the incision is intact with Dermabond. No DC from the incision. there is some reddish/brown discoloration of the medial L knee. the entire knee is warm to the touch but, this is not new. The swelling is decreasing but, there is still significant swelling. General Skin Exam: no breakdown Assessment & Plan Assessment/Plan (1) Physical debility: (2) Painful total knee replacement, left: QUALIFIERS: Encounter type: subsequent encounter Qualified Code(s): T84.84XD - Pain due to internal orthopedic prosthetic devices, implants and grafts, subsequent encounter; Z96.652 - Presence of left artificial knee joint (3) Hyperglycemia due to type 2 diabetes mellitus: QUALIFIERS: Diabetes mellitus long term acute care registered nurse insulin use: without penitentiary use Qualified Code(s): E11.65 - Type 2 diabetes mellitus with hyperglycemia (4) Urine retention: PLAN: Resolved with increase in the Flomax to 0.8 mg. 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 Continue therapy 2. Add BuSpar 5 mg p.o. twice daily to the drug regimen for anxiety. Continue Lexapro 10 mg daily. 3. In light of the UTI and now possible cellulitis of the Left medial knee will change the antibiotic to Levaquin until the urine culture results are available. Re-examine the knee in the AM. 4. Continue loading doses of Eliquis for DVT of the left lower extremity involving the soleus and peroneal veins. 5. The blood sugars are under excellent control with no hypoglycemia and no blood sugars over 150. Will make Accu-Cheks as needed. 6. CBC with diff in the AM, ESR and CRP in the AM. 7. hold Tylenol to see if he will get a fever. If he has a fever of 100 ?F or higher will obtain blood cultures. Charges/Coding Visit Charges Inpatient E&M: 57727 Subs Hosp L1
[2024-11-08 17:48] VITALS: BP 154/69; PULSE 79; RESP 17; TEMP 37.2; O2SAT 100
[2024-11-08 22:00] VITALS: PULSE 79; RESP 17; O2SAT 100
[2024-11-09 06:00] VITALS: BP 124/69; PULSE 74; RESP 16; TEMP 36.8; BMI 21.4
[2024-11-09] MEDS: metFORMIN (XR) 500 MG Tablet PO (08:31)
[2024-11-09] MEDS: Senna/Docusate Sodium 1 Tablet 2 TABLET PO ×2 (08:31→21:53)
[2024-11-09] MEDS: Neuropathy Pain Cream Compound 60 CLICK TUBE TOPICAL ×3 (08:32→21:55)
[2024-11-09] MEDS: APIXABAN 5 MG TABLET 10 MG PO ×2 (08:32→21:55)
[2024-11-09] MEDS: Cholecalciferol (VIT D3) 25 MCG TABLET (1,000 UNITS) PO (08:32)
[2024-11-09 08:33] VITALS: PULSE 78
[2024-11-09] MEDS: Metoprolol(XL)Succ 25 MG Tablet PO (08:33)
[2024-11-09 08:34] VITALS: BP 120/58; PULSE 78
--- NOTE | 2024-11-09 08:56 | PCM.PROGNOTE ---
Subjective Subjective Afebrile VSS - Maintaining appropriate oxygen saturation on RA Oral intake - FOOD good FLUIDS fluid intake yesterday was 1270. Fluid balance was -280 yesterday and overnight he was -540. Discussed with nursing - no problems that need addressed Reviewed the THERAPY notes Medication list reviewed. Acetaminophen was placed on hold yesterday morning to see if he would have a fever and he has been afebrile. Urine culture with greater than 100,000 colonies of E. coli. Multiple drug resistance including ampicillin, ceftriaxone, ciprofloxacin, levofloxacin and intermediate susceptibility to ampicillin/sulbactam. It is sensitive to nitrofurantoin and Bactrim. He did not c/o urinary frequency, dysuria or poor sleep today. Not c/o calf pain either. NO SOB, CP, palpitations, N/V/abd pain. Had a BM today and took a shower....which made him feel good. Lab drawn this morning was personally reviewed. White blood cell count is within normal limits at 6.7. Neutrophils are 76.5% and he has 3.3% immature granulocytes. Hemoglobin is stable at 10.9. Platelets are within normal limits. ESR is mildly elevated at 25, given his age and history of osteoarthritis this is likely unremarkable. CRP is still pending.Has not had any Oxy since yesterday AM. Stool this morning is Hemoccult negative. Objective Data Objective Data Vital Signs: Vital Signs Temp Pulse Resp BP Pulse Ox O2 Del Method 98.3 F 78 16 120/58 L 100 Room Air 11/09/24 06:00 11/09/24 08:34 11/09/24 06:00 11/09/24 08:34 11/08/24 22:00 11/09/24 06:00 Oxygen Delivery Method Room Air Weight: 133 lb 6.075 oz Body Mass Index (BMI) 21.4 Intake & Output: Intake and Output for Last 24 Hours 11/07/24 11/08/24 11/09/24 23:59 23:59 23:59 Intake Total 1615 / 1615 1270 / 1270 60 / 60 Output Total 2250 / 2250 1550 / 1850 600 / 600 Balance -635 / -635 -280 / -580 -540 / -540 Lab / Micro Data 11/09/24 08:56 11/08/24 05:34 Micro: Microbiology 11/07/24 12:44 Urine, Clean Catch Urine Culture - Final Escherichia coli Physical Exam Const alert, oriented x3 and no apparent distress General Appearance: cooperative Resp clear to auscultation bilaterally Cardio regular rate, regular rhythm and no gallops GI normal to inspection, nondistended, normoactive bowel sounds and soft to palpation Extremity Extremity Narrative: Mild calf tenderness on the left with compression. Persistent mild pitting edema of the left ankle. Bruising L medial ankle......dependent from the knee surgery. Skin Skin Narrative: The L knee is less warm to touch today. the redness of the medial knee actually is less today and although it is still warm to the touch it is less so than yesterday. Swelling seems less today. Psych Psych Narrative: Less anxious, less perseveration. Tell me that he slept well last night. 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 Stool is heme negative. 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 (9) Cellulitis: QUALIFIERS: Site of cellulitis: extremity Site of cellulitis of extremity: lower extremity Laterality: left Qualified Code(s): L03.116 - Cellulitis of left lower limb (10) UTI (urinary tract infection) due to urinary indwelling catheter: QUALIFIERS: Indwelling urinary catheter type: indwelling urethral catheter Encounter type: initial encounter Qualified Code(s): T83.511A - Infection and inflammatory reaction due to indwelling urethral catheter, initial encounter; N39.0 - Urinary tract infection, site not specified PLAN: Plan 1. Continue therapy 2. Discontinue Levaquin and start Bactrim DS 1 p.o. twice daily. Will need to check a BMP Tuesday.....due to the interaction between Cozaar and Bactrim. 3. Restart acetaminophen but make it as needed for pain. 4. Continue tramadol 25 mg twice daily and 50 mg at bedtime. 5. Recheck a BMP and CBC on Tuesday 6. Continue Eliquis 7. Check a PSA The E. Coli is not ESBL but, it is R to ampicillin, Rocephin and FQ's. He denies hx of frequent UTI's. This is usually what I see in patients with hx of UTI's. He has BPH and he retains urine. We had to go up on the Flomax to 0.8mg. I recommended he follow up with a urologist soon after DC from rehab. Will treat for 7 days with Bactrim......he had 2 days of Macrobid and the E. Coli is sensitive to Macrobid.......the antibiotic was changed so that we could treat UTI and cellulitis of the knee with 1 drug. Charges/Coding Visit Charges Inpatient E&M: 52495 [facility] Hosp L1
[2024-11-09 09:24] LABS: Hematocrit 32.9 % (40-54); Hemoglobin 10.9 g/dL (13.0-16.5); Immature Granulocytes Count 0.220 X10^3/uL (0.0-0.0); Mean Corp Hgb Conc 33.1 g/dL (32-36); Mean Corpuscular Volume 89.2 fL (80-94); Mean Platelet Vol. 8.1 fl (6.2-12.0); NRBC Flagged by Analyzer 0 % (0-5); POSITIVE DIFFERENTIAL YES; Platelet Count 341 K/mm3 (150-450); RBC Distribution Width CV 13.6 % (11.6-14.6); RBC Distribution Width SD 44.5 fl (35.1-43.9); Red Blood Count 3.69 M/mm3 (4.6-6.2); White Blood Count 6.7 K/mm3 (4.4-11.0)
[2024-11-09 10:11] LABS: CRP 28.80 mg/L (0.0-3.0)
[2024-11-09 12:23] LABS: PSA,Total - Annual Screen 7.27 ng/mL (0.02-4.00)
--- NOTE | 2024-11-09 16:38 | CASEMGMT ---
Social Work Pt requesting to speak with SW. Pt does not feel he is ready for discharge as there are some new medical issues that have come up. Pt would like additional time on unit. YOVANNY explained that insurance update is early next week, and that staff will provide clinicals and also let insurance know that pt would like to continue stay. [place] in admissions updated. Pt also requesting written information on where to get DME. Pt interested in a 3 in 1 commode and shower chair at time of discharge. YOVANNY will follow up and provide needed information to pt. DAWOOD Bailey
[2024-11-09 18:00] VITALS: BP 116/63; PULSE 84; RESP 17; TEMP 37.2; O2SAT 95
[2024-11-09] MEDS: Smz/Tmp Ds Tablet 1 TABLET PO (18:27)
[2024-11-09 21:50] VITALS: PULSE 84; RESP 17; O2SAT 95
[2024-11-10 06:00] VITALS: BP 132/61; PULSE 77; RESP 18; TEMP 37.1; O2SAT 98
[2024-11-10] MEDS: Neuropathy Pain Cream Compound 60 CLICK TUBE TOPICAL ×3 (06:48→22:20)
[2024-11-10] MEDS: metFORMIN (XR) 500 MG Tablet PO (08:23)
[2024-11-10] MEDS: Senna/Docusate Sodium 1 Tablet 2 TABLET PO ×2 (08:23→22:20)
[2024-11-10] MEDS: Smz/Tmp Ds Tablet 1 TABLET PO ×2 (08:23→16:38)
[2024-11-10] MEDS: APIXABAN 5 MG TABLET 10 MG PO ×2 (08:23→22:19)
[2024-11-10 08:24] VITALS: BP 132/61; PULSE 77
[2024-11-10] MEDS: Metoprolol(XL)Succ 25 MG Tablet PO (08:24)
[2024-11-10] MEDS: Cholecalciferol (VIT D3) 25 MCG TABLET (1,000 UNITS) PO (08:24)
[2024-11-10 10:00] VITALS: PULSE 77; RESP 16; O2SAT 98
[2024-11-10 18:00] VITALS: BP 138/60; PULSE 81; RESP 16; TEMP 37.2; O2SAT 98
[2024-11-10 22:28] VITALS: BP 139/63; PULSE 74; RESP 17; TEMP 36.8; O2SAT 98
[2024-11-11 05:04] VITALS: BMI 21.7
[2024-11-11 05:06] VITALS: BP 129/61; PULSE 70; RESP 16; TEMP 36.9; O2SAT 99
[2024-11-11] MEDS: Neuropathy Pain Cream Compound 60 CLICK TUBE TOPICAL ×3 (05:20→21:42)
[2024-11-11] MEDS: Smz/Tmp Ds Tablet 1 TABLET PO ×2 (08:45→18:19)
[2024-11-11] MEDS: metFORMIN (XR) 500 MG Tablet PO (08:45)
[2024-11-11] MEDS: APIXABAN 5 MG TABLET 10 MG PO ×2 (08:46→21:35)
[2024-11-11] MEDS: Senna/Docusate Sodium 1 Tablet 2 TABLET PO ×2 (08:47→21:39)
[2024-11-11 08:48] VITALS: BP 129/61; PULSE 70
[2024-11-11] MEDS: Metoprolol(XL)Succ 25 MG Tablet PO (08:48)
[2024-11-11] MEDS: Cholecalciferol (VIT D3) 25 MCG TABLET (1,000 UNITS) PO (08:48)
[2024-11-11 10:00] VITALS: PULSE 70; RESP 17; O2SAT 99
[2024-11-11 17:23] VITALS: BP 106/62; PULSE 52; RESP 17; TEMP 36.9; O2SAT 99
[2024-11-12 06:09] LABS: Hematocrit 34.2 % (40-54); Hemoglobin 11.2 g/dL (13.0-16.5); Immature Granulocytes Count 0.460 X10^3/uL (0.0-0.0); Mean Corp Hgb Conc 32.7 g/dL (32-36); Mean Corpuscular Volume 90.7 fL (80-94); Mean Platelet Vol. 8.1 fl (6.2-12.0); NRBC Flagged by Analyzer 0 % (0-5); Platelet Count 434 K/mm3 (150-450); RBC Distribution Width CV 14.0 % (11.6-14.6); RBC Distribution Width SD 45.5 fl (35.1-43.9); Red Blood Count 3.77 M/mm3 (4.6-6.2); White Blood Count 10.9 K/mm3 (4.4-11.0)
[2024-11-12 06:33] LABS: Anion Gap 9 (5-15); BUN 23 mg/dL (4-19); BUN/Creat Ratio 34.5 RATIO (10-20); Calcium,Total 8.7 mg/dL (7.6-11.0); Carbon Dioxide 25.4 mmol/L (21.0-32.0); Chloride 98 mmol/L (98-108); Estimated Creatinine Clearance 64.06 ml/min (50-250); Glucose 115 mg/dL (70-99); Potassium 4.6 mmol/L (3.3-5.1)
[2024-11-12] MEDS: Neuropathy Pain Cream Compound 60 CLICK TUBE TOPICAL ×3 (06:36→22:41)
[2024-11-12 08:03] VITALS: BP 111/47; PULSE 84
[2024-11-12] MEDS: Smz/Tmp Ds Tablet 1 TABLET PO ×2 (08:03→16:42)
[2024-11-12] MEDS: Cholecalciferol (VIT D3) 25 MCG TABLET (1,000 UNITS) PO (08:03)
[2024-11-12] MEDS: APIXABAN 5 MG TABLET 10 MG PO ×2 (08:03→22:42)
[2024-11-12] MEDS: Metoprolol(XL)Succ 25 MG Tablet PO (08:03)
[2024-11-12] MEDS: metFORMIN (XR) 500 MG Tablet PO (08:04)
[2024-11-12] MEDS: Senna/Docusate Sodium 1 Tablet 2 TABLET PO ×2 (08:05→22:43)
--- NOTE | 2024-11-12 08:59 | PN_ITS ---
Subjective Subjective Has received 6 of 14 doses of Bactrim to treat UTI and cellulitis of the left knee Afebrile VSS - Maintaining appropriate oxygen saturation on RA Oral intake - FOOD good FLUIDS mostly poor despite telling him to increase fluids. He is on fluid restriction of 1500 cc/day but, never gets close to this. Discussed with nursing - no problems that need addressed Reviewed the THERAPY notes Medication list reviewed. Eliquis 5 mg BID will start on 11/14/24.......he is currently receiving 10mg BID for loading. Has not taken any tizanidine or oxycodone in several days. He is taking Tylenol generally once a day. Continues to take tramadol 25 mg twice daily and 50 mg at bedtime. He was c/o fatigue yesterday and Buspar was discontinued. He does not feel as tired today. Slept well last night. No CP, SOB, cough, hemoptysis. Calf pain is better. NO pain with compression of the calf today. Denies dysuria. No pelvic pain. Increased frequency resolved. All lab drawn this morning was personally reviewed. White blood cell count is normal at 10.9. He had 67.6% neutrophils. Immature granulocytes are still elevated at 4.2%. Hemoglobin is 11.2 and stable. Platelets are within normal limits. Sodium is low at 132 but stable. Potassium is 4.6. The BUN is 23 and creatinine is 0.67. Calcium is normal at 8.7. PSA is elevated at 7.27. This is the first PSA he has had at [facility]. Will obtain results of the last 3 PSA's he has had with Dr. Merlos. Objective Data Objective Data Vital Signs: Vital Signs Temp Pulse Resp BP Pulse Ox O2 Del Method 98.5 F 84 17 111/47 L 99 Room Air 11/11/24 17:23 11/12/24 08:03 11/11/24 17:23 11/12/24 08:03 11/11/24 17:23 11/11/24 17:23 Oxygen Delivery Method Room Air Weight: 135 lb 9.349 oz Body Mass Index (BMI) 21.7 Intake & Output: Intake and Output for Last 24 Hours 11/10/24 11/11/24 11/12/24 23:59 23:59 23:59 Intake Total 970 / 1170 1240 / 1240 90 / 90 Output Total 450 / 450 600 / 600 400 / 400 Balance 520 / 720 640 / 640 -310 / -310 Lab / Micro Data 11/12/24 05:50 11/12/24 05:50 Labs: Laboratory Results - last 24 hr 11/12/24 05:50: WBC 10.9, RBC 3.77 L, Hgb 11.2 L, Hct 34.2 L, MCV 90.7, MCH 29.7, MCHC 32.7, RDW Std Deviation 45.5 H, RDW Coeff of Braxton 14.0, Plt Count 434, MPV 8.1, Immature Gran % (Auto) 4.200 H, Neut % (Auto) 67.6, Lymph % (Auto) 14.2 L, Ector % (Auto) 8.9, Eos % (Auto) 4.3, Baso % (Auto) 0.8, Absolute Neuts (auto) 7.4, Absolute Lymphs (auto) 1.55, Nucleated RBC % 0, Sodium 132 L, Potassium 4.6, Chloride 98, Carbon Dioxide 25.4, Anion Gap 9, BUN 23 H, Creatinine 0.67 L, Estim Creat Clear Calc 64.06, Est GFR (MDRD) Non-Af 94, BUN/Creatinine Ratio 34.5 H, Glucose 115 H, Calcium 8.7 Micro: Microbiology 11/09/24 08:40 Stool Stool Occult Blood (TAYA) - Final 11/07/24 12:44 Urine, Clean Catch Urine Culture - Final Escherichia coli Physical Exam Const alert, oriented x3 and no apparent distress Resp clear to auscultation bilaterally Cardio regular rate, regular rhythm and no gallops GI normal to inspection, nondistended, normoactive bowel sounds, soft to palpation and non-tender GI Narrative: No diarrhea Extremity Extremity Narrative: Swelling in the left knee is much improved from admission. the erythema and increased warmth of the left medial knee is resolved. He continues to c/o pain. Still taking Tramadol 3 times a day and he is POD # 13. He is only taking the Tylenol once a day. Attempts to make Tramadol PRN failed......He would not ask for it but, would c/o severe pain. Skin General Skin Exam: no breakdown Rashes: no rashes Assessment & Plan Assessment/Plan (1) Physical debility: (2) Painful total knee replacement, left: QUALIFIERS: Encounter type: subsequent encounter Qualified Code(s): T84.84XD - Pain due to internal orthopedic prosthetic devices, implants and grafts, subsequent encounter; Z96.652 - Presence of left artificial knee joint (3) Hyperglycemia due to type 2 diabetes mellitus: QUALIFIERS: Diabetes mellitus group home insulin use: without group home use Qualified Code(s): E11.65 - Type 2 diabetes mellitus with hyperglycemia (4) Urine retention: PLAN: Had to increase Flomax to 0.8mg daily (5) Acute blood loss as cause of postoperative anemia: PLAN: Stable. Stool is heme negative. 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 (9) Cellulitis: QUALIFIERS: Site of cellulitis: extremity Site of cellulitis of extremity: lower extremity Laterality: left Qualified Code(s): L03.116 - Cellulitis of left lower limb (10) UTI (urinary tract infection) due to urinary indwelling catheter: QUALIFIERS: Indwelling urinary catheter type: indwelling urethral catheter Encounter type: initial encounter Qualified Code(s): T83.511A - Infection and inflammatory reaction due to indwelling urethral catheter, initial encounter; N39.0 - Urinary tract infection, site not specified PLAN: Secondary to E. Coli. Resistant to FQ's, ampicillin and ceftriaxone. Only intermediately sensitive to ampicillin/sulbactam. Denies hx of UTI's. (11) Elevated PSA, less than 10 ng/ml: PLAN: due to BPH?, prostate CA? or prostatitis? PLAN: Plan 1. Continue therapy 2. Obtain Dr. Merlos's results of PSAs over the past 3 years. If the PSA has been normal in the past would be inclined to tx with Bactrim DS for 2 weeks for suspected acute prostatitis. He will need to follow up with urology going forward for urine retention and elevated PSA. 3. Continue Bactrim DS 1 p.o. twice daily 4. Continue Eliquis for left lower extremity DVT 5. Encouraged him to take Tylenol for breakthrough pain We received the PSA's from Dr. Merlos. PSA on 10/26/2021 was 2.14. The PSA on 11/15/2022 was 2.72 and the most recent PSA in May 2023 was 2.79. Will treat for 14 days with Bactrim for suspected acute bacterial prostatitis. Charges/Coding Visit Charges Inpatient E&M: 76488 [facility] Hosp L1
--- NOTE | 2024-11-12 13:37 | CASEMGMT ---
Social Work IDT met with patient and brother for Team meeting. Discussed patient's progress in PT/OT/SN/MD. Educated to YUMIKO Pinon CM insurance and insurance rep stated pt will be approved for continued stay and pt can set a DC date. SW offered for dtr to complete therapy training and SW to assist with setting DC date once pt elects. SW has noted to coordinate [facility] and [facility] at DC. Pt expressed some concerns that he would like resolved prior to DC. After some discussion, pt/family and IDT agreed upon DC home 11/15. SW to place referrals. Plan: DC home alone with dtr supervision 11/15, [facility], [facility] - SW faxed referral to [facility] and sent referral to [facility] via [employer] for [facility]. Devorah Villasenor MSW RECEIVING TELLER
[2024-11-12 16:40] VITALS: BP 123/51; PULSE 65; RESP 15; TEMP 36.7; O2SAT 97
[2024-11-12 22:30] VITALS: BP 131/64; PULSE 73; RESP 16; TEMP 36.4; O2SAT 99
[2024-11-13 06:00] VITALS: BP 115/55; PULSE 69; RESP 18; TEMP 36.9; O2SAT 97; BMI 21.8
[2024-11-13] MEDS: Neuropathy Pain Cream Compound 60 CLICK TUBE TOPICAL ×3 (06:14→21:04)
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
[2024-11-13 08:38] VITALS: PULSE 69
[2024-11-13] MEDS: Metoprolol(XL)Succ 25 MG Tablet PO (08:38)
[2024-11-13] MEDS: Smz/Tmp Ds Tablet 1 TABLET PO ×2 (08:39→16:33)
[2024-11-13] MEDS: metFORMIN (XR) 500 MG Tablet PO (08:39)
[2024-11-13] MEDS: APIXABAN 5 MG TABLET 10 MG PO ×2 (08:39→21:08)
[2024-11-13] MEDS: Cholecalciferol (VIT D3) 25 MCG TABLET (1,000 UNITS) PO (08:39)
--- NOTE | 2024-11-13 10:45 | PCM.DC ---
Discharge Instructions DC O2, CPAP, BIPAP needs Home O2 Discharge instructions: No Dressing / Incision Discharge Activity: May Not Drive, May Shower and Use Walker Weight Bearing Status: Full weight bearing Keep extremity elevated above heart level: Left Leg (S/P left knee total knee replacement. ) Dressing / Incision Call your doctor if your incision/area has: Continuous Slow Oozing, Sudden Increased Bleeding, Increased Pain/ Swelling, Increased Redness, Foul Smelling Discharge and Swelling at the incision site Call your doctor if you observe: Fever of 101 or Higher, Inability to urinate, Shortness of breath, Dizziness, Fainting spells, Swelling in the ankles, Chest pain, Increased palpitations (irregular heartbeat), Calf discomfort and Uncontrolled pain Suture Line Care: Avoid Pulling/Pushing and Avoid Pinching/Bending Cleanse incision/area with: Soap & Water (No dressing needed. ) Follow Up Care When: Appts are listed later in this document. Test Results: Test results from this visit will be discussed in further detail at your follow-up appointment, if applicable. Pending Tests Upon Discharge: none Discharge Plan Admission Admit Date/Time: 10/31/24 14:30 Primary Reason for Your Visit: Debility secondary to left total knee replacement Attending Provider: Ria Martin Primary Care Provider: Jb Merlos Instructions Patient Instructions: Your Body's Response to Anxiety, Anxiety Disorders Tx, Understanding Anxiety Disorders, Caring for Your Incision Additional Instructions / Restrictions: 1. You have done very well in therapy and I do not think you will have any problem returning home. 2. You blood sugars are well controlled. 3. Your BP is on the lower side of what your normal is.......I think this is due to dehydration. Your sodium is stable at 132. You are allowed 1,500 cc/day (that is 50 ounces). Measure you fluid intake and attempt to at least get close to 1,500 cc per day. You are not lightheaded and so a BP of 94/52 is OK for you. Less work for your heart. This BP is an outlier......all the other BP's have been good. BP changes from one minute to the next. It is dependent on what you are doing. If you are calm and resting it will be lower. When you are exercising and exerting yourself it will be higher. 4. I think your anxiety is getting the best of you at times. I have given you some literature to read on how to control anxiety and what the symptoms of anxiety are. I think you have had anxiety for a long time but, you were able to cope with the anxiety by working and exercising. You had to stop exercising because of the pain in the knee and you have not been working while you have had surgery and been in rehab. You lost your coping mechanisms. Some people can learn to control their anxiety without medication. Sometimes you have to develop new coping mechanisms. Sometimes medication is needed. The Lexapro is controlling depression but, not help so much with anxiety. I am glad you are willing to try counselling to help you manage your stress. You may still need a drug to help with anxiety but, I would try the therapy first. 5. Tramadol is a pain medication. It can be addictive. You are now 2 weeks post-op and the pain should be getting better. Your knee looks very good. I want your to take Tylenol 1,000 every 8 hours. Tylenol is not addictive and it is a good pain reliever. It does not cause nausea/abdominal pain of sedation. I have given you a prescription for Tramadol. Do not be afraid to take it if you need it. You can take 1 tablet every 6 hours as needed for pain not controlled with Tylenol. All pain is worse at night because you are not distracted by therapy/people/tasks. For at least the first 5-7 days at home I recommend you take a Tramadol prior to going to bed at night. 6. You will need to stay on the Eliquis (anticoagulant) to treat the blood clot in the left leg. The medication does not dissolve the clot.......your own body will take care of that. The anticoagulant prevents the clot from getting bigger. In 3 months you will need to get another ultrasound of the Left leg to make sure the clot is gone prior to stopping the Eliquis. Eliquis is a blood thinner. If you are having blood in your stool, bleeding from your nose, large areas of bruising you should call your primary care doctor for advice. Also call if you have black tarry stool. or you are coughing up blood. We checked your stool while you were on Eliquis in the rehab unit and it had no blood in it. 7. Your PSA is a little elevated and we had to go up on the Flomax to 0.8 mg to keep you from retaining urine. You are going to see Dr. Mccall about the urine retention and the elevation of the PSA. I do NOT think you have infection of the prostate because your prostate is not tender to palpation and it is not Boggy. 8. If has been a pleasure meeting you [place] and getting to know you. I have enjoyed talking with you. If you or your daughter have any questions after you leave rehab please do not hesitate to call me. Also call if there is anything I can help you with. OFFICE: [phone] CELL: [phone] NURSES ST[facility] ON REHAB: [phone] Discharge Orders/Prescriptions Prescriptions: New sennosides-docusate sodium [Stimulant Laxative Plus] 8.6-50 mg Tablet 1 tab PO BID Qty: 60 0RF sulfamethoxazole-trimethoprim 800-160 mg Tablet 1 tab PO BIDCM Qty: 4 0RF Rx Instructions: discontinue when you have taken the 4 tabs acetaminophen 500 mg Tablet 1,000 mg PO Q8 PRN (Reason: Pain 1-10 Or Fever) Qty: 100 0RF tamsulosin 0.4 mg Capsule 0.8 mg PO QHS Qty: 60 0RF Rx Instructions: Take 2 caps at bedtime sodium chloride 1,000 mg Tablet,Soluble 1,000 mg PO BID Qty: 60 0RF Eliquis 5 mg Tablet 5 mg PO BID Qty: 60 2RF tramadol 25 mg tablet 25 mg PO 0600,1400 7 Days Qty: 42 0RF Rx Instructions: Take 1-2 tabs every 8 hours as needed for pain not relieved with Tylenol Continued losartan 25 mg tablet 25 mg PO DAILY atorvastatin 20 MG tablet 20 mg PO QHS aspirin 81 MG tablet,chewable 81 mg PO DAILY@0800 cholecalciferol (vitamin D3) 1,000 UNIT tablet 1,000 unit PO DAILY metformin 500 mg tablet extended release 24 hr 500 mg PO DAILY metoprolol succinate [Toprol XL] 25 mg tablet extended release 24 hr 25 mg PO DAILY escitalopram oxalate 10 mg tablet 10 mg PO DAILY Qty: 60 3RF Discontinued tamsulosin 0.4 mg capsule 0.4 mg PO QHS Patient Comments: Take 1 capsule by mouth once daily. cyclobenzaprine 10 mg tablet 10 mg PO Q8H PRN (Reason: muscle spasms) oxycodone 5 mg tablet 5 mg PO Q6H PRN (Reason: pain) Ure-Na 15 gram powder in packet 1 packet PO DAILY polyethylene glycol 3350 [Miralax] 17 gram/dose powder 17 g PO DAILY acetaminophen 500 mg tablet 1,000 mg PO Q8 Referrals / Follow Up: Christopher Gibbs [Other] - 11/19/24 1:45 pm Ignacio Mccall MD [Non-Staff] - (patient will make appointment) Gian Colvin DPM [Med Staff - Active Staff] - 12/05/24 1:30 pm Jb Merlos MD [Primary Care Provider] - 12/12/24 3:00 pm (patient made appointment for this date) Disposition Disposition (needs filled in before D/C Order can be placed): Home, Self Care
[2024-11-13 17:39] VITALS: BP 112/60; PULSE 70; RESP 17; TEMP 36.6; O2SAT 98
[2024-11-13] MEDS: Senna/Docusate Sodium 1 Tablet 2 TABLET PO (21:06)
[2024-11-14 06:00] VITALS: BP 128/58; PULSE 72; RESP 16; TEMP 36.4; O2SAT 99
[2024-11-14] MEDS: Neuropathy Pain Cream Compound 60 CLICK TUBE TOPICAL ×3 (06:16→21:15)
[2024-11-14 06:20] VITALS: BMI 21.9
[2024-11-14 08:00] VITALS: BP 94/52; PULSE 78
[2024-11-14] MEDS: Cholecalciferol (VIT D3) 25 MCG TABLET (1,000 UNITS) PO (08:02)
[2024-11-14] MEDS: Senna/Docusate Sodium 1 Tablet 2 TABLET PO ×2 (08:02→21:14)
[2024-11-14] MEDS: APIXABAN 5 MG TABLET PO ×2 (08:02→21:15)
[2024-11-14] MEDS: Smz/Tmp Ds Tablet 1 TABLET PO ×2 (08:02→18:46)
[2024-11-14] MEDS: metFORMIN (XR) 500 MG Tablet PO (08:02)
--- NOTE | 2024-11-14 11:58 | PN_ITS ---
Progress Note VSS Afebrile Maintaining appropriate oxygen saturation on room air Blood sugars are under excellent control Blood pressure is 94/52 this a.m. but he is asymptomatic. Will hold metoprolol today and instructed him to increase his fluid intake today. Alert, no apparent distress Heart-regular rate and rhythm, no ectopy, no gallop Lungs-clear to auscultation Abdomen-soft, nontender, nondistended, no guarding with palpation No significant edema of the left ankle. Denies calf pain when I compress the calf. Assessment & Plan Assessment/Plan (1) Physical debility: (2) Painful total knee replacement, left: QUALIFIERS: Encounter type: subsequent encounter Qualified Code(s): T84.84XD - Pain due to internal orthopedic prosthetic devices, implants and grafts, subsequent encounter; Z96.652 - Presence of left artificial knee joint (3) Hyperglycemia due to type 2 diabetes mellitus: QUALIFIERS: Diabetes mellitus snf insulin use: without intermediate manager use Qualified Code(s): E11.65 - Type 2 diabetes mellitus with hyperglycemia (4) Urine retention: PLAN: Had to increase Flomax to 0.8mg daily (5) Acute blood loss as cause of postoperative anemia: PLAN: Stable. Stool is heme negative. 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 (9) Cellulitis: QUALIFIERS: Site of cellulitis: extremity Site of cellulitis of extremity: lower extremity Laterality: left Qualified Code(s): L03.116 - Cellulitis of left lower limb (10) UTI (urinary tract infection) due to urinary indwelling catheter: QUALIFIERS: Indwelling urinary catheter type: indwelling urethral catheter Encounter type: initial encounter Qualified Code(s): T83.511A - Infection and inflammatory reaction due to indwelling urethral catheter, initial encounter; N39.0 - Urinary tract infection, site not specified PLAN: Secondary to E. Coli. Resistant to FQ's, ampicillin and ceftriaxone. Only intermediately sensitive to ampicillin/sulbactam. Denies hx of UTI's. (11) Elevated PSA, less than 10 ng/ml: PLAN: due to BPH?, prostate CA? or prostatitis? (12) Anxiety and depression: PLAN: Plan 1. Plan discharge home tomorrow with outpatient therapy at [facility] 2. His daughter came in for family training today to learn how best to assist follow-up 3. SW will see patient to discuss options for securing psychotherapy for anxiety post DC from rehab. Visit Charges Inpatient E&M: 47267 Subs Hosp L1
--- NOTE | 2024-11-14 12:04 | PCM.DC.SUM ---
Providers Date of Admission: 10/31/24 Date of Discharge: 11/15/24 Primary Care Physician: Dr. Jb Merlos MD None Reason For Visit: LEFT KNEE REPLACEMENT Diagnosis Discharge Diagnosis (1) Physical debility: Status: Acute Code(s): R53.81 - Other malaise (2) Painful total knee replacement, left: Status: Acute Code(s): T84.84XA - Pain due to internal orthopedic prosthetic devices, implants and grafts, initial encounter; Z96.652 - Presence of left artificial knee joint Qualifiers: Encounter type: subsequent encounter Qualified Code(s): T84.84XD - Pain due to internal orthopedic prosthetic devices, implants and grafts, subsequent encounter; Z96.652 - Presence of left artificial knee joint Plan: 10/29/2024 at [facility]. (3) Hyperglycemia due to type 2 diabetes mellitus: Status: Resolved Code(s): E11.65 - Type 2 diabetes mellitus with hyperglycemia Qualifiers: Diabetes mellitus poultry packer insulin use: without chcf use Qualified Code(s): E11.65 - Type 2 diabetes mellitus with hyperglycemia (4) Urine retention: Status: Resolved Code(s): R33.9 - Retention of urine, unspecified Plan: Had to increase Flomax to 0.8mg daily (5) Acute blood loss as cause of postoperative anemia: Status: Acute Code(s): D62 - Acute posthemorrhagic anemia Plan: Stable. Stool is heme negative. Hemoglobin at discharge from rehab is 11.2. 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 Stable at 132. Will continue salt tablets and 1500 cc a day fluid restriction. (7) Radicular pain: Status: Acute Code(s): M54.10 - Radiculopathy, site unspecified Plan: Left anterior thigh. Resolved with compounded neuropathic cream. (8) Left leg DVT: Status: Acute Code(s): I82.402 - Acute embolism and thrombosis of unspecified deep veins of left lower extremity Qualifiers: Affected thrombotic vein of extremity: peroneal Chronicity: acute Qualified Code(s): I82.452 - Acute embolism and thrombosis of left peroneal vein Plan: Peroneal and soleus veins. Received 100 mg BID of Elquis to load and then will continue 5 mg BID (started 11/14/24) for 3 months for provoked DVT. would obtain an US of the LLE prior to discontinuing anticoagulation. (9) Cellulitis: Status: Resolved Code(s): L03.90 - Cellulitis, unspecified Qualifiers: Laterality: left Site of cellulitis: extremity Site of cellulitis of extremity: lower extremity Qualified Code(s): L03.116 - Cellulitis of left lower limb Plan: L medial knee. Resolved with Bactrim DS. (10) UTI (urinary tract infection) due to urinary indwelling catheter: Status: Resolved Code(s): T83.511A - Infection and inflammatory reaction due to indwelling urethral catheter, initial encounter; N39.0 - Urinary tract infection, site not specified Qualifiers: Encounter type: initial encounter Indwelling urinary catheter type: indwelling urethral catheter Qualified Code(s): T83.511A - Infection and inflammatory reaction due to indwelling urethral catheter, initial encounter; N39.0 - Urinary tract infection, site not specified Plan: Secondary to E. Coli. Resistant to FQ's, ampicillin and ceftriaxone. Only intermediately sensitive to ampicillin/sulbactam. Denies hx of UTI's. He was treated with 3 days of Nitrofurantoin and 7 days of Bactrim DS. Changed the drug to Bactrim to also treat the cellulitis of the L medial knee. (11) Elevated PSA, less than 10 ng/ml: Status: Acute Code(s): R97.20 - Elevated prostate specific antigen [PSA] Plan: Due to BPH?, prostate CA? or prostatitis? Rectal exam not consistent with prostatitis. L lobe of the prostate is larger than the left and is more firm but, not tender or boggy. He is going to follow up with Dr. Ignacio Mccall from neurology for urine retention and elevated PSA. PSA in May 2023 was 2.79. PSA while on rehab was 7.27 (12) Anxiety and depression: Status: Chronic Code(s): F41.9 - Anxiety disorder, unspecified; F32.A - Depression, unspecified Plan: Anxiety>depression. I think depression is being adequately treated with Lexapro 10 mg but, he has chronic severe anxiety. He is agreeable to getting some counselling post DC from rehab. We tried him on BuSpar 5 mg twice daily which did help in that he had decreaased somatic complaints and did not perseverate on things so much. He c/o fatigue and the Busapr was discontinued.......the fatigue dide not change and he has been complaining of fatigue for the past 3 years. 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 transplanted heart: [place] heart Qualified Code(s): I25.10 - Atherosclerotic heart disease of [place] coronary artery without angina pectoris (14) H/O coronary artery bypass surgery: Status: Resolved Code(s): Z95.1 - Presence of aortocoronary bypass graft (15) Essential (primary) hypertension: Status: Chronic Code(s): I10 - Essential (primary) hypertension (16) Hyperlipidemia: Status: Chronic Code(s): E78.5 - Hyperlipidemia, unspecified Qualifiers: Hyperlipidemia type: pure hypercholesterolemia Qualified Code(s): E78.00 - Pure hypercholesterolemia, unspecified Plan 1. Jas was discharged home on 11/15/24. His dtr will be staying with him for the next 7-10 days and she came in [facility] family training prior to DC. 2. OP PT at [facility]. 3. The patient is confined to one level of the home environment and there is no toilet on that level. 4. He will follow up with Dr. Gibbs (orthopedic surgery), Dr. Mccall (urology), Dr. Merlos (PCP), cardiology and Dr. Colivn. 5. RX's were faxed to [facility] in [place]. Medications at Discharge Home Medications aspirin 81 mg chewable tablet 81 mg PO DAILY@0800 heart health 08/26/14 atorvastatin 20 mg tablet 20 mg PO QHS cholesterol 08/26/14 cholecalciferol (vitamin D3) 25 mcg (1,000 unit) tablet 1,000 unit PO DAILY vitamin 08/26/14 losartan 25 mg tablet 25 mg PO DAILY blood pressure 12/23/17 escitalopram oxalate 10 mg tablet 10 mg PO DAILY depression #60 tabs 10/12/23 metformin 500 mg tablet,extended release 24 hr 500 mg PO DAILY blood sugar 04/02/24 metoprolol succinate 25 mg tablet,extended release 24 hr (Toprol XL) 25 mg PO DAILY blood pressure 04/02/24 acetaminophen 500 mg tablet 1,000 mg (2 x 500 mg) PO Q8 PRN Pain 1-10 Or Fever #100 tabs 11/13/24 apixaban 5 mg tablet (Eliquis) 5 mg PO BID #60 tabs 11/13/24 sennosides 8.6 mg-docusate sodium 50 mg tablet (Stimulant Laxative Plus) 1 tab PO BID #60 tabs 11/13/24 sodium chloride 1,000 mg soluble tablet 1,000 mg PO BID #60 tabs 11/13/24 sulfamethoxazole 800 mg-trimethoprim 160 mg tablet 1 tab PO BIDCM #4 tabs 11/13/24 tamsulosin 0.4 mg capsule 0.8 mg (2 x 0.4 mg) PO QHS #60 caps 11/13/24 tramadol 25 mg tablet 25 mg PO 0600,1400 1 week #42 tabs 11/13/24 Hospital Course Operations total knee replacement (10/29/2024 at [facility] by . ) Procedures None Summary of Care Provided Minutes Spent on Discharge: 35 Hospital Course: Jas is an 79 YO male who underwent an elective left total knee replacement at [facility] on 10/29/2024. He was transferred to the acute inpatient rehab unit at [facility] on 10/31/2024. He was retaining urine at admission and a Ojeda catheter was Present at the time he was admitted. UA at admission to rehab showed 50-100 RBCs per high-powered field but only 0-5 WBCs. There was no bacteria. After a few days a voiding trial was done and he continued to retain urine. He also began c/o urinary urgency, frequency and increased nocturia. The Ojeda was reinserted and a UA was ordered that showed. Flomax was increased to 0.8 mg daily. The UA showed 25-50 WBCs with no RBCs. There was 3+ bacteria. He was started on Macrobid 100 mg p.o. twice daily and a urine culture was ordered. The urine culture grew greater than 100,000 colonies of E. coli which was resistant to ampicillin, ceftriaxone and Fluoroquinolones. It was only intermediately sensitive to ampicillin/sulbactam. He developed some redness of the left medial knee in the interim between starting the Macrobid and getting the results of the urine culture. Macrobid was discontinued and he was started on Bactrim DS 1 p.o. twice daily. The E. coli was sensitive to Bactrim. The cellulitis and the urinary tract infection both resolved with Bactrim. A PSA was ordered and was elevated at 7.27. The PSA in May 2023 was 2.79. With the increase in the Flomax urine retention resolved and the Ojeda was discontinued. He was not receiving pharmacologic DVT prophylaxis at the time of admission to rehab. He chronically takes 81 mg of aspirin daily and this was increased to twice daily for DVT prophylaxis. SMITH hose were applied. He later started complaining of left calf pain and a venous ultrasound was obtained which showed DVT in the soleus and peroneal veins. He was ordered Eliquis 10 mg twice daily for 7 days and prior to discharge from rehab was transition to 5 mg twice daily. He should continue 5 mg twice daily for a total of 3 months for provoked DVT. Would obtain a follow-up venous ultrasound of the left lower extremity prior to discontinuing Eliquis in 3 months. Jas did very well in therapy. At the time of DC from rehab he is able to complete 11 sit to stands in 30 sec using his UE's to rise. He is able to ascend/descend 13 steps with 1 handrail and a straight cane at standby assist. He has ambulated up to 300 feet on various surfaces with a front wheel walker at mod I and he has ambulated with a straight cane for 110 feet at contact-guard assist. He is mod I for independent with eating, grooming, bathing, upper body dressing, toilet transfer and toileting. He is patient/set up for lower body dressing and supervision for tub/shower transfer. Jas was discharged from [facility] on 11/15/24 and will have OP PT at [facility]. He will follow up with orthopedic surgery, urology, Dr. Merlos and cardiology. He also has an appt for follow up with Dr. Colvin. DME needed was a BSC because he is limited to the first floor of his house and the BR is on the [employer] story. Physical Exam Const alert, oriented x3 and no apparent distress Constitutional Narrative: Anxious. Does not appear in pain. General Appearance: cooperative HEENT HEENT Narrative: He bit the inner surface of his lower lip last night and he has a small ulceration at the site. It is not bleeding and there is non significant swelling. Eyes PERRL, EOMs intact bilaterally, conjunctivae normal and no scleral icterus Eyes Narrative: No discharge from the eyes. Neck supple Resp normal respiratory effort, normal air movement and clear to auscultation bilaterally Resp Narrative: No dyspnea on exertion Effort and Inspection: able to speak in complete sentences and symmetric chest movement Cardio regular rate, regular rhythm and no gallops Cardio Narrative: No ectopy GI normal to inspection, nondistended, normoactive bowel sounds, soft to palpation and non-tender GI Narrative: No diarrhea. Having regular bowel movements. Extremity Extremity Narrative: Swelling in the left knee is much improved from admission. The erythema and increased warmth of the left medial knee is resolved. He denies calf pain today. Skin General Skin Exam: no breakdown Rashes: no rashes Psych Psych Narrative: He remains anxious. We discussed getting counselling for anxiety and he was interested. He was given resources to check out by the SW. Weight / BMI Weight Weight: 136 lb 10.986 oz Body Mass Index (BMI) 21.9 ABG / Lab / Microbiology Data 11/12/24 05:50 11/12/24 05:50 Microbiology: Microbiology 11/09/24 08:40 Stool Stool Occult Blood (TAYA) - Final 11/07/24 12:44 Urine, Clean Catch Urine Culture - Final Escherichia coli D/C Instructions Weight Bearing Status: Full weight bearing Keep extremity elevated above heart level: Left Leg (S/P left knee total knee replacement. ) Call your doctor if your incision/area has: Continuous Slow Oozing, Sudden Increased Bleeding, Increased Pain/ Swelling, Increased Redness, Foul Smelling Discharge and Swelling at the incision site Call your doctor if you observe: Fever of 101 or Higher, Inability to urinate, Shortness of breath, Dizziness, Fainting spells, Swelling in the ankles, Chest pain, Increased palpitations (irregular heartbeat), Calf discomfort and Uncontrolled pain Suture Line Care: Avoid Pulling/Pushing and Avoid Pinching/Bending Cleanse incision/area with: Soap & Water (No dressing needed. ) DC O2, CPAP, BIPAP Needs Home O2 Discharge instructions: No Pending Tests Upon Discharge: none When: Appts are listed later in this document. Meaningful Use Info Meaningful Use Meaningful Use Diagnoses (Choose all that apply): VTE (Deep vein thrombosis of the left soleus and peroneal veins that developed while on rehab and while he was taking ASA 81 mg BID. ) VTE Anticoag overlap given w/in hospital stay or rx'd at dc?: No Pt receive overlap for 5 days?: No Reason overlap not ordered, prescribed, or given for 5 days: Treatment Not Indicated (He received 7 days of Eliquis 10 mg p.o. twice daily and then was transitioned prior to discharge to 5 mg twice daily. No need for overlap.) Discharge Plan Admission Admit Date/Time: 10/31/24 14:30 Primary Reason for Your Visit: Debility secondary to left total knee replacement Attending Provider: Ria Martin Primary Care Provider: Jb Merlos Instructions Patient Instructions: Your Body's Response to Anxiety, Anxiety Disorders Tx, Understanding Anxiety Disorders, Caring for Your Incision Additional Instructions / Restrictions: 1. You have done very well in therapy and I do not think you will have any problem returning home. 2. You blood sugars are well controlled. 3. Your BP is on the lower side of what your normal is.......I think this is due to dehydration. Your sodium is stable at 132. You are allowed 1,500 cc/day (that is 50 ounces). Measure you fluid intake and attempt to at least get close to 1,500 cc per day. You are not lightheaded and so a BP of 94/52 is OK for you. Less work for your heart. This BP is an outlier......all the other BP's have been good. BP changes from one minute to the next. It is dependent on what you are doing. If you are calm and resting it will be lower. When you are exercising and exerting yourself it will be higher. 4. I think your anxiety is getting the best of you at times. I have given you some literature to read on how to control anxiety and what the symptoms of anxiety are. I think you have had anxiety for a long time but, you were able to cope with the anxiety by working and exercising. You had to stop exercising because of the pain in the knee and you have not been working while you have had surgery and been in rehab. You lost your coping mechanisms. Some people can learn to control their anxiety without medication. Sometimes you have to develop new coping mechanisms. Sometimes medication is needed. The Lexapro is controlling depression but, not help so much with anxiety. I am glad you are willing to try counselling to help you manage your stress. You may still need a drug to help with anxiety but, I would try the therapy first. 5. Tramadol is a pain medication. It can be addictive. You are now 2 weeks post-op and the pain should be getting better. Your knee looks very good. I want your to take Tylenol 1,000 every 8 hours. Tylenol is not addictive and it is a good pain reliever. It does not cause nausea/abdominal pain of sedation. I have given you a prescription for Tramadol. Do not be afraid to take it if you need it. You can take 1 tablet every 6 hours as needed for pain not controlled with Tylenol. All pain is worse at night because you are not distracted by therapy/people/tasks. For at least the first 5-7 days at home I recommend you take a Tramadol prior to going to bed at night. 6. You will need to stay on the Eliquis (anticoagulant) to treat the blood clot in the left leg. The medication does not dissolve the clot.......your own body will take care of that. The anticoagulant prevents the clot from getting bigger. In 3 months you will need to get another ultrasound of the Left leg to make sure the clot is gone prior to stopping the Eliquis. Eliquis is a blood thinner. If you are having blood in your stool, bleeding from your nose, large areas of bruising you should call your primary care doctor for advice. Also call if you have black tarry stool. or you are coughing up blood. We checked your stool while you were on Eliquis in the rehab unit and it had no blood in it. 7. Your PSA is a little elevated and we had to go up on the Flomax to 0.8 mg to keep you from retaining urine. You are going to see Dr. Mccall about the urine retention and the elevation of the PSA. I do NOT think you have infection of the prostate because your prostate is not tender to palpation and it is not Boggy. 8. If has been a pleasure meeting you [place] and getting to know you. I have enjoyed talking with you. If you or your daughter have any questions after you leave rehab please do not hesitate to call me. Also call if there is anything I can help you with. OFFICE: [phone] CELL: [phone] NURSES STATION ON REHAB: [phone] Discharge Orders/Prescriptions Prescriptions: New sennosides-docusate sodium [Stimulant Laxative Plus] 8.6-50 mg Tablet 1 tab PO BID Qty: 60 0RF sulfamethoxazole-trimethoprim 800-160 mg Tablet 1 tab PO BIDCM Qty: 4 0RF Rx Instructions: discontinue when you have taken the 4 tabs acetaminophen 500 mg Tablet 1,000 mg PO Q8 PRN (Reason: Pain 1-10 Or Fever) Qty: 100 0RF tamsulosin 0.4 mg Capsule 0.8 mg PO QHS Qty: 60 0RF Rx Instructions: Take 2 caps at bedtime sodium chloride 1,000 mg Tablet,Soluble 1,000 mg PO BID Qty: 60 0RF Eliquis 5 mg Tablet 5 mg PO BID Qty: 60 2RF tramadol 25 mg tablet 25 mg PO 0600,1400 7 Days Qty: 42 0RF Rx Instructions: Take 1-2 tabs every 8 hours as needed for pain not relieved with Tylenol Continued losartan 25 mg tablet 25 mg PO DAILY atorvastatin 20 MG tablet 20 mg PO QHS aspirin 81 MG tablet,chewable 81 mg PO DAILY@0800 cholecalciferol (vitamin D3) 1,000 UNIT tablet 1,000 unit PO DAILY metformin 500 mg tablet extended release 24 hr 500 mg PO DAILY metoprolol succinate [Toprol XL] 25 mg tablet extended release 24 hr 25 mg PO DAILY escitalopram oxalate 10 mg tablet 10 mg PO DAILY Qty: 60 3RF Discontinued tamsulosin 0.4 mg capsule 0.4 mg PO QHS Patient Comments: Take 1 capsule by mouth once daily. cyclobenzaprine 10 mg tablet 10 mg PO Q8H PRN (Reason: muscle spasms) oxycodone 5 mg tablet 5 mg PO Q6H PRN (Reason: pain) Ure-Na 15 gram powder in packet 1 packet PO DAILY polyethylene glycol 3350 [Miralax] 17 gram/dose powder 17 g PO DAILY acetaminophen 500 mg tablet 1,000 mg PO Q8 Referrals / Follow Up: Christopher Gibbs [Other] - 11/19/24 1:45 pm Ignacio Mccall MD [Non-Staff] - (patient will make appointment) Gian Colvin DPM [Med Staff - Active Staff] - 12/05/24 1:30 pm Jb Merlos MD [Primary Care Provider] - 12/12/24 3:00 pm (patient made appointment for this date) Disposition Disposition (needs filled in before D/C Order can be placed): Home, Self Care Charges/Coding Visit Charges Inpatient E&M: 11934 Disch Hosp >30min
[2024-11-14 17:58] VITALS: BP 111/51; PULSE 86; RESP 16; TEMP 36.3; O2SAT 99
[2024-11-14 21:05] VITALS: PULSE 86; RESP 17; O2SAT 99
[2024-11-15 06:00] VITALS: BP 134/65; PULSE 82; RESP 16; TEMP 36.7; O2SAT 98
[2024-11-15] MEDS: Neuropathy Pain Cream Compound 60 CLICK TUBE TOPICAL (06:50)
[2024-11-15] MEDS: metFORMIN (XR) 500 MG Tablet PO (08:07)
[2024-11-15 08:08] VITALS: BP 125/61; PULSE 89
[2024-11-15] MEDS: Metoprolol(XL)Succ 25 MG Tablet PO (08:08)
[2024-11-15] MEDS: Smz/Tmp Ds Tablet 1 TABLET PO (08:08)
[2024-11-15] MEDS: APIXABAN 5 MG TABLET PO (08:08)
[2024-11-15] MEDS: Cholecalciferol (VIT D3) 25 MCG TABLET (1,000 UNITS) PO (08:08)
[2024-11-15] MEDS: Senna/Docusate Sodium 1 Tablet 2 TABLET PO (08:08)
== END 2024-11-15 12:15 | disposition home or self-care (01) | DRG 949 ==
PROVIDERS: Admitting Provider Internal Medicine; PCP Internal Medicine; Referring Provider Internal Medicine; Visit Provider Internal Medicine
DX: T84.84XD Pain due to internal orthopedic prosthetic devices, implants and grafts, subsequent encounter (principal); I82.452 Acute embolism and thrombosis of left peroneal vein; E22.2 Syndrome of inappropriate secretion of antidiuretic hormone; L03.116 Cellulitis of left lower limb; Z16.24 Resistance to multiple antibiotics; Z16.11 Resistance to penicillins; Z16.23 Resistance to quinolones and fluoroquinolones; Z16.39 Resistance to other specified antimicrobial drug; I82.462 Acute embolism and thrombosis of left calf muscular vein; E11.65 Type 2 diabetes mellitus with hyperglycemia; E11.40 Type 2 diabetes mellitus with diabetic neuropathy, unspecified; B96.20 Unspecified Escherichia coli [E. coli] as the cause of diseases classified elsewhere; I34.81 Nonrheumatic mitral (valve) annulus calcification; I10 Essential (primary) hypertension; F32.A Depression, unspecified; E78.00 Pure hypercholesterolemia, unspecified; T83.511A Infection and inflammatory reaction due to indwelling urethral catheter, initial encounter; I25.10 Atherosclerotic heart disease of native coronary artery without angina pectoris; M54.10 Radiculopathy, site unspecified; F41.9 Anxiety disorder, unspecified; F43.10 Post-traumatic stress disorder, unspecified; Z79.84 Long term (current) use of oral hypoglycemic drugs; N40.1 Benign prostatic hyperplasia with lower urinary tract symptoms; R33.8 Other retention of urine; Y79.2 Prosthetic and other implants, materials and accessory orthopedic devices associated with adverse incidents; Z96.652 Presence of left artificial knee joint; Z86.718 Personal history of other venous thrombosis and embolism; Z79.899 Other long term (current) drug therapy; N39.0 Urinary tract infection, site not specified; Y73.1 Therapeutic (nonsurgical) and rehabilitative gastroenterology and urology devices associated with adverse incidents; R97.20 Elevated prostate specific antigen [PSA]
CPT/HCPCS: 36415; 80048; 80053; 81001; 82274; 82962; 83735; 83930; 83935; 84100; 84153; 84300; 85014; 85018; 85025; 85652; 86140; 87077; 87086; 87088; 87186; 93971; 94668; 97110; 97116; 97162; 97166; 97530; 97535; 97802; G0103

== ENCOUNTER 2025-01-11 13:00 | Outpatient (RCR) | payer OTHER, SELFPAY ==
--- NOTE | 2024-11-16 12:05 | HP.PTEVAL_ITS ---
Patient's Visit Information Visit Information Visit Information: GRISELDA HANKINS is a 79 year old M referred to Physical Therapy by HODAN GALARZA with a diagnosis of L Unilateral OA. Date of Evaluation: 11/16/24 Physical Therapist: Clifford Alfaro, PT, JULIA, SCS, CSCS Visit Plan Frequency: 3x /Week Duration: 6 Weeks Plan: Plan to see 3xweek for at least 6 weeks as he lives alone and has a two story home. Initally working on decreasing swelling and improveing ROm and Strength. 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 Galarza following his L TKR on 10.29.24. Following his surgery he was on the rehab unit at [facility] till November 15. His Pmhx is significant for long covid syndrome, a current blot clot, diabetes Pain Left Knee: Pain Intensity (Out of 10): 3 Pain Intensity Range: 1 and 6 Comment: Relatively littel pain at rest when bending increase to 5-6/10 Objective Objective: MR Hankins which he prefers ravi is ambulating with a wheel walker community distances. His incision site looks good with no seepage or drainage. I took the opportunity ot remove his dressing and he did not need any addition bandage. His dorsal peddle pulse was palpable. he was able to perform a SLR without difficult and we will do more formal MMT at next visits. His girt h measurement were as follows: L 14.25 inches 3 inches above knee, 15 at knee and 12.25 3 inches below patella. R 13.5 inches 3 inches above knee,11.0 inches at knee, 12.25 3 inches below his knee. ROM -5 extension 114 flexion with slow end feel Balance/Special Test Scores WOMAC Total Score: 39 WOMAC Percentatge: 59.3800 Goals Goal 1:: Return demo HEP on next visit Goal Time Frame: 1 Week Goal 2:: Improve ROM to 0 degrees extension and 125 degrees flexion Goal Time Frame: 4-6 Weeks Goal 3:: Wean from assistive device as appropriate Goal Time Frame: 6-8 Weeks Rehabilitation Potential Physical Therapy Diagnosis: L TKR 10.29.24 Rehabilitation Potential: Good Anticipated Interventions Patient/Client Instruction: Educate patient on: Condition and Plan of Care For the Purpose of:: To decrease pain, To decrease swelling/inflammation, To increase ROM and To improve gait and locomotor functions Therapeutic Exercise to Include: Strength training, Balance training, Flexibilty training and Gait and locomotor training For the Purpose of:: To decrease pain, To decrease swelling/inflammation, To increase ROM and To improve gait and locomotor functions Manual Therapy Techniques to Include: Massage For the Purpose of:: To decrease pain, To decrease swelling/inflammation and To increase ROM Assistive Devices: Cane and Standard walker Supportive Equipment: Compression garments For the Purpose of:: To decrease pain, To decrease swelling/inflammation, To increase ROM and To improve gait and locomotor functions Text: Thank you for the opportunity to evaluate your patient. For Medicare and Medicare HMO plans, please review the plan of care and approve it. It will need to be FAXED BACK to us at [phone] for Medicare purposes. For Medicare only, by signing this I certify the plan of care. Please let me know if there are questions or concerns regarding this plan of care. Physician Signature: Date:
--- NOTE | 2025-01-11 14:19 | HP.PTDCSUM_ITS ---
Discharge Summary D/C summary: It has been my pleasure to treat GRISELDA HANKINS referred by HODAN MAHER, with the diagnosis of L Unilateral OA 10/29/24 for a total of 23 visit(s). Discharge Date: 01/11/25 Please see the following information for a summary of their discharge status. Subjective Subjective: Jas is doing well waling up down stairs without holding on. Taking 1-2 Tylenol a day to manage pain. Ambulating without assistive device. Walking household and community distances. Driving when convenient. L leg ext 63.5 R leg ext 41 L flexion 27 vs 29 right. Girth measurements 14.0 r vs 14.25 inch left. ROM 138 R vs 135 l ext -5 Left leg Pain Left Knee: Pain Intensity (Out of 10): 0 Overall Improvement % Improvement: 90 Objective Objective/Function: L leg ext 63.5 R leg ext 41 L flexion 27 vs 29 right. Girth measurements 14.0 r vs 14.25 inch left. ROM 138 R vs 135 l ext -5 Left leg. Ambulating without assistive t device commnicaty and household distances Goals Goal 1:: Return demo HEP on next visit Goal Progress: Goal Met Goal 2:: Improve ROM to 0 degrees extension and 125 degrees flexion Goal Progress: Goal Met Goal 3:: Wean from assistive device as appropriate Goal Progress: Goal Met Plan Plan: Discharge to [facility]. For years I've been trying to convince him to workout at [employer]. I think he is finally going to do it and get a retail personal banker to guide him. Despite his long covid symptoms and his color and energy appear to be returning. D/C Information Discharge Comments: Follows up with doctor in several months, finally progressing and will encourage a wellness membership. d/c sentence: If there are questions or concerns regarding this patient's physical therapy, please feel free to call me at [phone]. Thank you for the referral of this patient. Sincerely, Clifford Alfaro, PT, JULIA, SCS, CSCS Balance/Gait/Functional tests Balance/Special Test Scores TUG Test Time Seconds: 9.51 Tug Test: <10 sec.=free mobile 30 Second Chair Rise Test Seconds: 11 WOMAC Total Score: 18 WOMAC Percentage: 81.2500 Improvement % Improvement: 90
== END 2025-01-11 19:00 | disposition home or self-care (01) ==
LOC: PT 13:00
PROVIDERS: PCP Internal Medicine
DX: M17.12 Unilateral primary osteoarthritis, left knee (principal); Z96.652 Presence of left artificial knee joint
CPT/HCPCS: 97014; 97110; 97162; 97164; G0283

== ENCOUNTER → 2025-02-06 | Outpatient (CLI) | payer OTHER, SELFPAY ==
[2025-02-06 10:08] LABS: Hematocrit 40.5 % (40-54); Hemoglobin 13.1 g/dL (13.0-16.5); Immature Granulocytes Count 0.040 X10^3/uL (0.0-0.0); Mean Corp Hgb Conc 32.3 g/dL (32-36); Mean Corpuscular Volume 89.8 fL (80-94); Mean Platelet Vol. 9.6 fl (6.2-12.0); NRBC Flagged by Analyzer 0 % (0-5); Platelet Count 253 K/mm3 (150-450); RBC Distribution Width CV 12.5 % (11.6-14.6); RBC Distribution Width SD 41.5 fl (35.1-43.9); Red Blood Count 4.51 M/mm3 (4.6-6.2); White Blood Count 8.3 K/mm3 (4.4-11.0)
[2025-02-06 10:39] LABS: AST(SGOT) 19 U/L (<=37); Alanine Aminotransfer ALT/SGPT 18 U/L (<=46); Albumin, Serum 4.1 g/dL (3.4-4.8); Alkaline Phosphatase 66 U/L (40-129); Anion Gap 11 (5-15); BUN 15 mg/dL (4-19); BUN/Creat Ratio 26.4 RATIO (10-20); Calcium,Total 9.0 mg/dL (7.6-11.0); Carbon Dioxide 24.5 mmol/L (21.0-32.0); Chloride 95 mmol/L (98-108); Globulin 2.5 g/dL (2.2-4.2); Glucose 93 mg/dL (70-99); Potassium 4.4 mmol/L (3.3-5.1); Uric Acid 2.5 mg/dL (3.5-7.2)
== END | disposition home or self-care (01) ==
PROVIDERS: PCP Internal Medicine; Referring Provider Podiatrist; Visit Provider Podiatrist
DX: M79.672 Pain in left foot (principal)
CPT/HCPCS: 36415; 80053; 84550; 85025

== ENCOUNTER → 2025-02-20 | Outpatient (CLI) | payer OTHER, SELFPAY ==
--- NOTE | 2025-02-20 10:33 | VDLE_ITS ---
Reason For Study Reason For Study: BLE Pain RIGHT LEFT GSV is normal. GSV is normal. CFV is compressible, spontaneous, phasic, competent CFV is compressible, spontaneous, phasic, competent, and demonstrates normal augmentation. and demonstrates normal augmentation. FV is compressible, spontaneous, phasic, competent FV is compressible, spontaneous, phasic, competent and demonstrates normal augmentation. and demonstrates normal augmentation. POP V is compressible, spontaneous, phasic, competent POP V is compressible, spontaneous, phasic, competent and demonstrates normal augmentation. and demonstrates normal augmentation. T/P Trunk is compressible. T/P Trunk is compressible. PTV is compressible. PTV is compressible. RT PerV is compressible. LT PerV is compressible. Procedure Lt Soleal Vein is compressible. This is a venous duplex using B-mode, color flow and spectral Doppler. Exam performed portable in patient room. The exam was diagnostic. A preliminary report was called and/or faxed to Dr. De La Paz. COMPARE TO STUDY DATED 11/07/2024. VL/Venous Duplex US - Fabricio Extrem Interpretation Summary Deep veins of the bilateral lower extremities are patent and compressible segme ntally. There is no evidence of bilateral lower extremity deep vein thrombosis. The bilateral great saphenous veins appea r patent and compressible segmentally. Ordering Physician: Beck De La Paz Referring Physician: Jb Merlos Performed By: Omar Quezada, RVT
== END | disposition home or self-care (01) ==
LOC: CVS 10:31
PROVIDERS: PCP Internal Medicine; Referring Provider Internal Medicine Cardiovascular Disease; Visit Provider Internal Medicine Cardiovascular Disease
DX: I82.452 Acute embolism and thrombosis of left peroneal vein (principal); R52 Pain, unspecified
CPT/HCPCS: 93970